=== PATIENT | female | born 1945 | race Caucasian/White ===

== ENCOUNTER 2017-04-14 16:29 | Inpatient (IN) | payer MEDICARE, OTHER ==
[2017-04-14 18:17] LABS: #Eosinphils 0.1 thou/uL (0.0-0.7); #Lymphocytes 1.1 thou/uL (1.20-3.40); #Monocytes 0.5 thou/uL (0.11-0.59); #Neutrophils 6.5 thou/uL (1.40-6.50); %Basophils 0.3 % (0.0-1.0); %Eosinophils 1.1 % (0.0-10.0); %Lymphocytes 13.2 % (21.0-51.0); %Monocytes 5.8 % (0.0-10.0); %Neutrophils 79.6 % (42.0-75.0); Hemoglobin 9.7 g/dL (12.0-16.0); Mean Corpuscular Volume 93.6 fl (81.0-99.0); Mean Platelet Volume 7.4 fL (7.4-10.4); Platelet Count 163 thou/uL (130-400); Red Blood Cell (RBC) Count 3.22 mill/uL (4.20-5.40); White Blood Cell (WBC) Count 8.2 thou/uL (4.8-10.8)
[2017-04-14 18:43] LABS: ALT (SGPT) 21 U/L (8-55); AST (SGOT) 19 U/L (5-34); Albumin 3.9 g/dL (3.4-4.8); Alkaline Phosphatase 55 U/L (40-150); Anion Gap 18 mmol/L (10-20); BUN (Urea Nitrogen) 74 mg/dL (9.8-20.1); Bilirubin, Total 0.4 mg/dL (0.2-1.2); Calc. Creatinine Clearance 0 mL/min (70-130); Calcium 9.1 mg/dL (7.8-10.44); Carbon Dioxide 19 mmol/L (23-31); Chloride 105 mmol/L (98-107); Estimated GFR-MDRD 7; Globulin 2.7 g/dL (2.4-3.5); Glucose 68 mg/dL (80-115); Potassium 5.7 mmol/L (3.5-5.1); Protein, Total 6.6 g/dL (6.0-8.3); Sodium 136 mmol/L (136-145)
[2017-04-14] MEDS ORDERED: Furosemide 40 MG/4 ML VIAL ONE (19:28)
[2017-04-14] MEDS ORDERED: Nitroglycerin 2% Ointment 1 INCH/1 GM Packet ONE (19:28)
[2017-04-14 19:46] LABS: CKMB 5.9 ng/mL (0-6.6)
--- NOTE | 2017-04-14 19:50 | RAD ---
PORTABLE CHEST: 04/14/17 HISTORY: Shortness of breath. COMPARISON: 09/24/13 study. The heart size is enlarged with postop sternotomy changes. The lungs are clear of infiltrates. No sig ns of failure. IMPRESSION: Cardiomegaly. POS: PAUL
[2017-04-14] MEDS ORDERED: Dextrose 50% Abboject 50 ML SYRINGE SLOW IVP PRN (23:03)
[2017-04-14] MEDS ORDERED: HumaLOG 300 UNITS/3 ML VIAL SC PRN (23:03)
[2017-04-14] MEDS ORDERED: Dextrose 5% in Water 1,000 ML IV PRN (23:03)
--- NOTE | 2017-04-14 23:09 | PDOC.EVN ---
Event Note - Event Note Event Note: Patient seen and examined by me. History, exam, assessment and plan reviewed/ discussed with Dr. Berkowitz and agree with resident's documentation. Briefly this is a 71 year old female with history of HTN, DM, CKD, CAD s/p CABG and AVR presents complaining of 1 week history of worsening lower extremity edema. States that she ahs gained 12 pounds over the week. Has noted some increased SOB since this started. Denies any CP, BROWN, diaphoresis. Denies any fever/ chills. States that she does not add salt to her food. PE: Afebrile BP 170-190s/80s Lungs- CTA b/l CV- RRR, 3/6 systolic murmur; Abd - soft, nt/nd Ext- no C/C 2+ edema lower ext. EKG- NSR; nonspecific ST changes ; no change from prior EKG; CXR- cardiomegaly BUN/Cr 74/6.23 (06/2016- 48/3.23) . BNP 985 A/P: 1) Volume overload secondary to worsening renal function- given lasix in ER with improvement in symptoms; plan to consult nephrology in AM (pt sees Dr. Cuello); most likely will need dialysis; 2) Hyperkalemia- mild; no EKG changes; continue to monitor. 3) DM- continue home meds and monitor BG. 4) HTN- resume home meds and adjust as needed.
[2017-04-14 23:18] VITALS: BMI 28.9
[2017-04-15 00:17] LABS: CKMB 4.8 ng/mL (0-6.6); Troponin I 0.053 ng/mL (< 0.028)
[2017-04-15] MEDS ORDERED: Furosemide 40 MG/4 ML VIAL SLOW IVP SCH ×2 (02:00→08:00)
[2017-04-15 05:37] LABS: CKMB 4.1 ng/mL (0-6.6); Troponin I 0.084 ng/mL (< 0.028)
[2017-04-15 05:42] LABS: Anion Gap 15 mmol/L (10-20); BUN (Urea Nitrogen) 77 mg/dL (9.8-20.1); Calc. Creatinine Clearance 11 mL/min (70-130); Carbon Dioxide 22 mmol/L (23-31); Chloride 107 mmol/L (98-107); Estimated GFR-MDRD 7; Glucose 115 mg/dL (80-115); Phosphorus 7.6 mg/dL (2.3-4.7); Potassium 4.9 mmol/L (3.5-5.1); Sodium 139 mmol/L (136-145)
--- NOTE | 2017-04-15 05:48 | HP-2 ---
CODE STATUS: Full. PRIMARY CARE PHYSICIAN: This is a city call, the patient is from out of town ATTENDING PHYSICIAN: Dr. Montse Michael RESIDENT: PGY1 Dr. Yamileth Berkowitz CHIEF COMPLAINT: Lower extremity swelling. HISTORY OF PRESENT ILLNESS: This is a 71-year-old female that presented secondary to lower extremity swelling for the past week. She states that she had also had some shortness of breath with moderate exertion and two-pillow orthopnea. Symptoms have worsened and the patient has noticed weeping from the right lower extremity, which prompted her to come into the emergency department. The patient als o endorses some abdominal swelling which has progressed over the course of a few days. The patient d oes not have a previous diagnosis of congestive heart failure. She is uncertain of when her last ech o was done; however, she is fairly certain it was greater than a year ago. The patient denies any co ugh, palpitations, chest pain, nausea, vomiting or weakness. She does have a history of coronary art bill disease for which she had a 1 vessel CABG. Also of note, the patient has severe chronic kidney d isease. She is not currently on dialysis. She does see Dr. Cuello as an outpatient. She has not been placed on any medication specifically for her chronic kidney disease. The patient was given 40 mg of Lasix in the emergency department and some nitro paste which seemed to help with the shortness of br eath and the lower extremity swelling. PAST MEDICAL HISTORY: 1. Coronary artery disease status post CABG 1 vessel. 2. Diabetes mellitus type 2. 3. Hypertension. 4. Stage 5 chronic kidney disease. 5. Chronic normocytic anemia. PAST SURGICAL HISTORY: 1. Aortic valve replacement in 09/2013. 2. CABG x1 vessel. 3. Left hip surgery. ALLERGIES: PENICILLIN. MEDICATIONS: 1. Terazosin 10 mg daily. 2. Isosorbide dinitrate 20 mg t.i.d. 3. Clonidine 0.2 mg daily. 4. Nifedipine 90 mg daily. 5. Aspirin 81 mg daily. 6. Novolin 70/30 20 units subcu q.a.m. and 10 units subcutaneous p.m. 7. Vitamin D3 2000 units daily. 8. Cipro 500 mg b.i.d. (patient just finished this antibiotic for treatment of UTI). FAMILY HISTORY: Noncontributory. SOCIAL HISTORY: The patient denies tobacco, alcohol, or drug use. REVIEW OF SYSTEMS: A 12 point review of systems was performed, all were negative except as listed in the HPI and as indicated below. The patient does endorse a 12 pound weight gain within the last 2 w eeks. She has noticed some significant exercise intolerance and shortness of breath within the last week or two. The lower extremity swelling really started within the last week. She has not had prob lems with lower extremity swelling previously. PHYSICAL EXAMINATION: VITAL SIGNS: Blood pressure 186/79, pulse 75, respiratory rate 16, T-max 97.8, pulse ox 94% on room air, current weight 81 kilograms. GENERAL: Alert and oriented x3, no acute distress. Well-developed, well-nourished, obese, appropria tely interactive. EYES: Pupils equally round, reactive to light and accommodation. Extraocular muscle intact. ENT: Nasal mucosa within normal limits. NECK: Supple. No lymphadenopathy. CARDIOVASCULAR: Regular rate and rhythm, there is a 3/6 systolic murmur and a possible S3. Radial a nd pedal pulses 2+. RESPIRATORY: Normal effort, no retractions. Lungs are clear to auscultation bilaterally. SKIN: Warm and dry. No cyanosis or lesions. ABDOMEN: Soft, nontender to palpation and bowel sounds are positive in all 4 quadrants. Patient rosario s have a palpable reducible ventral hernia. EXTREMITIES: No clubbing or cyanosis, the patient has 2+ pitting edema on the right lower extremity, 1+ pitting edema on the left lower extremity. The right lower extremity is notably more swollen martina n the left. MUSCULOSKELETAL: Structure within normal limit. Tone within normal limit. NEUROLOGIC: No focal deficits. Cranial nerves II-XII intact. GCS 15. PSYCHIATRIC: Appropriate. LABORATORY DATA: 1. CBC reveals a white blood cell count 8.2, hemoglobin 9.7, hematocrit 30.2, platelets 163. 2. Sodium 136, potassium 5.7, chloride 105, bicarbonate 19, BUN 74, creatinine 6.23, glucose is 68, calcium 9.1, total protein 6.6, albumin 3.9, AST 19, ALT 21, alkaline phosphatase 55, and total bilir ubin 0.4. 3. CK-MB 5.9, troponin 0.030. 4. BNP 986. 5. Chest x-ray: Cardiomegaly. ASSESSMENT AND PLAN: This is a 71-year-old female with past medical history of coronary artery disea se status post coronary artery bypass graft, hypertension, and chronic kidney disease stage 5 that pr esents with shortness of breath and lower extremity swelling. 1. New onset congestive heart failure versus volume overload from chronic kidney disease stage 5. T he patient was admitted to telemetry. We will consult Cardiology for potential new-onset congestive heart failure. Additionally, we will consult the patient's customer order clerk, Dr. Cuello. I did discuss the need for dialysis as her creatinine has risen from 3 to 6 since June. Additionally, her potassium is elevated at 5.7. The patient will be given a dose of Kayexalate 30 mg to assist with decreasing t he potassium. The patient was given 40 mg IV Lasix in the emergency department which did improve her symptoms. She has been urinating frequently since administration of the Lasix. The patient has not been on Lasix previously. We will give an additional dose of IV Lasix, 40 mg in the a.m. and reeval uate. An echo is pending for the a.m. We will continue to monitor the patient's I's and O's and do a daily weight to ascertain how much fluid the patient is retaining. Due to worsening kidney disease , a phosphorus and a PTH were ordered to assess the extent of the kidney disease and possible effects systemically. 2. Chronic kidney disease stage 5, not on hemodialysis. The patient likely needs dialysis based on BUN and creatinine at today's visit. We will consult Dr. Cuello in the morning as this is the patient's customer order clerk. The phosphorus is pending. Potassium was elevated and 1 dose of Kayexalate was given . PTH is pending to evaluate possible bone involvement. We will not repeat Lasix today, but will gi ve an additional dose tomorrow and reevaluate patient's status at that time. The patient is stable a t this time. She had no significant EKG changes and she is satting well on room air. 3. Hyperkalemia, likely secondary to chronic kidney disease. Kayexalate 30 mg x1 was given and we w ill monitor with a.m. BMP. 4. Diabetes mellitus type 2. We will continue patient's home medications and place her on a mild sl iding scale insulin while here in the hospital. We will place patient with hypoglycemia protocol. O f note, patient's blood sugar was 68 on admission. We will check again before administrating her a.m . dose of Novolin. 5. Coronary artery disease status post coronary artery bypass graft. We will trend troponins and co ntinue to give patient aspirin. 6. Hypertension. Continue home medications and monitor. 7. Deep venous thrombosis prophylaxis. SCDs. DISPOSITION AND LENGTH OF HOSPITAL STAY: Two days. Symptomatic medications will be provided. History of physical exam as well as management discussed with Dr. Montse Michael.
[2017-04-15] MEDS ORDERED: Furosemide 40 MG TAB PO SCH (07:30)
--- NOTE | 2017-04-15 08:06 | PDOC.FM ---
- Subjective Subjective: The patient reports that her breathing has improved since getting the lasix in the ED. She is breathing comfortably on RA. She is feeling a little better this AM. Denies any chest pain. She has no specific complaints. - Objective MAR Reviewed: Yes Vital Signs & Weight: Vital Signs (12 hours) Temp Pulse Resp BP Pulse Ox 04/15/17 03:44 98.3 F 78 18 182/92 H 95 04/15/17 01:09 82 20 158/78 H 04/15/17 00:45 88 20 231/103 H 95 04/14/17 23:03 97.2 F L 74 20 226/97 H 94 L 04/14/17 22:35 96.2 F L 82 20 95 Weight Weight 80.377 kg I&O: 04/14/17 04/15/17 04/16/17 06:59 06:59 06:59 Intake Total 490 Output Total 1200 Balance -710 Result Diagrams: 04/14/17 18:04 04/15/17 04:30 <Vane Armstrong - Last Filed: 04/15/17 08:04> - Objective Vital Signs & Weight: Vital Signs (12 hours) Temp Pulse Resp BP BP Pulse Ox 04/15/17 09:31 71 160/75 H 04/15/17 07:36 98.4 F 71 18 160/75 H 96 04/15/17 03:44 98.3 F 78 18 182/92 H 95 04/15/17 01:09 82 20 158/78 H 04/15/17 00:45 88 20 231/103 H 95 04/14/17 23:03 97.2 F L 74 20 226/97 H 94 L 04/14/17 22:35 96.2 F L 82 20 95 Weight Weight 80.377 kg I&O: 04/14/17 04/15/17 04/16/17 06:59 06:59 06:59 Intake Total 490 Output Total 1200 Balance -710 Result Diagrams: 04/14/17 18:04 04/15/17 04:30 <Shaheen Cunningham - Last Filed: 04/15/17 10:11> Phys Exam - Physical Examination Constitutional: NAD HEENT: moist MMs Neck: no nodes, full ROM Respiratory: no wheezing, no rales, no rhonchi, clear to auscultation bilateral Cardiovascular: RRR 3/6 systolic murmur Gastrointestinal: soft, non-tender, positive bowel sounds Musculoskeletal: edema present (1+ pitting edema, worse on the R LE) Neurological: non-focal, moves all 4 limbs Psychiatric: normal affect, A&O x 3 <Vane Armstrong - Last Filed: 04/15/17 08:04> Dx/Plan (1) ESRD (end stage renal disease) Code(s): N18.6 - END STAGE RENAL DISEASE Status: Acute Plan: Patient has had significant decline in kidney function since 06/2016. Her Creatinine has gone from 3->6 and GFR has decreased to 7. Phosphorous 7.6, K was elevated initially, the patient is s/p kayexalate and lasix which improved the potassium to normal. No EKG changes. Dr. Cuello is her bowling teacher, I consulted him and he confirmed that she will need to be started on dialysis. -Deny with General surgery has been consulted for dialysis catheter placement -NPO for dialysis catheter placement -Patient will get dialysis (2) Elevated brain natriuretic peptide (BNP) level Code(s): R79.89 - OTHER SPECIFIED ABNORMAL FINDINGS OF BLOOD CHEMISTRY Status : Acute Plan: Elevated BNP to 985.8. The patient has no known h/o CHF. This could all be 2/2 ESRD. -Will get Echo to r/o heart failure -Monitor on tele (3) Elevated troponin Code(s): R74.8 - ABNORMAL LEVELS OF OTHER SERUM ENZYMES Status: Acute Plan: Troponins are elevated 2/2 ESRD. Patient has no EKG signs of ischemia and is having no chest pain. (4) Type 2 diabetes mellitus Status: Acute QualifierTitle: Diabetes mellitus complication status: with unspecified complications Diabetes mellitus prison insulin use: with medical file clerk use Qualified Code(s): E11.8 - Type 2 diabetes mellitus with unspecified complications; Z79.4 - forming machine tender (current) use of insulin; Z79.4 - forming machine tender ( current) use of insulin; Z79.4 - forming machine tender (current) use of insulin; Z79.4 - snf (current) use of insulin Plan: Continue home 70/30 regimen, SSI, Accuchecks ACHS, Diabetic diet after patient is no longer NPO (5) Anemia in chronic kidney disease Code(s): N18.9 - CHRONIC KIDNEY DISEASE, UNSPECIFIED; D63.1 - ANEMIA IN CHRONIC KIDNEY DISEASE Status: Acute QualifierTitle: Chronic kidney disease stage: on chronic dialysis Qualified Code(s): N18.6 - End stage renal disease; D63.1 - Anemia in chronic kidney disease; D63.1 - Anemia in chronic kidney disease; Z99.2 - Dependence on renal dialysis; Z99.2 - Dependence on renal dialysis; Z99.2 - Dependence on renal dialysis; Z99.2 - Dependence on renal dialysis Plan: Patient is about to be started on dialysis. She receives Epogen for this. Will monitor. (6) Hypertension Code(s): I10 - ESSENTIAL (PRIMARY) HYPERTENSION Status: Acute QualifierTitle: Hypertension type: unspecified Qualified Code(s): I10 - Essential (primary) hypertension Plan: Continue home meds. Patient's BP's were very elevated, however when a manual BP was checked it was much lower. -Will check only manual BP's on the patient -Continue home meds (7) Aortic stenosis Code(s): I35.0 - NONRHEUMATIC AORTIC (VALVE) STENOSIS Status: Acute QualifierTitle: Cardiac valve disease etiology: etiology unspecified Qualified Code(s): I35.0 - Nonrheumatic aortic (valve) stenosis Plan: This is likely the cause of 3/6 systolic murmur -Will get an echo (8) Coronary atherosclerosis of [place] coronary artery Code(s): I25.10 - ATHSCL HEART DISEASE OF [place] CORONARY ARTERY W/O ANG PCTRS Status: Acute QualifierTitle: [place] vs. transplanted heart: [place] heart Associated angina: angina presence unspecified Qualified Code(s): I25.10 - Atherosclerotic heart disease of [place] coronary artery without angina pectoris Plan: Continue aspirin (9) Status post coronary artery bypass graft Code(s): Z95.1 - PRESENCE OF AORTOCORONARY BYPASS GRAFT Status: Acute Plan: No chest pain currently, continue home meds <Vane Armstrong - Last Filed: 04/15/17 08:04> Attending Addendum - Attending Addendum I personally evaluated the patient and discussed the management with Dr. Armstrong. I agree with the History, Examination, Assessment and Plan documented above with any addition or exceptions noted below. Patient with chronic renal disease that has now progressed to ESRD necessitating HD. She is going for venous mapping and HD catheter placement this morning. Further renal treatment per Dr. Cuello. She has some evidence of CHF , and she likely has some degree of that due to her history of severe aortic stenosis. However, will obtain Echo to ensure this is not just volume overload from CKD. If abnormal, will need Cardiology consult due to new onset HF. She has anemia of chronic disease, continue Epogen. BP elevated, will need escalation of therapy, likely increase of Isordil dosage to help offset increased preload associated with volume overload. <Shaheen Cunningham - Last Filed: 04/15/17 10:11>
[2017-04-15] MEDS ORDERED: Epoetin (ESRD) 20,000 UNITS/ML SC SCH (09:00)
[2017-04-15] MEDS: NIFEdipine XL 90 MG TAB PO SCH (09:31)
[2017-04-15] MEDS: cloNIDine 0.1 MG TAB PO SCH ×2 (09:32→20:47)
[2017-04-15] MEDS: Isosorbide Dinitrate 20 MG TAB PO SCH ×3 (09:32→20:47)
[2017-04-15] MEDS: Aspirin 81 mg Enteric Coated Tablet PO SCH (09:33)
--- NOTE | 2017-04-15 09:51 | HP ---
HISTORY OF PRESENT ILLNESS: Ms. Lean Simms is a 71-year-old female who lives in [place], . I took care of her for dialysis access many years ago. The patient has been followed by Litzy Cuello for progressive chronic kidney disease and now needs dialysis access. She has a hypertensive diabetic nephropathy. She has had a history of aortic valve replacement, on aspirin daily and a sing le coronary artery bypass grafting. She is followed by Dr. Levy, last saw him a few months ago. S he denies any cardiac symptoms. GFR is markedly low and Dr. Cuello has asked for dialysis access. She has a Hep-Lock in her distal right forearm, she is right-handed. ALLERGIES: PENICILLIN. TOBACCO: None. ALCOHOL: None. HOME MEDICATIONS: Cipro b.i.d., vitamin D3, insulin 10 units at bedtime, Catapres 0.1 mg b.i.d., nif edipine, Procardia-XL 90 mg daily, NPH insulin 70/30 20 units subcutaneously a.m., aspirin 81 mg a da y, terazosin 2 mg a day, isosorbide 20 mg t.i.d. PAST SURGICAL HISTORY: Coronary artery bypass grafting, one vessel and aortic valve replacement in 2 014. She is followed by Dr. Levy. Total hip replacement in left, laparoscopic cholecystectomy wit h past colonoscopy two years ago, normal, no polyps. PAST MEDICAL HISTORY: Insulin-dependent diabetes mellitus, hypertension, end-stage renal disease, pr osthetic aortic valve. REVIEW OF SYSTEMS: Ten point noncontributory. PHYSICAL EXAMINATION: VITAL SIGNS: 5 foot 6, 177 pounds, 28 BMI, 98.4, 71, 160/75. HEENT: Unremarkable. Neck, groins, axilla without lymphadenopathy, no overt neurological deficits. Pupils equal, round, reactive to light. CARDIAC: Regular rate and rhythm. LUNGS: Clear to auscultation. ABDOMEN: Soft, obese, umbilical hernia. EXTREMITIES: Unremarkable. Palpable radial pulses. LABORATORY DATA: Hemoglobin 9.7, white count 8.2, sodium 139, potassium 4.9, BUN 77, creatinine 6.3, GFR 7. ASSESSMENT AND PLAN: 1. End-stage renal disease in need of dialysis access. The patient is scheduled today for placement of a hemodialysis catheter and also central line to preserve her veins. We will plan placement of r ight or left arm dialysis fistula and/or prosthetic graft pending vein quality. Ultrasound vein charles ing will be done this morning, she is on her way to do that now. She understands the risks of infect ion, bleeding, reoperation, ischemic and revisions, thrombosis, possible use of prosthetic grafts and consents. 2. Coronary artery disease, stable. 3. Prosthetic aortic valve. 4. Insulin-dependent diabetes mellitus. 5. Hypertension. 6. Obesity, mild BMI of 28. 7. Umbilical hernia, asymptomatic. 8. Patient is not interested in peritoneal dialysis at this time. She understands that if she ever becomes interested in this umbilical hernia repair, it will be necessary at that time.
--- NOTE | 2017-04-15 10:38 | CON ---
DATE OF SERVICE: 04/15/2017 RENAL MEDICINE HISTORY: Ms. Simms is a 71-year-old white female with chronic renal failure from hypertensive nephr opathy. She has in the past been diagnosed with right-sided obstruction and a ureteral stent has erica manzanares been placed by Dr. Mariee. Renal function has stabilized since that time, but it has worsened in the last several weeks. She is now admitted for generalized edema. Her leg swelling has worsened a nd she has more facial edema. We are now being consulted for her chronic renal failure. Please note her creatinine has worsened with creatinine more than 6 mg percent. REVIEW OF SYSTEMS: Positive for generalized edema. Mild shortness of breath, no nausea, no vomiting , no diarrhea, no constipation. Appetite and energy level is fair. No headache, no diplopia, no fev er or chills. No gross hematuria. No dysuria. No hematochezia, no melena, no hematemesis, no fever or chills, no joint pains. No new skin rash. HOME MEDICATIONS: Includes the following; vitamin D3 2000 international units daily, vitamin B12 100 0 mcg every day, Isordil 20 mg tab t.i.d., clonidine 0.1 mg 2 tablets at bedtime, calcitriol 0.25 mcg daily, nifedipine ER 90 mg once a day, aspirin 81 mg tab once a day, terazosin 2 mg tab at bedtime, Novolin 70/30 units subcu in the morning and 10 units at night. PAST MEDICAL HISTORY: 1. Hypertension. 2. Chronic renal failure from hypertensive nephropathy. 3. Hyperlipidemia. 4. Type 2 diabetes mellitus. 5. History of proteinuria. 6. Valvular heart disease. PAST SURGICAL HISTORY: 1. Status post cardiac catheterization. 2. Status post CABG. 3. Status post aortic valve replacement. 4. Status post colonoscopy. 5. Status post back surgery. 6. Status post laparoscopic cholecystectomy. ALLERGIES: PENICILLIN. TRAUMA: None. IMMUNIZATIONS: Up to date. HOSPITALIZATIONS: Please see past medical history. FAMILY HISTORY: No family history of ESRD. Positive history of bladder cancer. 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 No history of smoking. Alcohol none. No blood transfusion. Education high school. Active lifestyl e. PHYSICAL EXAMINATION: VITAL SIGNS: Blood pressure is 160/75, heart rate 71, respiratory rate 18, temperature 98.4, pulse o x 96%. GENERAL: Awake, alert, comfortable, not in distress. SKIN: Adequate turgor. HEENT: Slightly pale conjunctivae, anicteric sclerae. NECK: No neck mass, no carotid bruits, no JVD. CHEST: No deformities. LUNGS: Decreased breath sounds. No wheezing, no crackles. HEART: Normal sinus rhythm. Grade 2/6 systolic murmur, no gallops or rubs. ABDOMEN: Globular, soft, nontender. EXTREMITIES: Positive for edema. NEUROLOGIC: Moving all extremities. No tremors, no asterixis, no ataxia. LABORATORY DATA: Laboratories of 04/15/2017; sodium 139, potassium 4.9, chloride 107, carbon dioxide 22, BUN 77, creatinine 6.33, phosphorus is 7.6, troponin I 0.084, and TSH 4.3. IMAGING DATA: Chest x-ray of 04/14/2017 shows clear - no CHF, no infiltrates. ASSESSMENT AND PLAN: 1. Chronic renal failure, progressive worsening of her renal dysfunction. Our plan is to initiate h emodialysis with this patient. She prefers hemodialysis than peritoneal dialysis. Her GFR was noted at 7 mL per minute. I have consulted Surgery for placement of permanent dialysis catheter as well a s for possible AV fistula. 2. Anemia. Start Epogen 7500 units subcutaneously every week, ferrous sulfate 325 mg b.i.d. 3. Hyperphosphatemia. Start Renvela 800 mg 1 tab t.i.d. with meals. Overall, prognosis remains guarded.
[2017-04-15] MEDS ORDERED: Midazolam HCl 2 mg/2 ml Vial ONE ×2 (11:05→11:30)
[2017-04-15] MEDS ORDERED: Fentanyl 100 MCG/2 ML VIAL ONE ×2 (11:05→11:30)
[2017-04-15] MEDS ORDERED: Heparin 1,000 UNITS/ML VIAL ONE (11:11)
[2017-04-15] MEDS ORDERED: Levofloxacin 500 mg/D5W 100 ml Premix Bag ONE (11:26)
[2017-04-15] MEDS ORDERED: Norepinephrine 4 MG/4 ML VIAL ONE (11:30)
[2017-04-15] MEDS ORDERED: Norepinephrine 8 MG/0.9% NS 0 ML ONE (11:30)
[2017-04-15] MEDS ORDERED: Propofol 1,000 MG/100 ML VIAL IV ONE (11:30)
[2017-04-15] MEDS ORDERED: Bupivacaine/Epinephrine 0.25% 30 ML VIAL ONE (11:32)
[2017-04-15] MEDS ORDERED: Heparin 5,000 UNITS/ML VIAL ONE (11:32)
[2017-04-15] MEDS ORDERED: Sodium Chloride 0.9% 10 ML ONE (11:32)
[2017-04-15] MEDS ORDERED: Heparin 10,000 UNITS/1 ML VIAL ONE (11:32)
[2017-04-15] MEDS ORDERED: Lidocaine 2% PF 5 ML VIAL ONE (11:32)
[2017-04-15] MEDS ORDERED: Protamine Sulfate 50 MG/5 ML VIAL ONE (11:32)
--- NOTE | 2017-04-15 12:43 | ULT ---
BILATERAL UPPER EXTREMITY VENOUS DUPLEX SONOGRAM FOR VEIN MAPPING: History: Renal failure. Need for hemodialysis access. FINDINGS: Good color and spectral doppler flow are present within the subclavian and internal jugular veins harvey aterally. Measurements are as follows: RIGHT UPPER EXTREMITY BRACHIAL ARTERY: 5 mm RADIAL ARTERY: 3 mm ULNAR ARTERY: 2 mm CEPHALIC VEIN Proximal Arm: 3 mm Mid Arm: 3 mm Distal Arm: 2 mm Antecubital Fossa: 2 mm Proximal Forearm: 1 mm Mid Forearm: 3 mm Distal Forearm: 2 mm BASILIC VEIN Proximal Arm: 9 mm Mid Arm: 7 mm Distal Arm: 6 mm Antecubital Fossa: 5 mm Proximal Forearm: 3 mm Mid Forearm: 3 mm Distal Forearm: 1 mm LEFT UPPER EXTREMITY BRACHIAL ARTERY: 4 mm RADIAL ARTERY: 2 mm ULNAR ARTERY: 2 mm CEPHALIC VEIN Proximal Arm: Not seen Mid Arm: Not seen Distal Arm: 2 mm Antecubital Fossa: 1 mm Proximal Forearm: 2 mm Mid Forearm: 2 mm Distal Forearm: 2 mm BASILIC VEIN Proximal Arm: 4 mm Mid Arm: 5 mm Distal Arm: 5 mm Antecubital Fossa: 4 mm Proximal Forearm: 4 mm Mid Forearm: 1 mm Distal Forearm: 1 mm IMPRESSION: Patient vascular structures within each upper extremity with measurements as detailed above. POS: [facility]
[2017-04-15 12:50] LABS: HBSAB Concentration 0.11 mIU/mL; HBSAg Index 0.16 S/CO (0-0.99); Hep B Core Total Ab Non-Reactive (NonReactive); Hep B Core Total Index 0.07 S/CO (0-0.79); Hep B Surf AB Non-Reactive (NonReactive); Hep B Surf Ag Non-Reactive S/CO (NonReactive); Hep C IgG Ab Non-Reactive (NonReactive); Hep C Index 0.15 S/CO (0-0.79)
[2017-04-15] MEDS ORDERED: Promethazine HCl 25 MG/ML VIAL SLOW IVP PRN (13:17)
[2017-04-15] MEDS ORDERED: Meperidine HCl/PF 25 MG/ML VIAL SLOW IVP PRN (13:17)
[2017-04-15] MEDS ORDERED: Ondansetron HCl/PF 4 MG/2 ML Vial IVP PRN (13:17)
[2017-04-15] MEDS ORDERED: Morphine Sulfate 2 MG/ML SYRINGE SLOW IVP PRN (13:17)
--- NOTE | 2017-04-15 13:27 | OP ---
DATE OF PROCEDURE: 04/15/2017 PREOPERATIVE DIAGNOSES: End-stage renal disease, poor veins by ultrasound vein mapping. POSTOPERATIVE DIAGNOSES: End-stage renal disease, poor veins by ultrasound vein mapping. Good cepha lic vein, right wrist. PROCEDURE: Left IJ central line, right IJ cuffed tunnel hemodialysis catheter, angiodynamics precurv ed. Ultrasound and fluoroscopy used for placement. Right Adam fistula calibrated to a 4 mm oliveira ry dilator. Radial artery was heavily calcified, arterial sclerotic, but had good flow. SURGEON: Dr. Darren Barclay ANESTHESIA: Regional, TIVA. Local 0.25% Marcaine with epinephrine, 30 mL, mixed with 2% Xylocaine, 10 mL. PROCEDURE IN DETAIL: The patient was taken to the operating room where under intravenous sedation, r ight arm regional anesthesia, chest, neck, and right upper extremity was prepared with ChloraPrepdr bergman in routine fashion. Local anesthetic mixture infiltrated into skin and subcutaneous tissue abou t the operative site for line placement. Using ultrasound guidance, right and left internal jugular vein were cannulated, trocar catheters placed and J-wire threaded and trocar catheter removed. Skin incised and enlarged sharply on both sides. Stab incision made right chest. Using the tunneling dev ice, the precurved angiodynamics cuffed tunnel hemodialysis catheter tunneled between the two incisio ns, placing the fabric cuff beneath the skin exit site and catheter secured with 2 interrupted suture s of 3-0 nylon. Smaller and medium sized dilators placed over the J-wire in the internal jugular vei n and removed. Dilator and pull-away sheath placed over the J-wire in the superior vena cava and dil ator and J-wire removed. Catheter placed with pull-away sheath and pull-away sheath removed. Platys ma approximated with 4-0 Monocryl, skin with subdermal 4-0 Monocryl and DermaGlue applied. Each port aspirated blood and flushed with saline solution and heparinized saline solution 1000 units heparin per mL indicated volume of the port. Sterile dressings and a Biopatch applied. Seldinger technique used to place a left IJ triple lumen catheter securing it with 3-0 nylon suture a nd Biopatch. Each port aspirated of blood and flushed with saline solution. Sterile dressing applie d. Attention was turned to the right wrist. Despite ultrasound vein mapping noting poor venous structur es, there was noted to be a good cephalic vein at the wrist. Incision was made longitudinal between the radial artery and cephalic vein and carried down through the skin and subcutaneous tissue and bot h were dissected free. Cephalic vein dissected free dividing branch between 4-0 silk ties and clips and ligating the stump on the hand side with 3-0 silk tie. Vein spatulated calibrated with coronary dilators 1 mm to a 4 mm coronary dilator without restriction. It was dissected free proximally, bran ches ligated between 4-0 silk ties and clips. The patient was given 6000 units of heparin intravenou sly. After adequate circulation time, the radial artery was clamped proximally and distally and long itudinal arteriotomy made sharply, and accordingly the veins spatulated to appropriate length and con tinuous suture of 6-0 Prolene used for a 2 cm anastomosis. Good hemostasis obtained with 6-0 Prolene . The patient was given protamine intravenously 25 mg. Subcutaneous tissues approximated with 3-0 M onocryl, skin with subdermal 4-0 Monocryl and DermaGlue applied. Good Doppler signals noted in the c ephalic vein outflow. The patient tolerated the procedure well.
--- NOTE | 2017-04-15 14:24 | RAD ---
PORTABLE CHEST: Date: 04-15-17 Provided Clinical History: Central line placement. FINDINGS: Comparison 04-14-17. Cardiac silhouette appears enlarged. Median sternotomy changes are again seen. Left IJ central line i s noted with tip overlying the SVC as well as right IJ dialysis catheter with tips overlying the expe cted location of the SVC/brachiocephalic confluence. No focal consolidation or pleural fluid or pneum othorax apparent. IMPRESSION: No evidence for an acute cardiopulmonary process. POS: HINA
[2017-04-15] MEDS: Sevelamer Carbonate 800 MG TAB PO SCH ×2 (15:21→17:50)
[2017-04-15] MEDS: Insulin NPH/Reg Insulin Hm 300 UNITS/3 ML VIAL SC SCH ×2 (15:22→20:47)
[2017-04-15] MEDS ORDERED: ePHEDrine/0.9% NaCl/PF SYRINGE 50 mg/10 ml ONE (16:22)
[2017-04-15] MEDS ORDERED: Propofol 200 MG/20 ML VIAL ONE (16:22)
[2017-04-15] MEDS ORDERED: Heparin 10,000 UNITS/ 10 ML VIAL ONE (16:22)
[2017-04-15] MEDS ORDERED: PHENYLEPHRINE-NS 100 MCG/ML 10 ML SYRINGE ONE (16:22)
[2017-04-15] MEDS ORDERED: Ondansetron HCl/PF 4 MG/2 ML Vial ONE (16:22)
[2017-04-15] MEDS ORDERED: Bupivacaine HCl 0.5%/Epinephrine 1:200,000/PF 30 ml Vial ONE (16:47)
[2017-04-15] MEDS: Terazosin HCl 1 MG CAP PO SCH (17:46)
[2017-04-15] MEDS: Acetaminophen 325 MG TAB PO PRN (20:47)
--- NOTE | 2017-04-16 08:18 | PRG ---
DATE OF SERVICE: 04/16/2017 SERVICE: Renal Medicine. SUBJECTIVE: Ms. Simms underwent dialysis catheter placement and AV fistula last night. She also un derwent a 1-hour hemodialysis. She did well. This morning, she voices no new complaints. She denie s any chest pain, shortness of breath, nausea or vomiting. She is currently tolerating dialysis. I am at the bedside supervising her dialysis. PHYSICAL EXAMINATION: VITAL SIGNS: Blood pressure is 150/76, heart rate 76, respiratory rate 14, temperature 97.9, pulse o x 96%. GENERAL: Noted to be awake and alert, comfortable, not in distress. SKIN: Adequate turgor. HEENT: Slightly pale conjunctivae, anicteric sclerae. NECK: No neck mass, no carotid bruits. No JVD. CHEST: No deformities. LUNGS: Clear breath sounds. No wheezing, no crackles. HEART: Normal sinus rhythm. No murmur, no gallops or rubs. ABDOMEN: Globular, soft, nontender, no masses. EXTREMITIES: No edema, no deformities. Right upper extremity positive for AV fistula, positive for bruit. MEDICATIONS: Of 04/16/2017 was reviewed. LABORATORY DATA: Of 04/14/2017, hemoglobin 9.7. On 04/15/2017, BUN 77, creatinine 6.33. On 017, glucose 114. ASSESSMENT AND PLAN: 1. Chronic renal failure/end-stage renal disease, hemodialysis has been initiated. She is toleratin g said treatment. My plan is to do a 2-hour hemodialysis today and a 3-hour hemodialysis in a.m. We will make arrangements for dialysis placement with the patient. For the moment, agree with current management. 2. Hypertension. Continue current blood pressure medications. 3. Anemia. Epogen has been started. 4. Hyperphosphatemia, Renvela has been also started with the patient.
[2017-04-16] MEDS: NIFEdipine XL 90 MG TAB PO SCH (09:55)
[2017-04-16] MEDS: Terazosin HCl 1 MG CAP PO SCH ×2 (09:56→20:41)
[2017-04-16] MEDS: cloNIDine 0.1 MG TAB PO SCH ×2 (09:56→20:41)
[2017-04-16] MEDS: Sevelamer Carbonate 800 MG TAB PO SCH ×3 (09:56→17:40)
[2017-04-16] MEDS: Aspirin 81 mg Enteric Coated Tablet PO SCH (09:56)
[2017-04-16] MEDS: Isosorbide Dinitrate 20 MG TAB PO SCH ×3 (09:57→20:41)
[2017-04-16] MEDS: Insulin NPH/Reg Insulin Hm 300 UNITS/3 ML VIAL SC SCH ×2 (09:57→20:43)
[2017-04-16] MEDS ORDERED: Tuberculin PPD 0.1 ML VIAL I-DERMAL SCH (10:45)
--- NOTE | 2017-04-16 15:00 | ADD-PRG ---
DATE OF SERVICE: 04/16/2017 This is an addendum to the note of Dr. Violet Heredia. Ms. Simms is a 71-year-old white female patient with significant renal insufficiency, but not curren tly on hemodialysis. She presented fluid overloaded with possible heart failure exacerbated by her e nd-stage renal disease. She was assessed for shunt and is now undergoing hemodialysis. She is breat theresa much easier. Her chest x-ray reveals cardiomegaly and she may have new onset heart failure, so we have ordered an echo and consider Cardiology consultation as well as treatment pending the results of the echo.
--- NOTE | 2017-04-16 17:04 | PRG ---
DATE OF SERVICE: 04/16/2017 Lena Simms is doing well today. She has a good thrill and bruit in her right Adam fistula. Sh e should avoid blood draws and IV access in the right arm and avoid blood draws, IV access above the left wrist. She should exercise in the right arm. She should follow up with me in the office in 4-6 weeks. Remove central line prior to discharge. At this point, I will see her as needed this hospit alization. Please call if needed.
--- NOTE | 2017-04-16 21:40 | PDOC.FM ---
- Subjective Subjective: Patient is seen in dialysis today. Patient reports much improvement of SOB and volume overload since initiation of dialysis. Patient reports no pain from fistula creation yesterday. Reports chronic bladder prolapse. Patient is unable to get repair due to anemia. - Objective MAR Reviewed: Yes Vital Signs & Weight: Vital Signs (12 hours) Temp Pulse Pulse Pulse Resp BP BP 04/16/17 15:45 04/16/17 15:20 99.2 F 77 18 04/16/17 11:40 82 83 143/65 H 04/16/17 11:35 04/16/17 11:25 98.6 F 78 17 04/16/17 09:55 71 198/60 H BP BP Pulse Ox Pulse Ox Pulse Ox 04/16/17 15:45 94 L 04/16/17 15:20 130/60 94 L 04/16/17 11:40 124/56 L 94 L 98 04/16/17 11:35 92 L 04/16/17 11:25 114/66 95 04/16/17 09:55 Weight Weight 78.381 kg I&O: 04/15/17 04/16/17 04/17/17 06:59 06:59 06:59 Intake Total 490 660 458 Output Total 1200 1400 2300 Balance -651 -663 -5483 Result Diagrams: 04/14/17 18:04 04/15/17 04:30 Phys Exam - Physical Examination Constitutional: NAD HEENT: PERRLA, moist MMs Respiratory: no wheezing, no rales, clear to auscultation bilateral Cardiovascular: RRR, no significant murmur Gastrointestinal: soft, non-tender Musculoskeletal: no edema R lateral forearm with fistula incision, incision c,d,i, bruit palpable Neurological: moves all 4 limbs Psychiatric: normal affect, A&O x 3 Skin: cap refill <2 seconds Dx/Plan (1) ESRD (end stage renal disease) Code(s): N18.6 - END STAGE RENAL DISEASE Status: Acute (2) Hypertension Code(s): I10 - ESSENTIAL (PRIMARY) HYPERTENSION Status: Acute Qualifiers: Hypertension type: unspecified Qualified Code(s): I10 - Essential (primary ) hypertension (3) Hyperphosphatemia Code(s): E83.39 - OTHER DISORDERS OF PHOSPHORUS METABOLISM Status: Acute (4) Anemia in chronic kidney disease Code(s): N18.9 - CHRONIC KIDNEY DISEASE, UNSPECIFIED; D63.1 - ANEMIA IN CHRONIC KIDNEY DISEASE Status: Acute Qualifiers: Chronic kidney disease stage: on chronic dialysis Qualified Code(s): N18.6 - End stage renal disease; D63.1 - Anemia in chronic kidney disease; D63.1 - Anemia in chronic kidney disease; Z99.2 - Dependence on renal dialysis; Z99.2 - Dependence on renal dialysis; Z99.2 - Dependence on renal dialysis; Z99.2 - Dependence on renal dialysis (5) Type 2 diabetes mellitus Status: Acute Qualifiers: Diabetes mellitus complication status: with unspecified complications Diabetes mellitus superintendent marine oil terminal insulin use: with superintendent marine oil terminal use Qualified Code(s) : E11.8 - Type 2 diabetes mellitus with unspecified complications; Z79.4 - superintendent marine oil terminal (current) use of insulin; Z79.4 - superintendent marine oil terminal (current) use of insulin; Z79.4 - intermediate (current) use of insulin; Z79.4 - intermediate (current) use of insulin (6) Coronary atherosclerosis of [place] coronary artery Code(s): I25.10 - ATHSCL HEART DISEASE OF [place] CORONARY ARTERY W/O ANG PCTRS Status: Acute Qualifiers: [place] vs. transplanted heart: [place] heart Associated angina: angina presence unspecified Qualified Code(s): I25.10 - Atherosclerotic heart disease of [place] coronary artery without angina pectoris - Plan Plan: New Onset ESRD - Likely 2/2 hypertension - s/p fistula placement by Deny - HD for 1 hour yesterday and 2 hours today, patient symptomatically improved and VS stable - Plan for HD for [address] Cuello - with volume overload will evaluate cardiac function with echo, results pending HTN - stable at this time - continue home Terazosin, Isosorbide dinitrate, clonidine, and nifedipine T2DM - Patient taking 70/30 at home - Family reports patient not compliant with diabetic diet - behavioral health tech to see and give recs - Blood sugars well controlled here in the hospital, continue home regimen Hyperphosphatemia - On Renvela Anemia of Chronic Disease - Procrit injections weekly - Hg 9.7 CAD s/p CABG - daily ASA Bladder Prolapse - ureteral stent in place, will need stent removal and surgical consult for bladder prolapse outpatient
[2017-04-17 05:25] LABS: #Eosinphils 0.1 thou/uL (0.0-0.7); #Lymphocytes 0.6 thou/uL (1.20-3.40); #Monocytes 0.6 thou/uL (0.11-0.59); #Neutrophils 4.2 thou/uL (1.40-6.50); %Basophils 0.4 % (0.0-1.0); %Eosinophils 1.2 % (0.0-10.0); %Lymphocytes 11.4 % (21.0-51.0); %Monocytes 10.1 % (0.0-10.0); %Neutrophils 76.9 % (42.0-75.0); Hemoglobin 9.1 g/dL (12.0-16.0); Mean Corpuscular HGB CONC 31.9 g/dL (32.0-36.0); Mean Corpuscular Hemoglobin 30.3 pg (27.0-31.0); Mean Corpuscular Volume 94.9 fl (81.0-99.0); Mean Platelet Volume 7.4 fL (7.4-10.4); Platelet Count 111 thou/uL (130-400); RBC Distribution Width 14.4 % (11.5-14.5); Red Blood Cell (RBC) Count 3.01 mill/uL (4.20-5.40); White Blood Cell (WBC) Count 5.4 thou/uL (4.8-10.8)
[2017-04-17 05:45] LABS: Anion Gap 15 mmol/L (10-20); BUN (Urea Nitrogen) 46 mg/dL (9.8-20.1); Calc. Creatinine Clearance 13 mL/min (70-130); Calcium 8.6 mg/dL (7.8-10.44); Carbon Dioxide 28 mmol/L (23-31); Chloride 104 mmol/L (98-107); Estimated GFR-MDRD 9; Glucose 127 mg/dL (80-115); Potassium 3.6 mmol/L (3.5-5.1); Sodium 143 mmol/L (136-145)
[2017-04-17] MEDS: Isosorbide Dinitrate 20 MG TAB PO SCH ×3 (08:51→22:08)
[2017-04-17] MEDS: Sevelamer Carbonate 800 MG TAB PO SCH ×3 (08:51→17:25)
--- NOTE | 2017-04-17 09:16 | PDOC.FM ---
- Subjective Subjective: Patient is seen in dialysis this morning. Reports she feels good. Did not sleep well overnight. Patient family expressed yesterday their concern for her bladder prolapse. It was discussed that it may not be something we can work on here in this hospitalization, but that we will work on getting her follow up outpatient for possible surgical management. - Objective MAR Reviewed: Yes Vital Signs & Weight: Vital Signs (12 hours) Temp Pulse Resp BP Pulse Ox 04/17/17 07:32 72 16 190/76 H 04/17/17 04:00 97.2 F L 72 12 136/78 94 L 04/17/17 00:00 98.8 F 69 11 L 136/64 99 Weight Weight 74.843 kg I&O: 04/16/17 04/17/17 04/18/17 06:59 06:59 06:59 Intake Total 660 748 Output Total 1400 2600 Balance -0 -7352 Result Diagrams: 04/17/17 04:41 04/17/17 04:41 Phys Exam - Physical Examination Constitutional: NAD HEENT: moist MMs Respiratory: no wheezing, no rales, no rhonchi, clear to auscultation bilateral Cardiovascular: RRR, no significant murmur Gastrointestinal: soft, non-tender Musculoskeletal: no edema Psychiatric: normal affect, A&O x 3 Skin: cap refill <2 seconds Dx/Plan (1) ESRD (end stage renal disease) Code(s): N18.6 - END STAGE RENAL DISEASE Status: Acute (2) Hypertension Code(s): I10 - ESSENTIAL (PRIMARY) HYPERTENSION Status: Acute Qualifiers: Hypertension type: unspecified Qualified Code(s): I10 - Essential (primary ) hypertension (3) Hyperphosphatemia Code(s): E83.39 - OTHER DISORDERS OF PHOSPHORUS METABOLISM Status: Acute (4) Anemia in chronic kidney disease Code(s): N18.9 - CHRONIC KIDNEY DISEASE, UNSPECIFIED; D63.1 - ANEMIA IN CHRONIC KIDNEY DISEASE Status: Acute Qualifiers: Chronic kidney disease stage: on chronic dialysis Qualified Code(s): N18.6 - End stage renal disease; D63.1 - Anemia in chronic kidney disease; D63.1 - Anemia in chronic kidney disease; Z99.2 - Dependence on renal dialysis; Z99.2 - Dependence on renal dialysis; Z99.2 - Dependence on renal dialysis; Z99.2 - Dependence on renal dialysis (5) Type 2 diabetes mellitus Status: Acute Qualifiers: Diabetes mellitus complication status: with unspecified complications Diabetes mellitus meterman insulin use: with meterman use Qualified Code(s) : E11.8 - Type 2 diabetes mellitus with unspecified complications; Z79.4 - residential (current) use of insulin; Z79.4 - exterminator termite (current) use of insulin; Z79.4 - residential (current) use of insulin; Z79.4 - exterminator termite (current) use of insulin (6) Coronary atherosclerosis of [place] coronary artery Code(s): I25.10 - ATHSCL HEART DISEASE OF [place] CORONARY ARTERY W/O ANG PCTRS Status: Acute Qualifiers: [place] vs. transplanted heart: [place] heart Associated angina: angina presence unspecified Qualified Code(s): I25.10 - Atherosclerotic heart disease of [place] coronary artery without angina pectoris - Plan Plan: New Onset ESRD - Likely 2/2 hypertension - s/p fistula placement by Deny - Patient symptomatically improved and VS stable - Plan for HD for [address] Cuello then build up to 4h tomorrow - with volume overload will evaluate cardiac function with echo, results pending HTN - stable at this time with - continue home Terazosin, Isosorbide dinitrate, clonidine, and nifedipine T2DM - Patient taking 70/30 at home - Family reports patient not compliant with diabetic diet - biblical languages professor to see and give recs - Blood sugars well controlled here in the hospital, continue home regimen Hyperphosphatemia - On Renvela Anemia of Chronic Disease - Procrit injections weekly - Hg 9.7 CAD s/p CABG - daily ASA Bladder Prolapse - ureteral stent in place, will need stent removal and surgical consult for bladder prolapse outpatient
[2017-04-17] MEDS: NIFEdipine XL 90 MG TAB PO SCH (10:31)
[2017-04-17] MEDS: cloNIDine 0.1 MG TAB PO SCH ×2 (10:32→22:07)
[2017-04-17] MEDS: Aspirin 81 mg Enteric Coated Tablet PO SCH (10:33)
--- NOTE | 2017-04-17 11:46 | PRG ---
DATE OF SERVICE: 04/17/2017 SUBJECTIVE: Ms. Simms is a 71-year-old white female with chronic renal failure secondary to presume d hypertensive nephropathy and was admitted for initiation of dialysis. She is undergoing dialysis a t the present time at the bedside. Earlier she had some cramping. For that reason, we slowed down o n the ultrafiltration. I decided also to maintain on magnesium oxide 400 mg tablet once a day. The patient denies any chest pain or shortness of breath. PHYSICAL EXAMINATION: VITAL SIGNS: Blood pressure is ranging from 136/64-190/76, heart rate 72, respiratory rate 12, pulse ox 94%, temperature 97.2. GENERAL: Awake, alert, comfortable, not in distress. SKIN: Adequate turgor. HEENT: Pinkish conjunctivae, anicteric sclerae. NECK: No neck mass, no carotid bruits, no JVD. CHEST: No deformities. LUNGS: Clear breath sounds. No wheezing, no crackles. HEART: Normal sinus rhythm. No murmur, no gallops, no rubs. ABDOMEN: Globular, soft, nontender, no masses. EXTREMITIES: Trace edema. MEDICATIONS: 04/17/2017 was reviewed. LABORATORY DATA: 04/17/2017; white count 5.4, hemoglobin 9.1, sodium 143, potassium 3.6, chloride 10 4, carbon dioxide 28, BUN 46, creatinine 4.74, glucose 127, calcium 8.6. ASSESSMENT AND PLAN: 1. Chronic renal failure/end-stage renal disease, undergoing hemodialysis. Fluid removal only as to lerated. Due to the cramping, I have decided to decrease ultrafiltration with this patient. She is tolerating said treatment. The plan is to do a 3-hour hemodialysis and in the a.m., we will do a 3.5 -hour hemodialysis with this patient. 2. Anemia. Started on weekly Epogen. 3. Hyperphosphatemia. The patient has been started on Renvela 800 mg 1 tablet t.i.d. with meals. 4. Hypertension. Continue current blood pressure meds. Agree with current management.
[2017-04-17] MEDS ORDERED: Magnesium Oxide 400 MG TAB PO SCH (12:00)
--- NOTE | 2017-04-17 13:26 | ADD-PRG ---
DATE OF SERVICE: 04/17/2017 This is an addendum to the note of Dr. Violet Heredia. Ms. Simms is looking and feeling much better. She has lost a great deal of fluid and her breathing is much better. She is in attendance at dialysis 3 times per week. She will be discharged after scott lysis tomorrow if possible to continue this as an outpatient.
[2017-04-17] MEDS ORDERED: Heparin 10,000 UNITS/ 10 ML VIAL ONE (13:50)
[2017-04-17] MEDS: Insulin NPH/Reg Insulin Hm 300 UNITS/3 ML VIAL SC SCH ×2 (20:00→22:09)
[2017-04-17] MEDS: Terazosin HCl 1 MG CAP PO SCH (22:08)
[2017-04-18 05:59] LABS: #Eosinphils 0.1 thou/uL (0.0-0.7); #Lymphocytes 0.9 thou/uL (1.20-3.40); #Monocytes 0.7 thou/uL (0.11-0.59); #Neutrophils 3.8 thou/uL (1.40-6.50); %Basophils 0.2 % (0.0-1.0); %Eosinophils 2.1 % (0.0-10.0); %Lymphocytes 16.6 % (21.0-51.0); %Monocytes 12.8 % (0.0-10.0); %Neutrophils 68.3 % (42.0-75.0); Hemoglobin 9.5 g/dL (12.0-16.0); Mean Corpuscular HGB CONC 31.7 g/dL (32.0-36.0); Mean Corpuscular Hemoglobin 29.8 pg (27.0-31.0); Mean Corpuscular Volume 94.1 fl (81.0-99.0); Mean Platelet Volume 7.7 fL (7.4-10.4); Platelet Count 132 thou/uL (130-400); RBC Distribution Width 14.4 % (11.5-14.5); Red Blood Cell (RBC) Count 3.19 mill/uL (4.20-5.40); White Blood Cell (WBC) Count 5.5 thou/uL (4.8-10.8)
[2017-04-18 06:18] LABS: Anion Gap 16 mmol/L (10-20); BUN (Urea Nitrogen) 26 mg/dL (9.8-20.1); Calc. Creatinine Clearance 16 mL/min (70-130); Calcium 8.3 mg/dL (7.8-10.44); Carbon Dioxide 28 mmol/L (23-31); Chloride 99 mmol/L (98-107); Estimated GFR-MDRD 11; Glucose 116 mg/dL (80-115); Potassium 3.9 mmol/L (3.5-5.1); Sodium 139 mmol/L (136-145)
--- NOTE | 2017-04-18 07:45 | PDOC.FM ---
- Subjective Subjective: CC: None offered HPI: Patient states she is feeling well. States she has a chair arranged but the center is closed on Thursday. Informed her we would await Dr. Cuello's recommendations before d/c and plan was for additional HD today. - Objective MAR Reviewed: Yes Vital Signs & Weight: Vital Signs (12 hours) Temp Pulse Resp BP BP Pulse Ox 04/18/17 03:47 99.1 F 65 18 160/77 H 98 04/17/17 22:07 157/70 H Weight Weight 72.802 kg I&O: 04/17/17 04/18/17 04/19/17 06:59 06:59 06:59 Intake Total 748 928 Output Total 2600 2300 Balance -1852 -1372 Result Diagrams: 04/18/17 04:49 04/18/17 04:49 EKG Reviewed by me: Yes (SR rate 60s) <Zafar Pulliam - Last Filed: 04/18/17 09:09> - Objective Vital Signs & Weight: Vital Signs (12 hours) Temp Pulse Resp BP Pulse Ox 04/18/17 03:47 99.1 F 65 18 160/77 H 98 Weight Weight 72.802 kg I&O: 04/17/17 04/18/17 04/19/17 06:59 06:59 06:59 Intake Total 748 928 Output Total 2600 2300 Balance -1852 -1372 Result Diagrams: 04/18/17 04:49 04/18/17 04:49 <Morris Sanderson - Last Filed: 04/18/17 12:45> Phys Exam - Physical Examination Constitutional: NAD HEENT: moist MMs, sclera anicteric left IJ central line. R tunneled IJ. no signs of infection Respiratory: no wheezing, clear to auscultation bilateral Cardiovascular: RRR, no significant murmur Gastrointestinal: soft, non-tender Musculoskeletal: edema present (trace) palpable pulse in R wrist fistula Neurological: non-focal, moves all 4 limbs Psychiatric: normal affect, A&O x 3 <Zafar Pulliam - Last Filed: 04/18/17 09:09> Dx/Plan (1) ESRD (end stage renal disease) Code(s): N18.6 - END STAGE RENAL DISEASE Status: Acute Plan: New onset. S/P fistula and R. IJ placement - HD per Dr. Cuello - Has outpatient HD arranged but need to verify plan to accommodate for the holiday on thursday. (2) Anemia in chronic kidney disease Code(s): N18.9 - CHRONIC KIDNEY DISEASE, UNSPECIFIED; D63.1 - ANEMIA IN CHRONIC KIDNEY DISEASE Status: Acute QualifierTitle: Chronic kidney disease stage: on chronic dialysis Qualified Code(s): N18.6 - End stage renal disease; D63.1 - Anemia in chronic kidney disease; D63.1 - Anemia in chronic kidney disease; Z99.2 - Dependence on renal dialysis; Z99.2 - Dependence on renal dialysis; Z99.2 - Dependence on renal dialysis; Z99.2 - Dependence on renal dialysis Plan: Stable. Continue epogen. - d/c daily CBCs (3) Hypertension Code(s): I10 - ESSENTIAL (PRIMARY) HYPERTENSION Status: Acute QualifierTitle: Hypertension type: unspecified Qualified Code(s): I10 - Essential (primary) hypertension Plan: Remains elevated. Will monitor BP as she received HD. Can continue to titrate outpatient. (4) Type 2 diabetes mellitus Status: Acute QualifierTitle: Diabetes mellitus complication status: with kidney complications Diabetes mellitus complication detail: with chronic kidney disease Diabetes mellitus terminal operations manager insulin use: with terminal operations manager use Chronic kidney disease stage: on chronic dialysis Qualified Code(s): E11.22 - Type 2 diabetes mellitus with diabetic chronic kidney disease; N18.6 - End stage renal disease; Z99.2 - Dependence on renal dialysis; Z99.2 - Dependence on renal dialysis; Z99.2 - Dependence on renal dialysis; N18.6 - End stage renal disease ; N18.6 - End stage renal disease; N18.6 - End stage renal disease; Z79.4 - terminal supervisor (current) use of insulin; Z79.4 - terminal supervisor (current) use of insulin; Z79.4 - correction (current) use of insulin; Z79.4 - terminal supervisor (current) use of insulin; Z99.2 - Dependence on renal dialysis Plan: Blood glucose in 110s to 130s. - continue current regimen. <Zafar Pulliam - Last Filed: 04/18/17 09:09> Attending Addendum - Attending Addendum I personally evaluated the patient in Dialysis and discussed the management with Dr. Pulliam. I agree with the History, Examination, Assessment and Plan documented above with any addition or exceptions noted below. She feels well and is in good spirits and ready to go home as soon as arrangements can be made to start outpatient HD. <Morris Sanderson - Last Filed: 04/18/17 12:45>
[2017-04-18] MEDS ORDERED: READ PPD TEST SITE PO SCH (09:00)
--- NOTE | 2017-04-18 10:11 | PRG ---
DATE OF SERVICE: 04/18/2017 SUBJECTIVE: Ms. Simms is a 71-year-old white female with chronic renal failure who was admitted for uremia. She has been undergoing dialysis. She has been tolerating the said treatment except for oc casional cramping. I am currently at the dialysis beside the patient supervising her hemodialysis. My plan is to do a 3.5-hour dialysis with minimal fluid removal. The patient is feeling well overall . She voices no new complaints. She denies any chest pain or shortness of breath. OBJECTIVE: VITAL SIGNS: Blood pressure 160/77, heart rate 65, respiratory rate 18, temperature 99.1, pulse ox 9 8%. GENERAL: Noted to be awake, comfortable, not in distress. SKIN: Adequate turgor. HEENT: Slightly pale conjunctivae, anicteric sclerae. NECK: No neck mass, no carotid bruits, no JVD. CHEST: No deformities. LUNGS: Clear breath sounds. No wheezing, no crackles. HEART: Normal sinus rhythm. No murmur, no gallops, no rubs. ABDOMEN: Globular, soft, nontender, no masses. EXTREMITIES: No edema, no deformities. MEDICATIONS: On 04/18/2017 reviewed. LABORATORIES: On 04/18/2017, white count 5.5, hemoglobin 9.5, hematocrit 30. Sodium 139, potassium 3.9, chloride 99, carbon dioxide 28, BUN 26, creatinine 3.91, glucose 116, calcium 8.3. Magnesium is 2.1. ASSESSMENT AND PLAN: 1. Chronic renal failure/end-stage renal disease. The patient currently on hemodialysis. Attempt t o do a 3.5-hour hemodialysis with minimal fluid removal due to the cramping yesterday. No changes wi th biochemical components of the dialysis at the present time. 2. Anemia. We will maintain maintenance Epogen. 3. Hypertension. Continue current blood pressure medications. We are currently awaiting outpatient dialysis placement with the patient.
[2017-04-18] MEDS: Sevelamer Carbonate 800 MG TAB PO SCH ×3 (10:40→17:45)
[2017-04-18] MEDS: Isosorbide Dinitrate 20 MG TAB PO SCH ×4 (10:40→21:39)
[2017-04-18] MEDS: NIFEdipine XL 90 MG TAB PO SCH (10:52)
[2017-04-18] MEDS: Magnesium Oxide 400 MG TAB PO SCH (10:52)
[2017-04-18] MEDS: cloNIDine 0.1 MG TAB PO SCH ×2 (10:53→21:38)
[2017-04-18] MEDS: Insulin NPH/Reg Insulin Hm 300 UNITS/3 ML VIAL SC SCH ×2 (14:29→21:38)
[2017-04-18] MEDS: Aspirin 81 mg Enteric Coated Tablet PO SCH (14:30)
[2017-04-18] MEDS: Acetaminophen 325 MG TAB PO PRN (15:25)
[2017-04-18] MEDS ORDERED: Heparin 10,000 UNITS/ 10 ML VIAL ONE (20:00)
[2017-04-18] MEDS: Terazosin HCl 1 MG CAP PO SCH (21:41)
--- NOTE | 2017-04-19 07:39 | PDOC.FM ---
Addendum entered and electronically signed by Zafar Pulliam MD 04/19/17 11:39 : Patient has outpatient HD chair and is scheduled for first treatment on 04/22/17. Original Note: - Subjective Subjective: CC: Tolerated HD well HPI: states she had minimal cramping with HD that was resolved with Mg supplementation. No other concerns. - Objective MAR Reviewed: Yes Vital Signs & Weight: Vital Signs (12 hours) Temp Pulse Resp BP Pulse Ox 04/19/17 05:24 95 04/19/17 04:00 98.8 F 75 20 175/74 H 96 Weight Weight 70.216 kg I&O: 04/18/17 04/19/17 04/20/17 06:59 06:59 06:59 Intake Total 928 750 Output Total 2300 420 Balance -1372 330 Result Diagrams: 04/18/17 04:49 04/18/17 04:49 EKG Reviewed by me: Yes (SR rate 70s ) <Zafar Pulliam - Last Filed: 04/19/17 07:37> - Objective Vital Signs & Weight: Vital Signs (12 hours) Temp Pulse Pulse Pulse Resp BP BP 04/19/17 11:40 99.2 F 70 20 04/19/17 09:10 70 77 146/65 H 04/19/17 08:51 190/75 H 04/19/17 08:45 190/75 H 04/19/17 07:50 96.4 F L 71 16 04/19/17 05:24 04/19/17 04:00 98.8 F 75 20 BP BP Pulse Ox Pulse Ox Pulse Ox 04/19/17 11:40 179/75 H 95 04/19/17 09:10 161/69 H 96 94 L 04/19/17 08:51 04/19/17 08:45 04/19/17 07:50 190/75 H 94 L 04/19/17 05:24 95 04/19/17 04:00 175/74 H 96 Weight Weight 70.216 kg I&O: 04/18/17 04/19/17 04/20/17 06:59 06:59 06:59 Intake Total 928 750 Output Total 2300 420 Balance -1372 330 Result Diagrams: 04/18/17 04:49 04/18/17 04:49 <Morris Sanderson - Last Filed: 04/19/17 15:41> Phys Exam - Physical Examination Constitutional: NAD HEENT: moist MMs, sclera anicteric Neck: supple no erythema around left IJ. Minimal erythema round right tunneled IJ insert Respiratory: no wheezing, clear to auscultation bilateral Cardiovascular: RRR 2/6 systolic murmur Gastrointestinal: soft Musculoskeletal: no edema Neurological: non-focal, moves all 4 limbs Psychiatric: normal affect, A&O x 3 <Zafar Pulliam - Last Filed: 04/19/17 07:37> Dx/Plan (1) ESRD (end stage renal disease) Code(s): N18.6 - END STAGE RENAL DISEASE Status: Acute Plan: New onset. S/P fistula and R. IJ placement - HD per Dr. Cuello. appears to be tolerating well - per Dr. Cuello, still awaiting outpatient chair. (2) Anemia in chronic kidney disease Code(s): N18.9 - CHRONIC KIDNEY DISEASE, UNSPECIFIED; D63.1 - ANEMIA IN CHRONIC KIDNEY DISEASE Status: Acute QualifierTitle: Chronic kidney disease stage: on chronic dialysis Qualified Code(s): N18.6 - End stage renal disease; D63.1 - Anemia in chronic kidney disease; D63.1 - Anemia in chronic kidney disease; Z99.2 - Dependence on renal dialysis; Z99.2 - Dependence on renal dialysis; Z99.2 - Dependence on renal dialysis; Z99.2 - Dependence on renal dialysis Plan: Stable. Continue epogen. (3) Hypertension Code(s): I10 - ESSENTIAL (PRIMARY) HYPERTENSION Status: Acute QualifierTitle: Hypertension type: unspecified Qualified Code(s): I10 - Essential (primary) hypertension Plan: Remains elevated. Will monitor BP as she received HD. - increased clonidine dosing to TID (4) Type 2 diabetes mellitus Status: Acute QualifierTitle: Diabetes mellitus complication status: with kidney complications Diabetes mellitus complication detail: with chronic kidney disease Diabetes mellitus mcc insulin use: with terminal worker use Chronic kidney disease stage: on chronic dialysis Qualified Code(s): E11.22 - Type 2 diabetes mellitus with diabetic chronic kidney disease; N18.6 - End stage renal disease; Z99.2 - Dependence on renal dialysis; Z99.2 - Dependence on renal dialysis; Z99.2 - Dependence on renal dialysis; N18.6 - End stage renal disease ; N18.6 - End stage renal disease; N18.6 - End stage renal disease; Z79.4 - USP (current) use of insulin; Z79.4 - USP (current) use of insulin; Z79.4 - terminal worker (current) use of insulin; Z79.4 - USP (current) use of insulin; Z99.2 - Dependence on renal dialysis Plan: Blood glucose in 110s to 130s. - continue current regimen. <Zafar Pulliam - Last Filed: 04/19/17 07:37> Attending Addendum - Attending Addendum I personally evaluated the patient and discussed the management with Dr. Pulliam. I agree with the History, Examination, Assessment and Plan documented above with any addition or exceptions noted below. She feels well. Exam is stable as above. She will stay for inpatient HD on Thursday and then if stable be discharged to begin outpatient HD on Thursday, Apr 22. <Morris Sanderson - Last Filed: 04/19/17 15:41>
[2017-04-19] MEDS: Sevelamer Carbonate 800 MG TAB PO SCH ×3 (08:45→17:27)
[2017-04-19] MEDS: cloNIDine 0.1 MG TAB PO SCH ×3 (08:45→20:53)
[2017-04-19] MEDS: Aspirin 81 mg Enteric Coated Tablet PO SCH (08:46)
[2017-04-19] MEDS: Magnesium Oxide 400 MG TAB PO SCH (08:46)
[2017-04-19] MEDS: Isosorbide Dinitrate 20 MG TAB PO SCH ×3 (08:49→20:53)
[2017-04-19] MEDS: NIFEdipine XL 90 MG TAB PO SCH (08:51)
[2017-04-19] MEDS: Insulin NPH/Reg Insulin Hm 300 UNITS/3 ML VIAL SC SCH ×2 (08:53→20:58)
--- NOTE | 2017-04-19 11:49 | PRG ---
DATE OF SERVICE: 04/19/2017 SUBJECTIVE: Ms. Simms is a 71-year-old white female with known history of chronic renal failure, hy pertensive nephropathy, recently initiated on hemodialysis due to worsening renal dysfunction. This morning, she voices no new complaints. She denies any chest pain or shortness of breath. The p atient denies any nausea or vomiting. She is ambulating better today. PHYSICAL EXAMINATION: VITAL SIGNS: Blood pressure ranging from 175/74-190/75, heart rate 71, respiratory rate 16, and temp erature 96.4, pulse ox 94%. GENERAL: Noted to be awake, alert, sitting comfortable, not in distress. SKIN: Adequate turgor. HEENT: Slightly pale conjunctivae, anicteric sclerae. NECK: No neck mass, no carotid bruits, no JVD. CHEST: No deformities. LUNGS: Clear breath sounds. No wheezing, no crackles. HEART: Normal sinus rhythm. No murmur, no gallops, no rubs. ABDOMEN: Globular, soft, nontender. EXTREMITIES: No edema, no deformities. MEDICATIONS: 04/19/2017 was reviewed. LABORATORY DATA: 04/18/2017 - White count 5.5, hemoglobin 9.5. Sodium 139, potassium 3.9, chloride 99, carbon dioxide 28, BUN 26, creatinine 3.91, and calcium 8.3. ASSESSMENT AND PLAN: 1. Chronic renal failure for hypertensive nephropathy/end-stage renal disease - The patient initiate d on hemodialysis. My plan is to do repeat dialysis this coming Thursday. Then, we will continue this patient on Thursday, Thursday, Thursday schedule. Again, fluid removal only as tolerated. We minimize fluid removal yesterday due to the fact the patient has been having cramping episodes. 2. Hypertension. We will start losartan 25 mg tablet q.a.m. 3. Anemia - on weekly Epogen. Awaiting outpatient dialysis placement.
[2017-04-19] MEDS: Terazosin HCl 1 MG CAP PO SCH (20:53)
--- NOTE | 2017-04-20 07:44 | PDOC.FM ---
- Subjective Subjective: Ms. Simms is doing well this morning. She was in dialysis this morning. She denies any problems and any acute events overnight. - Objective MAR Reviewed: Yes Vital Signs & Weight: Vital Signs (12 hours) Temp Pulse Resp BP BP 04/20/17 04:00 72 16 168/70 H 04/19/17 20:53 152/60 H 04/19/17 20:00 99.4 F 73 16 152/60 H Weight Weight 70.76 kg I&O: 04/19/17 04/20/17 04/21/17 06:59 06:59 06:59 Intake Total 750 550 Output Total 420 650 Balance 330 -100 Result Diagrams: 04/18/17 04:49 04/18/17 04:49 Phys Exam - Physical Examination Constitutional: NAD HEENT: PERRLA, moist MMs, sclera anicteric Neck: no JVD, supple, full ROM Right tunneled IJ in place, no erythema. Left IJ in place, no erythema Respiratory: no wheezing, no rales, no rhonchi, clear to auscultation bilateral Cardiovascular: RRR 2/6 systolic murmur Gastrointestinal: soft, non-tender, no distention Musculoskeletal: no edema Neurological: non-focal, moves all 4 limbs Psychiatric: normal affect, A&O x 3 Dx/Plan (1) ESRD (end stage renal disease) Code(s): N18.6 - END STAGE RENAL DISEASE Status: Acute Plan: New onset. S/p fistula and Right IJ placement -HD per Dr. Cuello, tolerating well. -Patient has been set up with OP HD chair starting thursday for MWF HD. -Will likely be d/c'd s/p HD this morning. (2) Anemia in chronic kidney disease Code(s): N18.9 - CHRONIC KIDNEY DISEASE, UNSPECIFIED; D63.1 - ANEMIA IN CHRONIC KIDNEY DISEASE Status: Acute Qualifiers: Chronic kidney disease stage: on chronic dialysis Qualified Code(s): N18.6 - End stage renal disease; D63.1 - Anemia in chronic kidney disease; D63.1 - Anemia in chronic kidney disease; Z99.2 - Dependence on renal dialysis; Z99.2 - Dependence on renal dialysis; Z99.2 - Dependence on renal dialysis; Z99.2 - Dependence on renal dialysis Plan: Stable. Continue epogen (3) Hypertension Code(s): I10 - ESSENTIAL (PRIMARY) HYPERTENSION Status: Acute Qualifiers: Hypertension type: unspecified Qualified Code(s): I10 - Essential (primary ) hypertension Plan: 152/60 this morning. Will continue to monitor. Dose of clonidine increased to TID yesterday. (4) Type 2 diabetes mellitus Status: Acute Qualifiers: Diabetes mellitus complication status: with kidney complications Diabetes mellitus complication detail: with chronic kidney disease Diabetes mellitus chcf insulin use: with chcf use Chronic kidney disease stage: on chronic dialysis Qualified Code(s): E11.22 - Type 2 diabetes mellitus with diabetic chronic kidney disease; N18.6 - End stage renal disease; N18.6 - End stage renal disease; N18.6 - End stage renal disease; N18.6 - End stage renal disease; Z79.4 - intervention manager (current) use of insulin; Z79.4 - intervention manager (current ) use of insulin; Z79.4 - intervention manager (current) use of insulin; Z79.4 - intervention manager (current) use of insulin; Z99.2 - Dependence on renal dialysis; Z99.2 - Dependence on renal dialysis; Z99.2 - Dependence on renal dialysis; Z99.2 - Dependence on renal dialysis Plan: Continue current regimen
--- NOTE | 2017-04-20 10:33 | PRG ---
DATE OF SERVICE: 04/20/2017 RENAL MEDICINE SUBJECTIVE: Ms. Simms is a 71-year-old white female, who was initiated on dialysis due to uremic si gns and symptoms. She is currently being dialyzed at the moment. I am at the bedside supervising he r dialysis. She voices no new complaints. OBJECTIVE: VITAL SIGNS: Blood pressure is ranging from 152/60-196/85, heart rate 71, respiratory rate 16, tempe rature 99.4. GENERAL EXAM: Awake, alert, comfortable, not in distress. SKIN: Adequate turgor. HEENT: She has slightly pale conjunctivae, anicteric sclerae. NECK: No neck mass, no carotid bruits, no JVD. CHEST: No deformities. LUNGS: Clear breath sounds. No wheezing and no crackles. HEART: Normal sinus rhythm. No murmur, no gallops, no rubs. ABDOMEN: Globular, soft, nontender. No masses. EXTREMITIES: No edema and no deformities. MEDICATIONS: Medications of 04/20/2017 reviewed. LABORATORY DATA: Laboratories of 04/18/2017, hemoglobin 9.5; 04/20/2017, glucose 126; 04/18/2017, BU N 26, creatinine 3.91, potassium 3.9. ASSESSMENT AND PLAN: 1. End-stage renal disease/chronic renal failure - secondary to hypertensive nephropathy. Continue current dialytic regimen. No changes will be made with her current dialysis. Continue Thursday, , Thursday dialysis. Again fluid removal only as tolerated by the patient. 2. Anemia. Continuing weekly Epogen. 3. Continue current antihypertensive regimen. Please note the patient has been started on losartan 25 mg tab once a day. Consider discharge in the a.m. Patient has a dialysis placement.
[2017-04-20] MEDS: Sevelamer Carbonate 800 MG TAB PO SCH ×3 (10:58→17:43)
[2017-04-20] MEDS: cloNIDine 0.1 MG TAB PO SCH ×3 (10:59→22:08)
[2017-04-20] MEDS: Isosorbide Dinitrate 20 MG TAB PO SCH ×3 (10:59→22:09)
[2017-04-20] MEDS: Insulin NPH/Reg Insulin Hm 300 UNITS/3 ML VIAL SC SCH ×2 (11:11→22:10)
[2017-04-20] MEDS: NIFEdipine XL 90 MG TAB PO SCH (11:11)
[2017-04-20] MEDS: Losartan Potassium 25 MG TAB PO SCH (11:13)
[2017-04-20] MEDS: Aspirin 81 mg Enteric Coated Tablet PO SCH (11:14)
[2017-04-20] MEDS: Magnesium Oxide 400 MG TAB PO SCH (11:14)
--- NOTE | 2017-04-20 15:37 | PRG ---
DATE OF SERVICE: 04/20/2017 Dr. Cuello has elected to keep the patient for further dialysis. She is currently undergoing hemodialys is for her end-stage renal disease. Discharge will occur when Dr. Cuello is ready for discharge.
[2017-04-20] MEDS: Terazosin HCl 1 MG CAP PO SCH (22:09)
--- NOTE | 2017-04-21 06:42 | PDOC.FM ---
- Subjective Subjective: Lena Simms is doing well this morning, there were no acute events overnight. She has no complaints. States that she is ready to go home today. - Objective MAR Reviewed: Yes Vital Signs & Weight: Vital Signs (12 hours) Temp Pulse Resp BP BP Pulse Ox 04/21/17 04:00 98.0 F 68 10 L 155/70 H 91 L 04/21/17 00:55 93 L 04/21/17 00:00 98.0 F 64 18 145/65 H 93 L 04/20/17 22:08 176/72 H 04/20/17 20:45 98.0 F 68 10 L 176/72 H 95 Weight Weight 67.585 kg I&O: 04/19/17 04/20/17 04/21/17 06:59 06:59 06:59 Intake Total 750 550 558 Output Total 791 845 7277 Balance 330 100 -458 Result Diagrams: 04/18/17 04:49 04/18/17 04:49 <Martin Solis - Last Filed: 04/21/17 08:43> - Objective Vital Signs & Weight: Vital Signs (12 hours) Temp Pulse Pulse Pulse Resp BP BP 04/21/17 09:31 72 69 184/79 H 143/64 H 04/21/17 04:00 98.0 F 68 10 L 04/21/17 00:55 BP Pulse Ox Pulse Ox 04/21/17 09:31 98 04/21/17 04:00 155/70 H 91 L 04/21/17 00:55 93 L Weight Weight 67.585 kg I&O: 04/20/17 04/21/17 04/22/17 06:59 06:59 06:59 Intake Total 550 738 Output Total 650 1430 Balance -100 -542 Result Diagrams: 04/18/17 04:49 04/18/17 04:49 <Pavithra Croft - Last Filed: 04/21/17 12:42> Phys Exam - Physical Examination Constitutional: NAD HEENT: PERRLA, moist MMs Neck: no nodes, supple, full ROM Respiratory: no wheezing, no rales, no rhonchi, clear to auscultation bilateral Cardiovascular: RRR 2/6 systolic murmur Gastrointestinal: soft, non-tender Musculoskeletal: pulses present Neurological: non-focal, moves all 4 limbs Psychiatric: normal affect, A&O x 3 <Martin Solis - Last Filed: 04/21/17 08:43> Dx/Plan (1) ESRD (end stage renal disease) Code(s): N18.6 - END STAGE RENAL DISEASE Status: Acute Plan: New onset. S/p fistula and Right IJ placement -HD per Dr. Cuello, tolerating well. -Patient has been set up with OP HD chair starting thursday for MWF HD. -Dr. Cuello has cleared patient for discharge this morning (2) Anemia in chronic kidney disease Code(s): N18.9 - CHRONIC KIDNEY DISEASE, UNSPECIFIED; D63.1 - ANEMIA IN CHRONIC KIDNEY DISEASE Status: Acute QualifierTitle: Chronic kidney disease stage: on chronic dialysis Qualified Code(s): N18.6 - End stage renal disease; D63.1 - Anemia in chronic kidney disease; D63.1 - Anemia in chronic kidney disease; Z99.2 - Dependence on renal dialysis; Z99.2 - Dependence on renal dialysis; Z99.2 - Dependence on renal dialysis; Z99.2 - Dependence on renal dialysis Plan: Stable. Continue epogen Ready for d/c today (3) Hypertension Code(s): I10 - ESSENTIAL (PRIMARY) HYPERTENSION Status: Acute QualifierTitle: Hypertension type: unspecified Qualified Code(s): I10 - Essential (primary) hypertension Plan: 152/60 this morning. Will continue to monitor. Dose of clonidine increased to TID yesterday. No changes in current plan (4) Type 2 diabetes mellitus Status: Acute QualifierTitle: Diabetes mellitus complication status: with kidney complications Diabetes mellitus complication detail: with chronic kidney disease Diabetes mellitus intermediate insulin use: with intermediate use Chronic kidney disease stage: on chronic dialysis Qualified Code(s): E11.22 - Type 2 diabetes mellitus with diabetic chronic kidney disease; N18.6 - End stage renal disease; Z99.2 - Dependence on renal dialysis; Z99.2 - Dependence on renal dialysis; Z99.2 - Dependence on renal dialysis; N18.6 - End stage renal disease ; N18.6 - End stage renal disease; N18.6 - End stage renal disease; Z79.4 - parts counterman (current) use of insulin; Z79.4 - skilled nursing (current) use of insulin; Z79.4 - skilled nursing (current) use of insulin; Z79.4 - skilled nursing (current) use of insulin; Z99.2 - Dependence on renal dialysis Plan: Continue current regimen - Plan Plan: Patient to be discharged this morning <Martin Solis - Last Filed: 04/21/17 08:43> Attending Addendum - Attending Addendum I personally evaluated the patient and discussed the management with Dr. Solis. I agree with the History, Examination, Assessment and Plan documented above with any addition or exceptions noted below. The patient has been cleared by Dr. Cuello for discharge. She has dialysis set up for M,W,F. Will d/c home today. <Pavithra Croft - Last Filed: 04/21/17 12:42>
[2017-04-21] MEDS: Sevelamer Carbonate 800 MG TAB PO SCH ×2 (08:38→12:54)
[2017-04-21] MEDS: NIFEdipine XL 90 MG TAB PO SCH (09:54)
[2017-04-21] MEDS: Losartan Potassium 25 MG TAB PO SCH (09:55)
[2017-04-21] MEDS: cloNIDine 0.1 MG TAB PO SCH ×2 (09:55→15:48)
[2017-04-21] MEDS: Magnesium Oxide 400 MG TAB PO SCH (09:55)
[2017-04-21] MEDS: Aspirin 81 mg Enteric Coated Tablet PO SCH (09:55)
[2017-04-21] MEDS: Isosorbide Dinitrate 20 MG TAB PO SCH ×2 (09:55→15:49)
[2017-04-21] MEDS: Insulin NPH/Reg Insulin Hm 300 UNITS/3 ML VIAL SC SCH (10:04)
--- NOTE | 2017-04-21 11:57 | PRG ---
DATE OF SERVICE: 04/21/2017 RENAL MEDICINE SUBJECTIVE: Ms. Simms is 71-year-old white female who was admitted due to uremic signs and symptoms and progressive azotemia. She has been initiated on dialysis. She continues to do well with curren t dialysis regimen. She is now on Thursday, Thursday, Thursday hemodialysis at 3.5 hours. This morning , she voices no new complaints. Blood pressure is also slightly improved with adjustment of blood pr essure meds. No complaints of shortness of breath or chest pain. OBJECTIVE: VITAL SIGNS: Blood pressure 155/70, heart rate 68, respiratory rate is 10, pulse oximetry 91%, tempe rature 98. GENERAL: Awake, supine, comfortable, not in distress. SKIN: Adequate turgor. HEENT: She has a slightly pale conjunctiva, anicteric sclerae. NECK: No neck mass, no carotid bruits, no JVD. CHEST: No deformities. LUNGS: Clear breath sounds. No wheezing, no crackles. HEART: Normal sinus rhythm. No murmur, no gallops, no rubs. ABDOMEN: Globular, soft, nontender, no masses. EXTREMITIES: No edema or deformities. MEDICATIONS: Medications of 04/21/2017 was reviewed. LABORATORY DATA: 1. Laboratories of 04/18/2017, white count 5.5, hemoglobin 9.5. 2. On 04/21/2017, glucose 123. 3. On 04/18/2017, BUN 26, creatinine 3.91, potassium 3.9. ASSESSMENT AND PLAN: 1. End-stage renal disease/chronic renal failure - stable. Continue Thursday, Thursday, and Thursday d ialysis. Fluid removal only as tolerated. Fluid removal has been adjusted downwards with this patie nt due to cramping episodes with the dialysis sessions. 2. Hypertension. Continue current blood pressure meds. Review of her medications shows the patient was recently started on losartan. 3. Anemia, continuing weekly Epogen 7500 units subcutaneous every 7 days. Patient has dialysis plac ement. Agree with planned discharge today.
[2017-04-21 15:52] VITALS: BP 132/54; TEMP 98.4
--- NOTE | 2017-04-22 02:58 | DIS-2 ---
DATE OF ADMISSION: 04/14/2017 DATE OF DISCHARGE: 04/21/2017 RESIDENT: Martin Solis M.D. ADMITTING ATTENDING: Dr. Montse Michael. DISCHARGE ATTENDING: Dr. Pavithra Croft. CONSULTATIONS 1. On 04/15/2017, general surgery, Dr. Barclay. 2. On 04/15/2017, nephrology, Dr. Cuello. PROCEDURES: 1. Chest x-ray on 04/14/2017, impression: Cardiomegaly. 2. Echocardiogram on 04/14/2017, impression: Left ventricular ejection fraction estimated at 55%-60 %. E/A flow reversal noted suggestive of diastolic dysfunction. Left atrium moderately dilated, mod [id number] tricuspid regurgitation, moderately elevated pulmonary artery pressure. 3. Bilateral upper extremity venous duplex sonogram for vein mapping. IMPRESSION: 1. Patent vascular structures within each upper extremity with measurements as detailed in medical r ecord. 2. Procedure performed by Dr. Barclay, left IJ central line, right IJ cuffed tunnel hemodialysis cath eter, right Adam fistula calibrated to a 4-mm coronary dilator. 3. Chest x-ray on 04/15/2017, impression: No evidence for acute cardiopulmonary process. PRIMARY DIAGNOSES: New-onset congestive heart failure from chronic kidney disease stage 5. SECONDARY DIAGNOSES: 1. Chronic kidney disease, stage 5. 2. Hyperkalemia. 3. Type 2 diabetes mellitus. 4. Coronary artery disease, status post coronary artery bypass graft. 5. Hypertension. DISCHARGE MEDICATIONS: 1. Nifedipine 90 mg p.o. daily. 2. Novolin 70/30 of 20 units subcutaneous q.a.m. 3. Aspirin 81 mg p.o. daily. 4. Terazosin hydrochloride 2 mg p.o. at bedtime. 5. Isosorbide dinitrate 20 mg p.o. t.i.d. 6. Clonidine 0.1 mg p.o. b.i.d. 7. Novolin 70/30 of 10 units subcutaneous at bedtime. 8. Vitamin D3 of 2000 units p.o. daily. 9. Magnesium 500 mg p.o. daily. 10. Procrit 7500 units subcutaneous every 7 days. 11. Losartan potassium 25 mg p.o. daily. 12. Sevelamer carbonate 800 mg p.o. t.i.d. with meals. DISCONTINUED MEDICATIONS: 1. Ciprofloxacin 500 mg p.o. b.i.d. 2. Tylenol 650 mg p.o. q.4 hours p.r.n. 3. Furosemide 40 mg p.o. daily. 4. Levofloxacin 500 mg. HISTORY OF PRESENT ILLNESS AND HOSPITAL COURSE: Lena Simms is a 71-year-old female with past med ical history of coronary artery disease status post CABG 1 vessel, type 2 diabetes mellitus, hyperten rashmi, stage 5 chronic kidney disease, chronic normocytic anemia, who presented with lower extremity s welling for 1 week. She also had shortness of breath with moderate exertion and two-pillow orthopnea . The symptoms progressively worsened and she has weeping from the right lower extremity, which prom pted her to come to the ED. She also endorsed abdominal swelling over the previous few days prior to admission. The patient did not have a previous diagnosis of congestive heart failure. She was not previously on dialysis, but saw Dr. Cuello as an outpatient with Nephrology. The patient was given 40 m g of Lasix in the ED, but seemed to improve her shortness of breath and lower extremity swelling. Th e patient was admitted for new onset congestive heart failure versus volume overload from chronic kid sanaz disease stage 5. Dr. Cuello with nephrology and Dr. Barclay with general surgery was consulted. Dr. Cuello made a decision to the patient needed dialysis due to her kidney function and electrolytes. The patient preferred hemodialysis or peritoneal dialysis. Her GFR on admission was noted to be 7 mL pe r minute. General Surgery was consulted for placement of permanent dialysis catheter as well as AV f istula and central line. Dr. Cuello started Epogen 7500 units subcutaneous every week, ferrous sulfate 325 mg b.i.d., and Renvela 800 mg 1 tab t[address]i.d. with meals. Dr. Cuello noted that the chronic renal fail ure was likely secondary to presumed hypertensive nephropathy. The patient tolerated dialysis well d uring her admission and remained in stable condition. It was decided that the patient will be contin ued on Thursday, Thursday, Thursday dialysis and she was approved for hemodialysis chair as an outpatien t. Losartan was also started 25 mg tablet q.a.m. for hypertension. Dr. Cuello cleared the patient for discharge after dialysis on 04/20/2017, the patient was ready for discharge on 04/21/2017. She is fe eling much better on day of discharge and was ready to go home with plans to follow up with Dr. Cuate frias or Thursday, Thursday, Thursday hemodialysis. DISPOSITION: Guarded. DISCHARGE INSTRUCTIONS: 1. Location: Home. 2. Diet: Heart healthy, diabetic diet, renal diet. ACTIVITY: As tolerated. FOLLOWUP: Follow up with primary care provider within a week for hospital admission followup and hem odialysis was on Thursday, Thursday, Thursday with Dr. Cuello.
== END 2017-04-21 16:40 | disposition home or self-care (01) | DRG 673 ==
LOC: ERS 16:29 → 2NO 20:10
PROVIDERS: ADMIT Family Medicine; ATTEND Family Medicine
PROC: 031B0ZF Bypass Right Radial Artery to Lower Arm Vein, Open Approach (ICD-10-PCS; principal; 2017-04-15)
PROC: 02HV33Z Insertion of Infusion Device into Superior Vena Cava, Percutaneous Approach (ICD-10-PCS; 2017-04-15)
PROC: B5181ZA Fluoroscopy of Superior Vena Cava using Low Osmolar Contrast, Guidance (ICD-10-PCS; 2017-04-15)
PROC: 5A1D70Z Performance of Urinary Filtration, Intermittent, Less than 6 Hours Per Day (ICD-10-PCS; 2017-04-16)
PROC: 5A1D70Z Performance of Urinary Filtration, Intermittent, Less than 6 Hours Per Day (ICD-10-PCS; 2017-04-17)
PROC: 5A1D70Z Performance of Urinary Filtration, Intermittent, Less than 6 Hours Per Day (ICD-10-PCS; 2017-04-18)
PROC: 5A1D70Z Performance of Urinary Filtration, Intermittent, Less than 6 Hours Per Day (ICD-10-PCS; 2017-04-19)
PROC: 5A1D70Z Performance of Urinary Filtration, Intermittent, Less than 6 Hours Per Day (ICD-10-PCS; 2017-04-20)
DX: I12.0 Hypertensive chronic kidney disease with stage 5 chronic kidney disease or end stage renal disease (principal); N18.6 End stage renal disease; E83.39 Other disorders of phosphorus metabolism; E11.21 Type 2 diabetes mellitus with diabetic nephropathy; E11.22 Type 2 diabetes mellitus with diabetic chronic kidney disease; E87.5 Hyperkalemia; Z95.2 Presence of prosthetic heart valve; Z79.82 Long term (current) use of aspirin; Z95.1 Presence of aortocoronary bypass graft; Z88.0 Allergy status to penicillin; Z79.4 Long term (current) use of insulin; Z96.642 Presence of left artificial hip joint; I25.10 Atherosclerotic heart disease of native coronary artery without angina pectoris; E66.9 Obesity, unspecified; Z68.28 Body mass index [BMI] 28.0-28.9, adult; K42.9 Umbilical hernia without obstruction or gangrene; E78.5 Hyperlipidemia, unspecified; D63.1 Anemia in chronic kidney disease; N81.10 Cystocele, unspecified; Z96.0 Presence of urogenital implants
CPT/HCPCS: 36415; 36416; 71010; 80048; 80053; 82553; 83735; 83880; 83970; 84100; 84443; 84484; 85025; 86580; 86704; 86706; 86803; 87340; 90746; 90935; 93005; 93306; 93798; 93970; 96374; A4216; C1752; C1769; G0257; G0365; J0670; J1644; J1940; J1956; J2001; J2250; J2405; J2704; J2720; J3010; Q4081

== ENCOUNTER 2018-05-24 10:54 | Emergency (ER) | payer MEDICARE, OTHER ==
[2018-05-24 11:23] LABS: #Eosinphils 0.2 thou/uL (0.0-0.7); #Lymphocytes 1.9 thou/uL (1.20-3.40); #Monocytes 0.5 thou/uL (0.11-0.59); #Neutrophils 5.2 thou/uL (1.40-6.50); %Basophils 0.5 % (0.0-1.0); %Eosinophils 2.5 % (0.0-10.0); %Lymphocytes 24.3 % (21.0-51.0); %Monocytes 6.1 % (0.0-10.0); %Neutrophils 66.7 % (42.0-75.0); Hemoglobin 12.3 g/dL (12.0-16.0); Mean Corpuscular HGB CONC 34.5 g/dL (32.0-36.0); Mean Corpuscular Hemoglobin 31.7 pg (27.0-31.0); Mean Corpuscular Volume 91.8 fL (78.0-98.0); Mean Platelet Volume 7.8 fL (7.4-10.4); Platelet Count 156 thou/uL (130-400); RBC Distribution Width 13.7 % (11.5-14.5); Red Blood Cell (RBC) Count 3.87 mill/uL (4.20-5.40); White Blood Cell (WBC) Count 7.8 thou/uL (4.8-10.8)
[2018-05-24 11:29] LABS: Prothrombin Time 13.1 SEC (12.0-14.7)
[2018-05-24 11:30] LABS: PTT 30.9 SEC (22.9-36.1)
--- NOTE | 2018-05-24 11:32 | CT ---
EXAM: BRAIN CT WITHOUT IV CONTRAST: History: Stroke alert. Altered mental status as the patient showed up for dialysis. FINDINGS: Minimal motion artifact through the skull base region. There is some atrophy and chronic white matter ischemic change. No evidence for acute infarct. There is some opacification of the left mastoid barrett on. Sinuses appear clear of acute process. IMPRESSION: No significant acute intracranial process. No mass or bleed. Minimal motion artifact. Atrophy and chr onic white matter ischemic changes. Opacification left mastoid. Findings discussed with Dr. Gandhi at 11:03 a.m. Connor VARELA POS: [facility]
--- NOTE | 2018-05-24 11:34 | RAD ---
PORTABLE CHEST ONE VIEW: Date: 05-24-18 Time: 11:10 a.m. History: Stroke alert. Altered mental status. FINDINGS: Comparison made with exam of 04-15-17. There are changes of median sternotomy. The heart size is normal. The lungs are well expanded without focal areas of consolidation, pneumothorax, gino pulmonary edema or pleural effusions. IMPRESSION: No acute process. POS: [facility]
[2018-05-24 11:47] LABS: ALT (SGPT) 14 U/L (8-55); AST (SGOT) 15 U/L (5-34); Albumin 3.7 g/dL (3.4-4.8); Alkaline Phosphatase 110 U/L (40-150); Anion Gap 19 mmol/L (10-20); BUN (Urea Nitrogen) 56 mg/dL (9.8-20.1); Bilirubin, Total 0.5 mg/dL (0.2-1.2); CK (CPK) 65 U/L (29-168); Calc. Creatinine Clearance 0 mL/min (70-130); Calcium 8.7 mg/dL (7.8-10.44); Carbon Dioxide 18 mmol/L (23-31); Chloride 103 mmol/L (98-107); Estimated GFR-MDRD 9; Globulin 3.2 g/dL (2.4-3.5); Glucose 278 mg/dL (80-115); Potassium 4.2 mmol/L (3.5-5.1); Protein, Total 6.9 g/dL (6.0-8.3); Sodium 136 mmol/L (136-145)
[2018-05-24 12:08] LABS: CKMB 4.4 ng/mL (0-6.6)
[2018-05-24] MEDS ORDERED: hydrALAZINE 20 MG/ML VIAL ONE (12:21)
[2018-05-24 12:41] LABS: Bilirubin Negative (Negative); Blood, Urine Small (Negative); Clarity CLEAR (Clear); Glucose, Urine (Dipstick) 500 mg/dL (Negative); Leukocyte Negative (Negative); Nitrite Negative (Negative); Protein, Urine (Dipstick) 100 mg/dL (Neg-Trace); Specific Gravity, Urine 1.013 (1.002-1.036); Urobilinogen 0.2 mg/dL (0.2-1.0)
[2018-05-24 12:42] LABS: Bacteria/HPF None Seen HPF (None Seen); Hyaline Casts/LPF 4-6 HYALINE CAST LPF (0-3 Hyaline); Pathc Cast-AUWi Flag 1.45 (0-2.49); RBC/HPF None Seen HPF (0-3); Squamous Epithelial 0-3 HPF (0-3); WBC/HPF 0-3 HPF (0-3)
[2018-05-24] MEDS ORDERED: Ondansetron ODT 8 MG TAB ONE (13:04)
== END 2018-05-24 13:15 | disposition home or self-care (01) ==
LOC: ERS 10:54
DX: I12.0 Hypertensive chronic kidney disease with stage 5 chronic kidney disease or end stage renal disease (principal); N18.6 End stage renal disease; I25.10 Atherosclerotic heart disease of native coronary artery without angina pectoris; E11.22 Type 2 diabetes mellitus with diabetic chronic kidney disease; Z79.899 Other long term (current) drug therapy; Z79.82 Long term (current) use of aspirin
CPT/HCPCS: 70450; 71045; 80053; 81003; 81015; 82550; 82553; 84484; 85025; 85610; 85730; 86850; 86900; 86901; 93005; 94760; J0360

== ENCOUNTER 2018-05-24 17:19 | Observation (INO) | payer MEDICARE, OTHER ==
[2018-05-24] MEDS ORDERED: Ondansetron PF 4 MG/2 ML Vial ONE (17:24)
[2018-05-24 18:18] LABS: #Lymphocytes 0.6 thou/uL (1.20-3.40); #Monocytes 0.3 thou/uL (0.11-0.59); #Neutrophils 11.9 thou/uL (1.40-6.50); %Basophils 0.1 % (0.0-1.0); %Eosinophils 0.2 % (0.0-10.0); %Lymphocytes 4.4 % (21.0-51.0); %Monocytes 2.4 % (0.0-10.0); %Neutrophils 92.9 % (42.0-75.0); Hemoglobin 12.2 g/dL (12.0-16.0); Mean Corpuscular HGB CONC 34.3 g/dL (32.0-36.0); Mean Corpuscular Hemoglobin 31.2 pg (27.0-31.0); Mean Corpuscular Volume 90.8 fL (78.0-98.0); Mean Platelet Volume 7.8 fL (7.4-10.4); Platelet Count 150 thou/uL (130-400); RBC Distribution Width 13.8 % (11.5-14.5); Red Blood Cell (RBC) Count 3.91 mill/uL (4.20-5.40); White Blood Cell (WBC) Count 12.8 thou/uL (4.8-10.8)
[2018-05-24 18:39] LABS: ALT (SGPT) 13 U/L (8-55); AST (SGOT) 15 U/L (5-34); Alkaline Phosphatase 116 U/L (40-150); Anion Gap 16 mmol/L (10-20); BUN (Urea Nitrogen) 40 mg/dL (9.8-20.1); Bilirubin, Total 0.8 mg/dL (0.2-1.2); Calc. Creatinine Clearance 0 mL/min (70-130); Calcium 9.1 mg/dL (7.8-10.44); Carbon Dioxide 25 mmol/L (23-31); Chloride 100 mmol/L (98-107); Estimated GFR-MDRD 12; Globulin 3.2 g/dL (2.4-3.5); Glucose 244 mg/dL (80-115); Potassium 3.8 mmol/L (3.5-5.1); Protein, Total 7.2 g/dL (6.0-8.3); Sodium 137 mmol/L (136-145)
[2018-05-24 18:52] LABS: Troponin I 0.036 ng/mL (< 0.028)
[2018-05-24] MEDS ORDERED: hydrALAZINE 20 MG/ML VIAL ONE (19:06)
[2018-05-24] MEDS ORDERED: Metoclopramide HCl 10 MG/2 ML VIAL ONE (19:06)
[2018-05-25 01:01] VITALS: BMI 25.8
[2018-05-25] MEDS ORDERED: Ondansetron ODT 4 MG TAB SL PRN (01:31)
[2018-05-25] MEDS ORDERED: Ondansetron PF 4 MG/2 ML Vial IVP PRN (01:31)
[2018-05-25] MEDS ORDERED: Acetaminophen 325 MG TAB PO PRN (01:31)
[2018-05-25] MEDS ORDERED: hydrALAZINE 20 MG/ML VIAL SLOW IVP PRN (01:39)
[2018-05-25] MEDS ORDERED: Dextrose 50% Abboject 50 ML SYRINGE SLOW IVP PRN (01:43)
[2018-05-25] MEDS ORDERED: Dextrose 5% in Water 1,000 ML IV PRN (01:43)
[2018-05-25 02:08] LABS: #Lymphocytes 1.5 thou/uL (1.20-3.40); #Monocytes 0.6 thou/uL (0.11-0.59); #Neutrophils 6.9 thou/uL (1.40-6.50); %Basophils 0.2 % (0.0-1.0); %Eosinophils 0.4 % (0.0-10.0); %Lymphocytes 16.9 % (21.0-51.0); %Monocytes 6.3 % (0.0-10.0); %Neutrophils 76.2 % (42.0-75.0); Hemoglobin 11.5 g/dL (12.0-16.0); Mean Corpuscular HGB CONC 34.6 g/dL (32.0-36.0); Mean Corpuscular Hemoglobin 31.9 pg (27.0-31.0); Mean Corpuscular Volume 92.2 fL (78.0-98.0); Mean Platelet Volume 7.9 fL (7.4-10.4); Platelet Count 149 thou/uL (130-400); RBC Distribution Width 13.8 % (11.5-14.5); Red Blood Cell (RBC) Count 3.62 mill/uL (4.20-5.40); White Blood Cell (WBC) Count 9.1 thou/uL (4.8-10.8)
--- NOTE | 2018-05-25 02:31 | HP ---
PRIMARY CARE DOCTOR: Dr. Darren Barclay. CODE STATUS: Full code. TIME OF EVALUATION: 9:35 p.m. CHIEF COMPLAINT: Nausea and vomiting. HISTORY OF PRESENT ILLNESS: This is a 72-year-old female patient with past medical history of coronary artery disease, diabetes, hypertension, and end-stage renal disease, on hemodialysis Thursday, Thursday, and Thursday, came to the hospital after having multiple episodes of vomiting, associated with confusion, hypertension. The patient came to the ER in the morning and was given hydralazine with improvement of the symptoms, then she was discharged. In dialysis today, she started vomiting. The patient had to be picked up and bring her to the hospital for the same symptoms. The patient has some associated headache. The symptoms were severe, sudden onset. REVIEW OF SYSTEMS: CONSTITUTIONAL: No fever, no chills. The patient reported generalized weakness. RESPIRATORY: No cough, sputum production, or shortness of breath. CARDIOVASCULAR: No chest pain or palpitation. GASTROINTESTINAL: The patient has nausea and vomiting. No diarrhea or abdominal pain. CHANGE MANAGEMENT MANAGER: The patient reported headache and also feeling lightheaded. No dizziness. GENITOURINARY: No burning on urination. EXTREMITIES: No leg swelling. All other systems were reviewed and negative except for the findings mentioned above. PAST MEDICAL HISTORY: As reported in the HPI. PAST SURGICAL HISTORY: Cholecystectomy, aortic valve replacement, surgical history of coronary artery bypass graft surgery of 1 vessel, left surgery, dialysis fistula in the right arm surgery. PSYCH HISTORY: No previous psych history. FAMILY HISTORY:Reviewed and non contributory for current presentation. SOCIAL HISTORY: No alcohol use. No drug use. No smoking history. The patient lives alone at home. KNOWN ALLERGIES: To penicillin reported. MEDICATIONS: 1. Terazosin. 2. Isosorbide. 3. Clonidine. 4. Nifedipine. 5. Aspirin 81. 6. Vitamin D3. 7. Atorvastatin. 8. Renvela. PHYSICAL EXAMINATION: VITAL SIGNS: On presentation, blood pressure 221/90 with heart rate 90, respiratory rate was 18. GENERAL APPEARANCE: The patient is alert, oriented, not in acute distress. HEENT: Eyes; normal conjunctivae. Moist oral mucosa. Anicteric. No JVD. RESPIRATORY: Bilateral air entry. No rales. No wheezes. Symmetric expansion. CARDIOVASCULAR: Normal rate, regular rhythm. No murmurs. No gallops. No edema. ABDOMEN: Soft. Normal bowel sounds. MUSCULOSKELETAL: Baseline range of motion and strength. No tenderness. SKIN: Warm, intact. No pallor. No rash. No redness. Peripheral pulses are present. Capillary refill seems to be intact. NEUROLOGIC: The patient seems to be occasionally confused; however, she is able to start with a coherent conversation with some help of the family. Baseline speech. Cranial nerves seems to be intact. PSYCHIATRIC: The patient is in good mood. No anxiety. Optimal judgment. DIAGNOSTIC STUDIES: EKG was reviewed. The patient has sinus rhythm with first-degree AV block. IL 214, QRS 98, QT corrected 452, cannot rule out anterior infarct, ST and T-wave abnormality, consider lateral ischemia. Brain CT was done. The patient has no significant acute intracranial process. Chest x-ray was done. The patient has no acute process. LABORATORY DATA: The labs were done. The patient has white count 12.8, hemoglobin 12.2, MCV 90.8, platelet count 150. Chemistry; sodium 137, potassium 3.8, chloride 100, carbon dioxide 25, anion gap 16, BUN 40, creatinine 3.379 which is chronic due to end-stage renal disease, glucose 244, calcium 9.1. Total bilirubin 0.8. LFTs were normal. Troponin 0.036. ASSESSMENT AND PLAN: The patient will be placed in the hospital with following medical problems: 1. Hypertensive emergency. The patient presented with blood pressure systolic more than 220 and on presentation, the patient came with hypertensive encephalopathy showing headache and also confusion. The symptoms have improved after blood pressure has been controlled. We will reconcile home medications. The patient has been placed on clonidine p.r.n. and also hydralazine, we will monitor closely, we will adjust treatment as needed. 2. Acute metabolic encephalopathy secondary to hypertension, treatment as above. 3. End-stage renal disease, on hemodialysis. The patient will need Nephrology evaluation for dialysis inpatient. Dr. Cuello has been consulted. 4. Leukocytosis, unclear etiology. We will monitor, no evidence of any acute infection at this point. 5. Uncontrolled diabetes. The patient has blood sugar 244. We will place the patient on sliding scale and adjust and dose insulin as needed. 6. History of coronary artery disease. There is a mild elevation of troponin. We will trend, might be secondary to end-stage renal disease and also secondary to underlying hypertension. 7. Deep vein thrombosis prophylaxis. Job ID: [id number] [facility]
[2018-05-25 02:32] LABS: Troponin I 0.042 ng/mL (< 0.028)
[2018-05-25 03:02] LABS: Anion Gap 18 mmol/L (10-20); BUN (Urea Nitrogen) 46 mg/dL (9.8-20.1); Calc. Creatinine Clearance 14 mL/min (70-130); Calcium 8.7 mg/dL (7.8-10.44); Carbon Dioxide 23 mmol/L (23-31); Chloride 101 mmol/L (98-107); Estimated GFR-MDRD 10; Glucose 232 mg/dL (80-115); Sodium 138 mmol/L (136-145)
[2018-05-25] MEDS: cloNIDine 0.1 MG TAB PO PRN (03:49)
[2018-05-25 05:40] LABS: Troponin I 0.047 ng/mL (< 0.028)
[2018-05-25] MEDS: HumaLOG 300 UNITS/3 ML VIAL SC PRN ×3 (05:53→17:59)
[2018-05-25] MEDS: Sevelamer Carbonate 800 MG TAB PO SCH ×3 (08:50→17:59)
[2018-05-25] MEDS: NIFEdipine XL 90 MG TAB PO SCH (08:52)
[2018-05-25] MEDS: Losartan 25 MG TAB PO SCH (08:53)
[2018-05-25] MEDS: cloNIDine 0.1 MG TAB PO SCH ×2 (08:54→19:32)
[2018-05-25] MEDS: Enoxaparin Sodium 40 MG/0.4 ML SYRINGE SC SCH (08:55)
[2018-05-25] MEDS: Aspirin 81 mg Enteric Coated Tablet PO SCH (08:55)
[2018-05-25] MEDS: Isosorbide Dinitrate 20 MG TAB PO SCH ×3 (08:55→19:33)
--- NOTE | 2018-05-25 11:25 | CON ---
DATE OF CONSULTATION: HISTORY OF PRESENT ILLNESS: Ms. Simms is a 72-year-old white female with known history of ESRD - currently on maintenance hemodialysis and was admitted for persistent nausea and vomiting. She was initially seen at the ER brake holder yesterday and initial evaluation did not show anything significant. She was brought back to the dialysis and the nausea and vomiting persisted. The dialysis treatment was shortened at that time. She was also noted to have a labile hypertension. The patient was sent back to the ER. On arrival there, a repeat hydralazine IV injection was given. This morning, the patient tells me she is feeling better. She denies any chest pain or shortness of breath. REVIEW OF SYSTEMS: Status post headache. No currently intermittent nausea. No abdominal pain. No diarrhea. No constipation. No fever or chills. No occasional confusion. No sore throat. No diplopia. No dysuria. No urinary frequency. Appetite and energy level are fair. MEDICATIONS: Currently on; 1. Ecotrin 81 mg daily. 2. Catapres 0.1 mg p.o. b.i.d. 3. Lovenox 40 mg subcu at bedtime. 4. Humalog sliding scale. 5. Isordil 20 mg p.o. t.i.d. 6. Losartan 25 mg q.a.m. 7. Procardia XL 90 mg once a day. 8. Zofran p.r.n. 9. Hytrin 2 mg at bedtime. PAST MEDICAL HISTORY: ESRD secondary to a presumed hypertensive nephropathy, longstanding hypertension, hyperlipidemia, type 2 diabetes mellitus, history of proteinuria, and valvular heart disease. PAST SURGICAL HISTORY: Status post back surgery, status post cardiac cath, status post colonoscopy, status post CABG, status post aortic valve replacement, status post laparoscopic cholecystectomy, status post AV fistula placement, and status post cuffed hemodialysis catheter placement. SOCIAL HISTORY: The patient is , lives in [place], 2 children. 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 No history of smoking. No alcohol intake. No blood transfusion. Education, high school. Active lifestyle. ALLERGIES: PENICILLIN. TRAUMA: None. IMMUNIZATION: Up-to-date. HOSPITALIZATIONS: Please see past medical history. FAMILY HISTORY: No family history of ESRD. PHYSICAL EXAMINATION: VITAL SIGNS: Blood pressure is 160/70, heart rate 76, respiratory rate 18, temperature 98.4, and pulse ox 98%. GENERAL: Noted to be awake, alert, and comfortable, not in distress. SKIN: Adequate turgor. HEENT: Pinkish conjunctivae. Anicteric sclerae. No neck mass. No carotid bruits. No JVD. CHEST: No deformities. LUNGS: Clear breath sounds. No wheezing. No crackles. HEART: Normal sinus rhythm. No murmur. No gallops. No rubs. ABDOMEN: Globular, soft, and nontender. No masses. EXTREMITIES: No edema. No deformities. LABORATORY DATA: Laboratories of May 25, 2018; white count 9.1, hemoglobin 11.5, and hematocrit 33.4. Sodium 138, potassium 4, chloride 101, carbon dioxide 23, BUN 46, creatinine 4.28, glucose 232, and calcium 8.7. May 24, 2018, chest x-ray, no acute process. CT scan of the brain, no acute process. ASSESSMENT AND PLAN: 1. Nausea and vomiting - nonspecific etiology. Continue supportive care. Actually, this morning the nausea and vomiting are resolved. 2. Labile hypertension. Continuing current BP medications. Adjust blood pressure medications as needed. 3. End-stage renal disease, stable. No indication for any emergent hemodialysis. We will resume back her regular Thursday, Thursday, and Thursday hemodialysis in a.m. Overall, agree with current management. Job ID: [id number]
--- NOTE | 2018-05-25 13:24 | PRG ---
DATE OF SERVICE: 05/25/2018 SUBJECTIVE: The patient reports she is feeling better. Her son reports that she is back to her baseline mental status. She has no more headache and her nausea and vomiting have resolved. OBJECTIVE: VITAL SIGNS: Temperature is 97.9, pulse 72, respirations 20, O2 saturation 94% on room air, and BP 112/60. GENERAL APPEARANCE: Age-appropriate female, in no distress. She is awake, alert, oriented, pleasant, and cooperative. HEART: Systolic murmur, 2/6, right upper sternal and left lower sternal borders. LUNGS: Clear to auscultation bilaterally with good chest wall expansion and air exchange. ABDOMEN: Soft, nontender, and nondistended. She does have a periumbilical hernia with no tenderness or entrapment. EXTREMITIES: Warm and dry without edema. LABORATORY DATA: White count 9.1, hemoglobin 11.5, and platelets 149. BUN 46, creatinine 4.28, and glucose 232. Troponin 0.047. IMPRESSION AND PLAN: 1. Hypertensive encephalopathy, appears to be resolved. Blood pressure is much improved, and she appears to be back to her baseline status. Suspect I am going to keep her and monitor through her next episode of hemodialysis tomorrow. In the meantime, continue with p.r.n. antihypertensives. 2. End-stage renal disease, followed by Dr. Cuello. Dr. Cuello saw the patient this morning. We will attempt to discuss with him. 3. Diabetes mellitus. The patient's blood sugar is running a bit high. She is on sliding scale insulin. We will continue with that for now. 4. Chronic hypertension. For now, continue with her usual home medications, pending for the lability of her pressure, may need to make some changes. 5. Nausea and vomiting, suspect related to the hypertensive encephalopathy, which appears to be resolved. 6. History of coronary artery disease. Troponins are generally stable for patient with end-stage renal disease. No further intervention. Job ID: [id number]
[2018-05-25] MEDS ORDERED: Terazosin HCl 1 MG CAP PO SCH (21:00)
[2018-05-26] MEDS: cloNIDine 0.1 MG TAB PO PRN (05:17)
[2018-05-26] MEDS: HumaLOG 300 UNITS/3 ML VIAL SC PRN ×2 (05:47→12:19)
[2018-05-26] MEDS: Aspirin 81 mg Enteric Coated Tablet PO SCH (09:27)
[2018-05-26] MEDS: cloNIDine 0.1 MG TAB PO SCH (09:27)
[2018-05-26] MEDS: Enoxaparin Sodium 40 MG/0.4 ML SYRINGE SC SCH (09:27)
[2018-05-26] MEDS: Sevelamer Carbonate 800 MG TAB PO SCH ×3 (09:27→18:46)
[2018-05-26] MEDS: Isosorbide Dinitrate 20 MG TAB PO SCH ×2 (09:28→15:00)
[2018-05-26] MEDS: Losartan 25 MG TAB PO SCH (09:28)
--- NOTE | 2018-05-26 09:48 | PRG ---
DATE OF SERVICE: 05/26/2018 SUBJECTIVE: Ms. Simms is a 72-year-old white female with ESRD and was admitted for persistent nausea and vomiting and confusion. However, her confusion is much improved, and the nausea is also improved. She denies any chest pain or shortness of breath. She is scheduled for dialysis today. I have scheduled her for an afternoon session. OBJECTIVE: VITAL SIGNS: Blood pressure is 157/63, heart rate is 69, respiratory rate 16, temperature 98.1, pulse ox 90%. GENERAL: Awake, alert, comfortable, not in distress. SKIN: Adequate turgor. HEENT: She has pinkish conjunctivae. Anicteric sclerae. NECK: No neck mass. No carotid bruits. No JVD. CHEST: No deformities. LUNGS: Clear breath sounds. No wheezing. No crackles. HEART: Normal sinus rhythm. No murmurs. No gallops. No rubs. ABDOMEN: Globular, soft, nontender. No masses. EXTREMITIES: No edema. No deformities. MEDICATIONS: Medications of May 26, 2018, reviewed. LABORATORY DATA: Laboratories of May 25, 2018; white count 9.1, hemoglobin 11.1. May 26, 2018, glucose 192. May 25, 2018, BUN 46 and creatinine 4.28. ASSESSMENT AND PLAN: 1. End-stage renal disease-I have scheduled the patient for hemodialysis today. Fluid removal only as tolerated by the patient. 2. Hypertension, much improved. Agree with current BP medications. 3. Okay for discharge after dialysis. Job ID: [id number]
[2018-05-26] MEDS: NIFEdipine XL 90 MG TAB PO SCH (14:45)
[2018-05-26 19:51] VITALS: BP 132/63; TEMP 98.4
--- NOTE | 2018-05-27 14:53 | DIS ---
DATE OF ADMISSION: 05/24/2018 DATE OF DISCHARGE: 05/26/2018 DISCHARGE DIAGNOSES: 1. Hypertensive encephalopathy. 2. Nausea and vomiting. 3. End-stage renal disease on dialysis. 4. Chronic hypertension. 5. History of coronary artery disease. HISTORY: This patient is a 72-year-old female with end-stage renal disease on dialysis, followed by Dr. Cuello. The patient was experiencing significant episodes of nausea and vomiting as well as some mild confusion associated with substantial elevations in her blood pressure. This happened initially and then resolved, but recurred again while she was in dialysis and was brought to the hospital for further evaluation. The patient was noted to be significantly hypertensive with a BP of 221/90 at the time of her admission. She appeared to be mildly occasionally confused, but was generally coherent. The patient was given hydralazine and clonidine and did have some improvement in her blood pressure. HOSPITAL COURSE: The patient was continued on p.r.n. antihypertensive medications. She was seen by Dr. Cuello in consultation and continued on her dialysis regimen. Her nausea and vomiting symptoms and confusion appeared to completely resolve. I wanted to ensure that she did well through the course of dialysis that she remained, so she could complete her next scheduled dialysis run. The patient did very well through that. She had no further hypertensive episodes, no further nausea and no further confusion and she was felt to be stable for discharge. PHYSICAL EXAMINATION: On the day of discharge; VITAL SIGNS: Temperature is 98.4, pulse 65, respirations 16, O2 saturation 95% on room air, and BP is 132/63. GENERAL APPEARANCE: The patient looks excellent on dialysis. At the time of exam, she was awake and alert. HEART: Regular without murmurs. LUNGS: Clear. ABDOMEN: Benign. EXTREMITIES: Warm and dry. NEUROLOGIC: She was intact with no evidence of confusion. DISPOSITION: The patient is discharged to home. ACTIVITY: As tolerated. DIET: She will be on a renal diet. FOLLOWUP: She will follow up with Dr. Cuello and her PCP of choice. DISCHARGE MEDICATIONS: She will be on; 1. Nifedipine 90 mg p.o. daily. 2. Novolin 70/30 of 20 units q.a.m. 3. Aspirin 81 mg daily. 4. Terazosin 2 mg at bedtime. 5. Isosorbide dinitrate 20 mg t.i.d. 6. Clonidine 0.1 mg b.i.d. 7. Novolin 70/30 of 10 units subcu at bedtime. 8. Vitamin D3 of 2000 units daily. 9. Magnesium 500 mg daily. 10. Procrit 7500 units subcu every week. 11. Losartan 25 mg daily. 12. Renvela 800 mg t.i.d. with meals. DISCHARGE INSTRUCTIONS: The patient can return to the Emergency Department should she have any problems prior to the time of followup. She should continue with her usual scheduled dialysis regimen. TIME SPENT: Please note total time in discharge activities including [id number] examination of the patient was 32 minutes. Job ID: [id number]
--- NOTE | 2018-05-29 19:51 | EKG ---
Test Reason : Blood Pressure : / mmHG Vent. Rate : 092 BPM Atrial Rate : 092 BPM P-R Int : 214 ms QRS Dur : 098 ms QT Int : 366 ms P-R-T Axes : 110 002 141 degrees QTc Int : 452 ms Sinus rhythm with 1st degree A-V block Cannot rule out Anterior infarct , age undetermined Abnormal ECG Confirmed by MICKEY COOL DO ([id number]), publication editor MARIELA ROSS ([id number]) on 05/29/2018 7:50:47 PM Referred By: Confirmed By:MICKEY COOL DO
== END 2018-05-26 19:35 | disposition home or self-care (01) ==
LOC: ERS 17:19 → ERHOLD 19:19 → SURG B 05-25 01:20
PROVIDERS: ADMIT Hospitalist; ATTEND Hospitalist
DX: I16.1 Hypertensive emergency (principal); I12.0 Hypertensive chronic kidney disease with stage 5 chronic kidney disease or end stage renal disease; E11.22 Type 2 diabetes mellitus with diabetic chronic kidney disease; N18.6 End stage renal disease; G93.41 Metabolic encephalopathy; I25.10 Atherosclerotic heart disease of native coronary artery without angina pectoris; Z79.4 Long term (current) use of insulin; Z79.82 Long term (current) use of aspirin; Z79.899 Other long term (current) drug therapy; Z88.0 Allergy status to penicillin; Z95.1 Presence of aortocoronary bypass graft; Z95.2 Presence of prosthetic heart valve; Z99.2 Dependence on renal dialysis
CPT/HCPCS: 51701; 70450; 71045; 80048; 80053 ×2; 82550; 82553; 82962 ×2; 84484 ×4; 85025 ×3; 85610; 85730; 86850; 86900; 86901; 93005; 94760; 96372 ×2; 96374; 96375; 96376; 99285; G0378; 36415; 36416; 81003; 81015; A4353; J0360; J1650; J2405; J2765

== ENCOUNTER 2019-09-01 16:45 | Inpatient (IN) | payer MEDICARE, OTHER ==
[2019-09-01] MEDS ORDERED: Labetalol HCl 100 MG/20 ML VIAL ONE (17:09)
[2019-09-01] MEDS ORDERED: niCARdipine 20MG In NaCl 20 MG/200 ML BAG ONE (17:35)
--- NOTE | 2019-09-01 17:38 | RAD ---
PORTABLE CHEST ONE VIEW: 09/01/19 at 4:54 p.m. HISTORY: Altered mental status, nausea and vomiting. COMPARISON: 05/24/18. Changes of median sternotomy again seen. The heart size is normal. The lungs are well expanded withou t lobar consolidation, pneumothoraces, gino pulmonary edema or pleural effusions. IMPRESSION: No acute process. POS: FELIPEA
--- NOTE | 2019-09-01 17:41 | CT ---
CT BRAIN WITHOUT CONTRAST: 09/01/19 HISTORY: Headache. COMPARISON: 05/24/18. Changes of cortical atrophy and chronic small vessel ischemic disease. Is again seen. The ventricular size is stable and the basilar cisterns patent. There is a 7 mm focus of acute hemorrhage in the neo s to the left of midline. No midline shift or abnormal extra-axial fluid collections are seen. The [place] calvarium is intact. There is mucosal disease in the paranasal sinuses and opacification of the le ft mastoid air cells. 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 Discussed over the telephone with ER physician, Dr. Kenyon Mei at 5:24 p.m. Code CR POS: MZA
[2019-09-01 17:48] LABS: #Eosinphils 0.1 thou/uL (0.0-0.7); #Lymphocytes 0.9 thou/uL (1.20-3.40); #Monocytes 0.4 thou/uL (0.11-0.59); #Neutrophils 7.7 thou/uL (1.40-6.50); %Basophils 0.1 % (0.0-1.0); %Eosinophils 0.8 % (0.0-10.0); %Lymphocytes 9.6 % (21.0-51.0); %Monocytes 4.6 % (0.0-10.0); %Neutrophils 84.8 % (42.0-75.0); Hemoglobin 12.3 g/dL (12.0-16.0); Mean Corpuscular HGB CONC 33.5 g/dL (32.0-36.0); Mean Corpuscular Hemoglobin 31.6 pg (27.0-31.0); Mean Corpuscular Volume 94.3 fL (78.0-98.0); Mean Platelet Volume 7.5 fL (7.4-10.4); Platelet Count 178 thou/uL (130-400); RBC Distribution Width 12.9 % (11.5-14.5); Red Blood Cell (RBC) Count 3.89 mill/uL (4.20-5.40)
[2019-09-01 18:10] LABS: Acetaminophen Less than 6.0 mcg/mL (10.0-30.0); Alcohol Less than 10 mg/dL (Less than 10); Salicylate Less than 8.0 mg/dL (15.0-30.0)
[2019-09-01 18:17] LABS: ALT (SGPT) 16 U/L (8-55); AST (SGOT) 19 U/L (5-34); Alkaline Phosphatase 109 U/L (40-110); Anion Gap 17 mmol/L (10-20); BUN (Urea Nitrogen) 21 mg/dL (9.8-20.1); CK (CPK) 65 U/L (29-168); Calc. Creatinine Clearance 0 mL/min (70-130); Carbon Dioxide 30 mmol/L (23-31); Chloride 97 mmol/L (98-107); Estimated GFR-MDRD 11; Globulin 3.4 g/dL (2.4-3.5); Glucose 130 mg/dL (83-110); Lipase 47 U/L (8-78); Protein, Total 7.4 g/dL (6.0-8.3); Sodium 139 mmol/L (136-145)
[2019-09-01] MEDS ORDERED: Ondansetron PF 4 MG/2 ML Vial ONE (18:23)
[2019-09-01 18:24] LABS: Bilirubin, Total 0.6 mg/dL (0.2-1.2)
[2019-09-01 18:32] LABS: CKMB 3.8 ng/mL (0-6.6)
[2019-09-01 18:39] LABS: PTT 29.4 SEC (22.9-36.1)
[2019-09-01] MEDS ORDERED: Ondansetron ODT 4 MG TAB SL PRN (19:46)
[2019-09-01] MEDS ORDERED: Acetaminophen 325 MG TAB PO PRN (19:46)
[2019-09-01] MEDS ORDERED: HYDROcodone/Acetaminophen 5/325 mg Tablet PO PRN ×2 (19:46)
[2019-09-01] MEDS ORDERED: Ondansetron PF 4 MG/2 ML Vial IVP PRN (19:46)
[2019-09-01] MEDS ORDERED: Docusate 100 MG CAP PO PRN (19:54)
[2019-09-01] MEDS ORDERED: niCARdipine 25 MG in Sodium Chloride 0.9% 250 ML 240 ML IVPB PRN (19:54)
[2019-09-01] MEDS ORDERED: Sodium Chloride 0.9% 1,000 ML IV SCH ×2 (20:00→20:15)
[2019-09-01 20:14] VITALS: BMI 26.7
[2019-09-01] MEDS ORDERED: niCARdipine 50 MG in Sodium Chloride 0.9% 250 ML 230 ML IVPB PRN (20:30)
[2019-09-01 22:21] LABS: Troponin I 0.047 ng/mL (< 0.028)
[2019-09-02 01:00] LABS: Troponin I 0.049 ng/mL (< 0.028)
--- NOTE | 2019-09-02 02:53 | CON ---
DATE OF CONSULTATION: SERVICE: Renal Medicine. HISTORY OF PRESENT ILLNESS: Ms. Simms is a 73-year-old white female with ESRD from a presumed hypertensive nephropathy admitted for mental status change. After dialysis today, the patient was noted to be confused. Due to the confusion, the patient's children called 911 to have the patient brought to the emergency room. Of note, during this initial incident, the blood pressure was noted to be more than 200. Please note that after dialysis, her BP was noted at 188 systolic. At the ER, a CAT scan of the head was done and the patient was noted to have a small bleed at the bones. No increased intracranial pressure was noted at that time. The patient is much improved regards to her mentation. REVIEW OF SYSTEMS: Positive for confusion. No chest pain. No headache. No syncopal episode. No productive cough. No fever or chills. No nausea. No vomiting. No gross hematuria. No dysuria. No urinary frequency. No productive cough. No abdominal pain. No diplopia. MEDICATIONS: Home medications include the following; 1. Clonidine 0.2 mg p.o. b.i.d. 2. Terazosin 2 mg at bedtime. 3. Renvela 800 mg p.o. t.i.d. with meals. 4. Nifedipine 90 mg XL tablet once a day. 5. Losartan 25 mg daily. 6. Isosorbide dinitrate 20 mg p.o. t.i.d. 7. NPH insulin 70/30, 10 units at night, 20 units in the morning. 8. P.r.n. Procrit. 9. Aspirin 81 mg daily. Current hospital medications includes nicardipine drip, normal saline at 50 mL an hour. PAST MEDICAL HISTORY: 1. ESRD from a presumed hypertensive nephropathy. 2. Longstanding hypertension. 3. Status post TIA. 4. Hyperlipidemia. 5. Type 2 diabetes mellitus. 6. History of valvular heart disease. 7. History of urinary incontinence-bladder dysfunction. PAST SURGICAL HISTORY: Status post back surgery, status post cardiac cath, status post colonoscopy, status post CABG, status post aortic valve replacement, status post laparoscopic cholecystectomy, status post AV fistula placement status post cuffed dialysis catheter placement. SOCIAL HISTORY: The patient is , lives alone. Two children. 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 No history of smoking. No alcohol intake. Status post blood transfusion. Education, high school. Active lifestyle. The patient lives in [place]. ALLERGIES: PENICILLIN. TRAUMA: None. IMMUNIZATIONS: Up to date. HOSPITALIZATIONS: Please see past medical history. FAMILY HISTORY: No family history of ESRD. PHYSICAL EXAMINATION: VITAL SIGNS: Blood pressure is 156/70 with a heart rate of 70, respiratory rate 12. GENERAL: Patient is awake, alert, comfortable, not in overt distress. SKIN: Adequate turgor. HEENT: Pinkish conjunctivae. Anicteric sclerae. No neck mass. No carotid bruits. No JVD. CHEST: No deformities. LUNGS: Clear breath sounds. No wheezing. No crackles. HEART: Normal sinus rhythm. No murmur. No gallops. No rubs. ABDOMEN: Globular, soft. Nontender. No masses. EXTREMITIES: No edema. No deformities. LABORATORY DATA: Laboratories on Sep 01 2019; white count 9, hemoglobin 12.3. Sodium 139, potassium 5, chloride 97, carbon dioxide 30, BUN 21, creatinine 3.88, glucose 130, AST 19, ALT 16, and albumin 4. Troponin I 0.051. CK is 65, CK-MB 3.8, lipase is 47. DIAGNOSTIC DATA: Chest x-ray; no acute infiltrates; no CHF. CT scan of the brain shows a small focal area of acute pontine hemorrhage-7 mm focus of acute hemorrhage in the bones to the left of midline. There is no midline shift or abnormal extra-axial fluid collections. There is also finding of cortical atrophy and chronic small-vessel ischemic disease. ASSESSMENT AND PLAN: 1. Labile hypertension, much improved. I would suggest we adjust her BP medications and resume her current home medications as needed. She seems not to be tolerating her clonidine at 0.2 mg tablet b.i.d. I would suggest we start her on clonidine 0.1 mg p.o. b.i.d. Add the other BP medications depending on what her blood pressure will be in the next 24 hours. She is currently on nicardipine drip. 2. Small pontine hemorrhage, supportive care, no indication for any acute intracranial surgery. Neurosurgery is aware. 3. End-stage renal disease, stable. We will continue current Thursday, , and Thursday hemodialysis regimen. Due to the recent pontine hemorrhage, we will avoid using heparin in the next several days. Overall, prognosis remains guarded. Case discussed at length with the patient and her son, Mohsen. 4. Agree with current management. Job ID: [id number]
--- NOTE | 2019-09-02 03:24 | CON ---
DATE OF CONSULTATION: September 01, 2019 HISTORY OF PRESENT ILLNESS: Ms. Simms is a 73-year-old female, who presents to the emergency room with hypertensive crisis and altered mental status observed by her family. I saw Ms. Simms in the CCU. She stated that she had some sinus pain starting yesterday, had slowly gotten worse. She said she did not think much of it. She went to dialysis today. Later in the evening, she had nausea and vomited 2 or 3 times. She stated that she could not think of the words to say and it was a sudden onset of confusion. The family observed this altered mental status and brought her to the emergency room. She is currently resting comfortably. She has no headaches. No weakness in her upper or lower extremities. She states that she had altered mental status before when she showed up for dialysis sometime in May of last year. I reviewed the May CT of the brain and there were no masses or bleeds noted on exam. She does state that she is taking some new blood pressure medicines, but she is not sure what they are. CURRENT MEDICATIONS: 1. Aspirin 81 mg. 2. B complex 11. 3. Folic acid. 4. C-Biotic. 5. Zinc. 6. Clonidine 0.2 mg. 7. Vitamin D3 5000 international units. 8. Vitamin B12 1000 mcg. 9. Epoetin 7500 units subcu q.7 days. 10. Insulin degludec 45 units subcutaneously at night. 11. Isosorbide dinitrate 20 mg p.o. as directed. 12. Losartan 25 mg daily p.r.n. 13. Renvela 800 mg t.i.d. 14. Terazosin 2 mg at night. PAST MEDICAL HISTORY: Coronary artery disease, diabetes, hypertension, renal disease, on hemodialysis, prolapsed bladder. PAST SURGICAL HISTORY: 1. Cholecystectomy. 2. Aortic valve replacement. 3. Coronary artery bypass graft surgery. 4. Left hip surgery. 5. Dialysis fistula, right arm. Back surgery. SOCIAL HISTORY: The patient does not smoke. Denies alcohol and illicit drugs. ALLERGIES: PENICILLIN. PHYSICAL EXAMINATION: VITAL SIGNS: BP 152/64, pulse 86, respiratory rate 16, O2 saturation 97 on room air. REVIEW OF SYSTEMS: CONSTITUTIONAL: Denies fever or chills. EAR, NOSE, AND THROAT: Denies changes in vision or hearing. CARDIAC: Denies chest pain, shortness of breath, diaphoresis. PULMONARY: Denies shortness of breath, cough, hemoptysis. GI: Denies abdominal pain, nausea, vomiting, diarrhea, change in stool formation and consistency. : Denies trouble with urination, frequency of urination, bloody urine. SKIN: Denies skin rash, bruising, bleeding, skin masses. MUSCULOSKELETAL: As per history of present illness. NEUROLOGICAL: As per history of present illness. PSYCHOLOGICAL: Denies anxiety, depression, or behavior changes. PHYSICAL EXAMINATION: HEENT: Pupils are equal. Extraocular movements are intact. NECK: Soft, supple. No masses are noted. Range of motion is intact and nonpainful. NEUROLOGIC: Awake, alert, oriented x3. Memory, attention, fund of knowledge normal. Cranial nerves grossly intact. EXTREMITIES: Upper extremities, good strength in the deltoids, biceps, triceps, wrist extensions, finger extensions, finger intrinsics. Sensation equally equal bilaterally in lower extremities. Good strength in the iliopsoas, quadriceps, hamstrings, anterior tib, EHL, and gastrocnemius. There is no area of dermatomal sensory loss. Gait and station not tested. Eye response: Opens spontaneously. Verbal response: Oriented, converses. Motor response: Obeys verbal commands. LABORATORY DATA: White blood count 9, platelets 178. INR 1.0. Sodium 139. IMAGING: CT of the brain, 7 mm hemorrhage in the irwin. No midline shift. PLAN: Repeat CT of the brain tomorrow morning. If scan shows improvement or no change, we will transfer care to the Medicine Service. Supportive care, no intracranial surgery will be required. We will have her follow up in 2 to 3 weeks in our clinic and consider a MRI of the her brain. Job ID: [id number] [facility]
--- NOTE | 2019-09-02 07:16 | PRG ---
DATE OF SERVICE: 09/02/2019 I personally interviewed and examined the patient and agreed with documentation of Morris Yeung PA-C, dated 09/01/2019. Briefly, Lena Simms is a 73-year-old woman with end-stage renal disease, who came through our emergency department to the ICU yesterday due to hypertensive crisis and a CT scan of the brain showing a midbrain hemorrhage on the left side. Thankfully, her blood pressure is under control with antihypertensive drip, and she is feeling better this morning. She does not complain of diplopia. She notices the right side is a little bit incoordinating compared to the left and she is right-handed. Among the electronically recorded vital signs, I failed to find any fevers. Blood pressures have been in the 130s to 150s. Heart rate in the 70s to 80s. She is saturating 98% on room air. On neurological exam, Ms. Simms seems to have good function of her extraocular muscles. I do not see a deficit in the 3rd or 4th cranial nerve, and she has sensation on her face. The right side of her body is slightly weaker than left, but it is not as markedly as that I thought it might be. Alternating rapid motions are slower on the right, but they seem to be coordinated on the left. CT examination of the brain this morning reveals hyperdensity in the left cerebral peduncle measuring less than 1 cm in diameter. It is unchanged from yesterday. Ms. Simms has a surgically inaccessible tiny hemorrhage, that should be observed rather than operated. We will transfer her care to the Inpatient Medicine Service. A followup scan will be done through our office in 2 to 3 weeks. Eventually, we can consider an MRI scan. If the tiny cavernoma is present, I also would not recommend surgery. We can make the decision on MR imaging at her followup appointment. For now, there is no surgery to contemplate. Please call the Neurosurgery Service with any further questions. Job ID: [id number] [facility]
--- NOTE | 2019-09-02 08:01 | CT ---
PRELIMINARY REPORT/[facility]/EMERGENCY AFTER HOURS PROCEDURE History: Follow-up I[facility]. CT head without contrast. Comparison: 09/01/2019. Findings: 7 mm hyperdensity in the left paramedian irwin again noted similar to previous exam. No oth er areas of intracranial hemorrhage. No masses, mass effect or focal fluid collections. Extensive pe riventricular chronic white matter ischemic changes. Old lacunar infarcts in the right caudate head. Conner-white differentiation is otherwise maintained. Mild global volume loss. The ventricles are no t dilated. Minimal sinus mucosal thickening. Fluid in the left middle ear and mastoid air cells. Th e calvarium and overlying soft tissues are intact. Impression: 1. Stable appearance of small pontine hemorrhage. 2. Chronic senescent changes. 3. Fluid in the left middle ear and mastoid air cells. Correlate for otomastoiditis. ELECTRONICALLY SIGNED BY: Diego Iraheta MD September 02, 2019 4:12:23 AM CDT FINAL REPORT CT BRAIN WITHOUT CONTRAST: I agree with the preliminary report given by Dr. Diego Baum of [facility]. POS: LITO
[2019-09-02] MEDS: Labetalol HCl 100 MG/20 ML VIAL SLOW IVP PRN (08:38)
[2019-09-02] MEDS ORDERED: cloNIDine 0.1 MG TAB PO SCH (09:00)
[2019-09-02] MEDS ORDERED: Pantoprazole 40 MG VIAL IVP SCH (09:00)
--- NOTE | 2019-09-02 09:33 | PRG ---
DATE OF SERVICE: 09/02/2019 SUBJECTIVE: Ms. Simms is a 73-year-old white female with ESRD and was admitted for mental status change. During the initial workup, she had a CAT scan which showed a small pontine hemorrhage. Neurosurgery has evaluated this patient. Recommendation is simple observation. The repeat CT scan did not show any change in the hemorrhage and is noted to be small and stable. Blood pressure is much improved. No other complaints today. We are following this patient for maintenance hemodialysis. There is no indication for an emergent dialysis today. OBJECTIVE: VITAL SIGNS: Blood pressure 162/69, heart rate 75, respiratory rate 17, O2 saturation 98%. GENERAL: The patient is awake, alert, comfortable, not in distress. SKIN: Adequate turgor. HEENT: Pinkish conjunctivae. Anicteric sclerae. No neck mass. No carotid bruits. No JVD. CHEST: No deformities. LUNGS: Clear breath sounds. HEART: Normal sinus rhythm. No murmurs, gallops, or rubs. ABDOMEN: Globular, soft, nontender. No masses. EXTREMITIES: No edema. No deformities. NEUROLOGICAL: The patient is awake, oriented, moving all extremities. No tremors. No asterixis. MEDICATIONS: Medications of September 02, 2019, reviewed. LABORATORY DATA: Laboratories of September 01, 2019; white count 9, hemoglobin 12.3. Sodium 139, potassium 5, chloride 97, carbon dioxide 30, BUN 21, creatinine 3.88. Troponin I 0.047. ASSESSMENT AND PLAN: 1. Mental status change, clinically resolved. Much improved mentation. 2. Labile hypertension, much improved with IV nicardipine. I would suggest we resume back clonidine at a smaller dose of 0.1 mg tablet b.i.d. Add nifedipine as needed. 3. End-stage renal disease, stable. No indication for an emergent hemodialysis. We will attempt to dialyze without heparin in the next several sessions. 4. Pontine hemorrhage, stable. Neurosurgery has signed off. No surgical indication. Job ID: [id number]
[2019-09-02] MEDS ORDERED: EPOETIN ALFA-EPBX (ESRD) 4,000 UNIT/ML VIAL SC SCH (10:00)
[2019-09-02] MEDS ORDERED: Isosorbide Dinitrate 20 MG TAB PO SCH (10:15)
[2019-09-02] MEDS: Sevelamer Carbonate 800 MG TAB PO SCH ×2 (11:22→17:06)
[2019-09-02] MEDS ORDERED: cloNIDine 0.2 MG TAB PO SCH (12:00)
--- NOTE | 2019-09-02 13:43 | CON ---
DATE OF CONSULTATION: HISTORY OF PRESENT ILLNESS: Lena Simms is a 73-year-old female who has been in the hospital with altered mental status, headache, nausea and vomiting. She was found to have a pontine hemorrhage in the ICU, reason for consult. This morning, she is awake, alert, responsive, no distress. No longer nauseated. Slight headache. She is nonsmoker, nondrinker. PAST MEDICAL HISTORY: Pertinent for hypertension, end-stage renal disease, dialysis for two years, history of coronary artery disease. PAST SURGERIES: Cholecystectomy, aortic valve surgery, bypass graft surgery, left hip surgery, access. She is from [place], [place]. HOME MEDICINES: 1. Insulin. 2. Procrit. 3. Terazosin two at nighttime. 4. Renvela. 5. Cozaar 25. 6. B-complex. 7. ISMO. 8. Catapres 0.2. ALLERGIES: PENICILLIN. SOCIAL AND FAMILY HISTORY: Otherwise unremarkable. REVIEW OF SYSTEMS: Negative. PHYSICAL EXAMINATION: GENERAL: Awake, alert, and responsive. NEUROLOGIC: Intact. VITAL SIGNS: Pulse 63, blood pressure , respiratory rate 18. CHEST: No wheezing, crackles. CARDIAC: Normal S1, S2. No gallops. ABDOMEN: No masses. LABORATORY DATA: White count 9000, H and H of 12 and 36, platelet count is normal. Lytes are normal. CT brain as noted shows evidence of pontine hemorrhage. Neurosurgery feels tiny hemorrhage. IMPRESSION: 1. Pontine hemorrhage. Observation as per Neurosurgery. 2. End-stage renal disease. 3. Hypertension. PLAN: 1. Pulmonary/Critical Care will follow while in the ICU. 2. Otherwise, not much additional to add at this time. Supportive care. Job ID: [id number]
[2019-09-02] MEDS ORDERED: NIFEdipine XL 30 MG TAB PO SCH (16:00)
--- NOTE | 2019-09-02 16:09 | PDOC.HOSPP ---
- Subjective Encounter Date: 09/02/19 Encounter Time: 07:45 Subjective: awake, responds well to verbal stimuli, is fully oriented is moving all extremities she normally walks without assistive devices - Objective Vital Signs & Weight: Vital Signs (12 hours) Temp Pulse BP 09/02/19 11:49 153/55 H 09/02/19 08:38 63 162/69 H 09/02/19 08:00 99.0 F Weight Weight 166 lb 7.184 oz Most Recent Monitor Data Heart Rate from ECG 65 NIBP 159/66 NIBP BP-Mean 97 Respiration from ECG 23 SpO2 93 I&O: 09/01/19 09/02/19 09/03/19 06:59 06:59 06:59 Intake Total 735 220 Balance 735 220 Result Diagrams: 09/01/19 17:37 09/01/19 16:52 Additional Labs: Accuchecks 09/01/19 21:04 POC Glucose 192 H Hospitalist ROS - Medication Medications: Active Medications Generic Name Dose Route Start Last Admin Trade Name Freq PRN Reason Stop Dose Admin Nicardipine HCl 50 mg/ Sodium 250 mls @ 0 mls/hr 09/01/19 20:30 09/01/19 20: 00 Chloride IVPB 250 mls INF PRN Administration SBP > 140 Protocol Titrate Labetalol HCl 10 mg 09/01/19 19:54 09/02/19 08:38 Normodyne SLOW IVP 10 mg Q2H PRN Administration SBP > 140 Sevelamer Carbonate 800 mg 09/02/19 12:00 09/02/19 11:22 Renvela PO 800 mg TID-WM MARCIN Administration - Exam General Appearance: NAD, awake alert Eye: PERRL, anicteric sclera ENT: no oropharyngeal lesions, moist mucosa Neck: supple, no JVD Heart: RRR, no murmur Respiratory: no wheezes, no rales Gastrointestinal: soft, non-tender, non-distended, normal bowel sounds Extremities: no cyanosis, no edema Neurological: cranial nerve grossly intact, no focal deficits Psychiatric: normal affect, A&O x 3 Hosp A/P (1) Brainstem hemorrhage, nontraumatic Code(s): I61.3 - NONTRAUMATIC INTRACEREBRAL HEMORRHAGE IN BRAIN STEM Status: Acute (2) h/o avr Status: Chronic (3) Anemia in chronic kidney disease Code(s): N18.9 - CHRONIC KIDNEY DISEASE, UNSPECIFIED; D63.1 - ANEMIA IN CHRONIC KIDNEY DISEASE Status: Chronic Qualifiers: (4) ESRD (end stage renal disease) Code(s): N18.6 - END STAGE RENAL DISEASE Status: Chronic (5) Hypertension Code(s): I10 - ESSENTIAL (PRIMARY) HYPERTENSION Status: Chronic Qualifiers: Hypertension type: essential hypertension Qualified Code(s): I10 - Essential (primary) hypertension (6) Type 2 diabetes mellitus Status: Chronic Qualifiers: Diabetes mellitus long-term insulin use: with long-term use Diabetes mellitus complication status: with kidney complications Diabetes mellitus complication detail: with chronic kidney disease Chronic kidney disease stage : on chronic dialysis Qualified Code(s): E11.22 - Type 2 diabetes mellitus with diabetic chronic kidney disease; N18.6 - End stage renal disease; Z79.4 - exterminator helper termite (current) use of insulin; Z99.2 - Dependence on renal dialysis - Plan has small bleed in brain stem area, stable initial htn emergency resolving, may taper and dc cardene drip start clonidine, isordil, procardia xl for htn continue sevelamer, protonix, and hytrin once off cardene drip may tx to stroke unit hemo/neurostable
[2019-09-02] MEDS ORDERED: Lidocaine 4% Topical Sol 50 ML BOT TOP SCH (19:15)
[2019-09-02] MEDS: Isosorbide Dinitrate 20 MG TAB PO SCH (20:53)
[2019-09-02 22:03] LABS: HBSAg Index 0.14 S/CO (0-0.99); Hep B Surf Ag Non-Reactive S/CO (NonReactive)
[2019-09-02] MEDS: cloNIDine 0.1 MG TAB PO SCH (22:07)
[2019-09-02] MEDS: Terazosin HCl 1 MG CAP PO SCH (22:07)
[2019-09-03 04:02] LABS: #Eosinphils 0.3 thou/uL (0.0-0.7); #Lymphocytes 1.9 thou/uL (1.20-3.40); #Monocytes 0.6 thou/uL (0.11-0.59); #Neutrophils 4.5 thou/uL (1.40-6.50); %Basophils 0.5 % (0.0-1.0); %Eosinophils 4.2 % (0.0-10.0); %Lymphocytes 25.2 % (21.0-51.0); %Monocytes 8.7 % (0.0-10.0); %Neutrophils 61.4 % (42.0-75.0); Hemoglobin 10.6 g/dL (12.0-16.0); Mean Corpuscular HGB CONC 33.4 g/dL (32.0-36.0); Mean Corpuscular Hemoglobin 31.8 pg (27.0-31.0); Mean Corpuscular Volume 95.4 fL (78.0-98.0); Mean Platelet Volume 7.9 fL (7.4-10.4); Platelet Count 157 thou/uL (130-400); Red Blood Cell (RBC) Count 3.32 mill/uL (4.20-5.40); White Blood Cell (WBC) Count 7.3 thou/uL (4.8-10.8)
[2019-09-03 04:33] LABS: Anion Gap 16 mmol/L (10-20); Calc. Creatinine Clearance 10 mL/min (70-130); Carbon Dioxide 27 mmol/L (23-31); Chloride 97 mmol/L (98-107); Estimated GFR-MDRD 7; Glucose 106 mg/dL (83-110); Potassium 4.8 mmol/L (3.5-5.1); Sodium 135 mmol/L (136-145)
[2019-09-03] MEDS ORDERED: NIFEdipine XL 30 MG TAB PO SCH (09:00)
[2019-09-03] MEDS: Sevelamer Carbonate 800 MG TAB PO SCH ×3 (10:07→16:57)
[2019-09-03] MEDS: Cyanocobalamin (Vitamin B-12) 1,000 MCG TAB PO SCH (10:09)
[2019-09-03] MEDS: Isosorbide Dinitrate 20 MG TAB PO SCH ×4 (10:09→21:58)
[2019-09-03] MEDS: cloNIDine 0.1 MG TAB PO SCH ×2 (10:11→21:58)
--- NOTE | 2019-09-03 10:21 | PRG ---
DATE OF SERVICE: 09/03/2019 SUBJECTIVE: Ms. Simms is a 73-year-old white female with ESRD and on maintenance hemodialysis. She was initially admitted for mental status change. During the initial workup, the CAT scan showed a small pontine hemorrhage. A repeat CAT scan was done, which showed a stable bleed. No evidence of increased intracranial pressure. She has been evaluated by Neurosurgery and the plan is simple observation. She voices no new complaints today. Our plan is to schedule her for regular dialysis without heparin. OBJECTIVE: VITAL SIGNS: Blood pressure 133/67, heart rate 61, respiratory rate 15. GENERAL: Noted to be awake, alert, comfortable, not in overt distress. SKIN: Adequate turgor. HEENT: She has slightly pale conjunctivae. Anicteric sclerae. NECK: No neck mass. No carotid bruits. No JVD. CHEST: No deformities. LUNGS: Clear breath sounds. No wheezing. No crackles. HEART: Normal sinus rhythm. No murmur. No gallops. No rubs. ABDOMEN: Globular, soft, nontender. No masses. EXTREMITIES: No edema, no deformities. MEDICATIONS: September 03, 2019, reviewed. LABORATORY DATA: September 03, 2019, white count 7.3, hemoglobin 10.6. Sodium 135, potassium 4.8, chloride 97, carbon dioxide 20, BUN 42, creatinine 6.3, glucose 106, calcium 8.0. ASSESSMENT AND PLAN: 1. Endstage renal disease-continue current hemodialysis regimen Thursday, , and Thursday. Fluid removal only as tolerated. Due to the recent intracranial bleed, no heparin will be used. 2. Status post pontine hemorrhage-stable. Lesion is small. The patient clinically asymptomatic and neurologically stable. 3. Hypertension, much improved. Continue current BP medications. 4. Agree with current management. Job ID: [id number]
[2019-09-03] MEDS ORDERED: Dextrose 50% Abboject 50 ML SYRINGE IVP PRN (11:04)
[2019-09-03] MEDS ORDERED: Dextrose 5% in Water 1,000 ML IV PRN (11:04)
[2019-09-03] MEDS: Calcium Carbonate 500 MG ChewTAB PO SCH ×2 (11:15→16:57)
[2019-09-03] MEDS: HumaLOG 300 UNITS/3 ML VIAL SC PRN (11:17)
--- NOTE | 2019-09-03 12:05 | EKG ---
Test Reason : Blood Pressure : / mmHG Vent. Rate : 087 BPM Atrial Rate : 087 BPM P-R Int : 196 ms QRS Dur : 090 ms QT Int : 386 ms P-R-T Axes : 070 017 121 degrees QTc Int : 464 ms Normal sinus rhythm Septal infarct , age undetermined T wave abnormality, consider lateral ischemia Abnormal ECG Confirmed by MARCIAL PACE ([id number]), photograph editor AMOL CRENSHAW ([id number]) on 09/03/2019 12:05:31 PM Referred By: Confirmed By:MARCIAL Mcghee
--- NOTE | 2019-09-03 12:23 | PDOC.HOSPP ---
- Subjective Encounter Date: 09/03/19 Encounter Time: 11:10 Subjective: feels better, no new complaints - Objective Vital Signs & Weight: Vital Signs (12 hours) Temp Pulse BP Pulse Ox 09/03/19 11:24 96.6 F L 09/03/19 10:11 167/91 H 09/03/19 10:08 64 167/91 H 09/03/19 07:04 96.7 F L 09/03/19 04:00 98.8 F 94 L Weight Weight 163 lb 6 oz Most Recent Monitor Data Heart Rate from ECG 61 NIBP 133/67 NIBP BP-Mean 89 Respiration from ECG 15 SpO2 93 I&O: 09/02/19 09/03/19 09/04/19 06:59 06:59 06:59 Intake Total 735 903 Output Total 300 Balance 735 603 Result Diagrams: 09/03/19 03:25 09/03/19 03:25 Additional Labs: Accuchecks 09/03/19 10:39 POC Glucose 210 H Hospitalist ROS - Medication Medications: Active Medications Generic Name Dose Route Start Last Admin Trade Name Freq PRN Reason Stop Dose Admin Calcium Carbonate 500 mg 09/03/19 11:30 09/03/19 11:15 Tums PO 500 mg AC MARCIN Administration Cholecalciferol 5,000 units 09/03/19 09:00 09/03/19 10:09 Vitamin D3 PO 5,000 units DAILY MARCIN Administration Clonidine 0.2 mg 09/02/19 21:00 09/03/19 10:11 Catapres PO Not Given BID MARCIN Cyanocobalamin 1,000 mcg 09/03/19 09:00 09/03/19 10:09 Vitamin B-12 PO 1,000 mcg DAILY MARCIN Administration Epoetin Zackary-epbx 7,500 unit 09/02/19 10:00 09/02/19 17:07 Retacrit SC 7,500 unit Q7D MARCIN Administration Insulin Human Lispro 0 units 09/03/19 11:04 09/03/19 11:17 Humalog SC 3 unit .MILD SLIDING SCALE PRN Administration MILD SLIDING SCALE Protocol Isosorbide Dinitrate 20 mg 09/02/19 21:00 09/02/19 20:53 Isordil PO 20 mg [id number]@0900,2100 MARCIN Administration Isosorbide Dinitrate 20 mg 09/03/19 09:00 09/03/19 10:09 Isordil PO 20 mg [id number]@0900,1500 MARCIN Administration Labetalol HCl 10 mg 09/01/19 19:54 09/02/19 08:38 Normodyne SLOW IVP 10 mg Q2H PRN Administration SBP > 140 Nifedipine 30 mg 09/03/19 09:00 09/03/19 10:08 Procardia Xl PO 30 mg DAILY MARCIN Administration Pantoprazole Sodium 40 mg 09/03/19 09:00 09/03/19 10:11 Protonix PO 40 mg DAILY MARCIN Administration Sevelamer Carbonate 800 mg 09/02/19 12:00 09/03/19 11:16 Renvela PO 800 mg TID-WM MARCIN Administration Terazosin HCl 2 mg 09/02/19 21:00 09/02/19 22:07 Hytrin PO 2 mg HS MARCIN Administration - Exam General Appearance: awake alert Eye: PERRL, anicteric sclera ENT: no oropharyngeal lesions, moist mucosa Neck: supple, no JVD Heart: RRR, no murmur Respiratory: no wheezes, no rales Gastrointestinal: soft, non-tender, non-distended, normal bowel sounds Extremities: no cyanosis, no edema Neurological: cranial nerve grossly intact, no focal deficits Psychiatric: A&O x 3 Hosp A/P (1) Brainstem hemorrhage, nontraumatic Code(s): I61.3 - NONTRAUMATIC INTRACEREBRAL HEMORRHAGE IN BRAIN STEM Status: Acute (2) h/o avr Status: Chronic (3) Anemia in chronic kidney disease Code(s): N18.9 - CHRONIC KIDNEY DISEASE, UNSPECIFIED; D63.1 - ANEMIA IN CHRONIC KIDNEY DISEASE Status: Chronic Qualifiers: Chronic kidney disease stage: on chronic dialysis (4) ESRD (end stage renal disease) Code(s): N18.6 - END STAGE RENAL DISEASE Status: Chronic (5) Hypertension Code(s): I10 - ESSENTIAL (PRIMARY) HYPERTENSION Status: Chronic Qualifiers: Hypertension type: essential hypertension Qualified Code(s): I10 - Essential (primary) hypertension (6) Type 2 diabetes mellitus Status: Chronic Qualifiers: Diabetes mellitus long term care social worker insulin use: with long term care social worker use Diabetes mellitus complication status: with kidney complications Diabetes mellitus complication detail: with chronic kidney disease Chronic kidney disease stage : on chronic dialysis Qualified Code(s): E11.22 - Type 2 diabetes mellitus with diabetic chronic kidney disease; N18.6 - End stage renal disease; Z79.4 - halfway (current) use of insulin; Z99.2 - Dependence on renal dialysis - Plan has small bleed in brain stem area, stable initial htn emergency resolved on clonidine, isordil, procardia xl for htn continue sevelamer, protonix, and hytrin may tx to stroke unit PT/OT to mobilize as tolerated, dc plan based on PT eval hemo/neurostable
--- NOTE | 2019-09-03 15:41 | PRG ---
DATE OF SERVICE: 09/03/2019 SUBJECTIVE: Ms. Simms is a 73-year-old female who presented to the hospital for evaluation of severe headache. She was found at the time of CT head to have a small focal area of hemorrhage within the irwin, slightly to the left of midline. She has been admitted to the hospital and seen by the Neurosurgical Service. No emergent intervention is anticipated in the absence of clinical deterioration. Her headache resolved. She has never had any difficulty with mentation, ambulation, swallowing, speech, vision, or any other focal neurologic finding. She receives chronic dialysis and is receiving that today. She lives at home in a residence adjacent to her son who is her care provider. She denies any pulmonary symptoms today. PHYSICAL EXAMINATION: VITAL SIGNS: Blood pressure 160/68, heart rate is 60. She is afebrile. GENERAL: At the time of my assessment, she was receiving dialysis. She is awake, alert, and in no acute distress. HEENT: Shows no abnormality. Cranial nerves are intact. Oropharynx is negative. LUNGS: Clear. HEART: Regular rate and rhythm with quiet systolic murmur. ABDOMEN: Soft. There is no organomegaly. EXTREMITIES: She has no edema. NEUROLOGIC: No focal neurologic findings. LABORATORY DATA: White count today 7300 with hemoglobin of 10.6. Electrolytes consistent with her renal failure including BUN of 42 and creatinine of 6.3. IMPRESSION: 1. Pontine hemorrhagic stroke, small, and otherwise fairly asymptomatic. 2. End-stage renal disease, on maintenance hemodialysis. 3. Anemia of chronic disease, presumed secondary to renal failure. RECOMMENDATIONS: She is doing well from a medical perspective and can soon either be discharged home or to a care facility if she is felt to be a candidate for rehab. Job ID: [id number]
[2019-09-03] MEDS: Terazosin HCl 1 MG CAP PO SCH (21:58)
[2019-09-04] MEDS: Labetalol HCl 100 MG/20 ML VIAL SLOW IVP PRN ×2 (00:36→06:02)
[2019-09-04] MEDS: Calcium Carbonate 500 MG ChewTAB PO SCH ×3 (06:02→16:17)
--- NOTE | 2019-09-04 07:51 | PRG ---
DATE OF SERVICE: 09/04/2019 SERVICE: Renal Medicine. SUBJECTIVE: Ms. Simms is a 73-year-old white female, who was admitted for mental status change. During the initial evaluation, she was found to have a small pontine hemorrhage. This has stabilized. She voices no new complaints. Blood pressure has still been fluctuating. BP adjustment is being made. No other complaints. No chest pain or shortness of breath. OBJECTIVE: VITAL SIGNS: Blood pressure is 189/87, heart rate 69, respiratory rate is 16, temperature 98. GENERAL: The patient is awake, alert, and comfortable, not in overt distress. SKIN: Adequate turgor. HEENT: Pinkish conjunctivae. Anicteric sclerae. NECK: No neck mass. No carotid bruits. No JVD. CHEST: No deformities. LUNGS: Clear breath sounds. HEART: Normal sinus rhythm. No murmur. No gallops. No rubs. ABDOMEN: Globular, soft, and nontender. No masses. EXTREMITIES: No edema. No deformities. MEDICATIONS: Medications of September 04, 2019, were reviewed. LABORATORY DATA: Laboratories of September 03, 2019: White count 7.3, hemoglobin 10.6. Sodium 135, potassium 4.8, chloride 97, carbon dioxide 27, BUN 42, creatinine 6.3, calcium 8.0. ASSESSMENT AND PLAN: 1. Labile hypertension - increase nifedipine from 30 to 60 mg tablet once a day. In addition, we will start minoxidil at 2.5 mg tablet at bedtime. Continue current BP medications. 2. End-stage renal disease, stable. No indication for any emergent hemodialysis. Tolerated said dialysis yesterday. No indication for any emergent hemodialysis. Recheck basic metabolic panel and CBC in a.m. Job ID: [id number]
[2019-09-04] MEDS: Cyanocobalamin (Vitamin B-12) 1,000 MCG TAB PO SCH (09:20)
[2019-09-04] MEDS: cloNIDine 0.1 MG TAB PO SCH ×2 (09:21→20:32)
[2019-09-04] MEDS: Sevelamer Carbonate 800 MG TAB PO SCH ×3 (09:21→16:17)
[2019-09-04] MEDS: NIFEdipine XL 30 MG TAB PO SCH (09:21)
[2019-09-04] MEDS: Minoxidil 2.5 MG TAB PO SCH (09:22)
[2019-09-04] MEDS: Isosorbide Dinitrate 20 MG TAB PO SCH ×3 (09:22→20:32)
--- NOTE | 2019-09-04 14:02 | PDOC.HOSPP ---
- Subjective Encounter Date: 09/04/19 Subjective: The patient was seen and examined. She denies any headache, speech alteration, or weakness in her extremities. Nursing staff noted a large prolapse through the anterior vaginal wall likely a bladder prolapse. The patient stated that she has been dealing with this issue for a while. - Objective Vital Signs & Weight: Vital Signs (12 hours) Temp Pulse Pulse Pulse Resp BP BP 09/04/19 11:21 53 L 60 121/58 L 09/04/19 11:20 97.6 F 55 L 14 09/04/19 10:00 09/04/19 09:21 170/64 H 09/04/19 08:15 09/04/19 07:39 97.6 F 64 20 09/04/19 06:02 69 189/87 H 09/04/19 06:00 09/04/19 04:34 98 F 65 16 BP BP BP Pulse Ox 09/04/19 11:21 139/66 09/04/19 11:20 121/58 L 95 09/04/19 10:00 142/60 H 09/04/19 09:21 09/04/19 08:15 97 09/04/19 07:39 160/58 H 97 09/04/19 06:02 09/04/19 06:00 189/86 H 09/04/19 04:34 195/85 H 2 L Weight Weight 165 lb Most Recent Monitor Data Heart Rate from ECG 68 NIBP 155/74 NIBP BP-Mean 101 Respiration from ECG 18 SpO2 98 I&O: 09/03/19 09/04/19 09/05/19 06:59 06:59 06:59 Intake Total 903 480 Output Total 300 2600 Balance 603 -2120 Result Diagrams: 09/03/19 03:25 09/03/19 03:25 Additional Labs: Accuchecks 09/04/19 09/03/19 09/03/19 06:02 20:39 16:49 POC Glucose 128 H 213 H 110 Hospitalist ROS - Medication Medications: Active Medications Generic Name Dose Route Start Last Admin Trade Name Freq PRN Reason Stop Dose Admin Calcium Carbonate 500 mg 09/03/19 11:30 09/04/19 12:19 Tums PO 500 mg AC MARCIN Administration Cholecalciferol 5,000 units 09/03/19 09:00 09/04/19 09:21 Vitamin D3 PO 5,000 units DAILY MARCIN Administration Clonidine 0.2 mg 09/02/19 21:00 09/04/19 09:21 Catapres PO 0.2 mg BID MARCIN Administration Cyanocobalamin 1,000 mcg 09/03/19 09:00 09/04/19 09:20 Vitamin B-12 PO 1,000 mcg DAILY MARCIN Administration Epoetin Zackary-epbx 7,500 unit 09/02/19 10:00 09/02/19 17:07 Retacrit SC 7,500 unit Q7D MARCIN Administration Insulin Human Lispro 0 units 09/03/19 11:04 09/03/19 11:17 Humalog SC 3 unit .MILD SLIDING SCALE PRN Administration MILD SLIDING SCALE Protocol Isosorbide Dinitrate 20 mg 09/02/19 21:00 09/02/19 20:53 Isordil PO 20 mg MoWeFr@0900,2100 MARCIN Administration Isosorbide Dinitrate 20 mg 09/03/19 09:00 09/04/19 09:22 Isordil PO 20 mg SuTuThSa@0900,1500 MARCIN Administration Isosorbide Dinitrate 20 mg 09/03/19 21:00 09/03/19 21:58 Isordil PO 20 mg SuTuThSa@2100 MARCIN Administration Labetalol HCl 10 mg 09/01/19 19:54 09/04/19 06:02 Normodyne SLOW IVP 10 mg Q2H PRN Administration SBP > 140 Minoxidil 2.5 mg 09/04/19 09:00 09/04/19 09:22 Minoxidil PO 2.5 mg DAILY MARCIN Administration Nifedipine 60 mg 09/04/19 09:00 09/04/19 09:21 Procardia Xl PO 60 mg DAILY MARCIN Administration Pantoprazole Sodium 40 mg 09/03/19 09:00 09/04/19 09:21 Protonix PO 40 mg DAILY MARCIN Administration Sevelamer Carbonate 800 mg 09/02/19 12:00 09/04/19 12:19 Renvela PO 800 mg TID-WM MARCIN Administration Sodium Chloride 10 ml 09/01/19 19:54 09/04/19 00:38 Flush - Normal Saline IVF 10 ml PRN PRN Administration Saline Flush Terazosin HCl 2 mg 09/02/19 21:00 09/03/19 21:58 Hytrin PO 2 mg HS MARCIN Administration - Exam General Appearance: awake alert ENT: normocephalic atraumatic Neck: supple Heart: RRR Respiratory: normal chest expansion, no tachypnea Gastrointestinal: soft Neurological: cranial nerve grossly intact, no focal deficits Hosp A/P - Plan Hosp A/P (1) Brainstem hemorrhage, nontraumatic Code(s): I61.3 - NONTRAUMATIC INTRACEREBRAL HEMORRHAGE IN BRAIN STEM Status: Acute (2) h/o avr Status: Chronic (3) Anemia in chronic kidney disease Code(s): N18.9 - CHRONIC KIDNEY DISEASE, UNSPECIFIED; D63.1 - ANEMIA IN CHRONIC KIDNEY DISEASE Status: Chronic Qualifiers: Chronic kidney disease stage: on chronic dialysis (4) ESRD (end stage renal disease) Code(s): N18.6 - END STAGE RENAL DISEASE Status: Chronic (5) Hypertension Code(s): I10 - ESSENTIAL (PRIMARY) HYPERTENSION Status: Chronic Qualifiers: Hypertension type: essential hypertension Qualified Code(s): I10 - Essential (primary) hypertension (6) Type 2 diabetes mellitus Status: Chronic Qualifiers: Diabetes mellitus automation qa tester insulin use: with snf use Diabetes mellitus complication status: with kidney complications Diabetes mellitus complication detail: with chronic kidney disease Chronic kidney disease stage : on chronic dialysis Qualified Code(s): E11.22 - Type 2 diabetes mellitus with diabetic chronic kidney disease; N18.6 - End stage renal disease; Z79.4 - detention (current) use of insulin; Z99.2 - Dependence on renal dialysis (7) bladder prolapse through the anterior vaginal wall - Plan 09/02: She has small bleed in brain stem area, stable initial htn emergency resolved on clonidine, isordil, procardia xl for htn continue sevelamer, protonix, and hytrin may tx to stroke unit PT/OT to mobilize as tolerated, dc plan based on PT eval hemo/neurostable. 09/03: No new neurological deficits. Her blood pressure has not been well controlled. Her nifedipine has been increased from 30 to 60 mg and minoxidil has been initiated by nephrology. Consult gynecology for bladder prolapse to the anterior vaginal wall.
[2019-09-04] MEDS: HumaLOG 300 UNITS/3 ML VIAL SC PRN (17:52)
--- NOTE | 2019-09-04 19:11 | CON ---
DATE OF CONSULTATION: 09/04/2019 TIME OF SERVICE: 1730. CONSULTING PHYSICIAN: Boogie Garcia MD. REASON FOR CONSULTATION: Protruding vaginal mass. HISTORY OF PRESENT ILLNESS: Ms. Simms is a 73-year-old 2, para 2, status post hysterectomy who has a longstanding history of post hysterectomy vault prolapse. She also has urinary incontinence and has been seeing a physician in [place] for this. He has been telling her that he will not perform surgical suspension of the vagina unless she has a hemoglobin of 12. She states it is uncomfortable, and attempts at pessary placement in the past have been unsatisfactory. HEBREW CANTOR HISTORY: As noted in the HPI. No history of dysplasia or STDs. PAST MEDICAL HISTORY: Significant for end-stage renal disease; presumed hypertensive nephropathy, not on dialysis; longstanding hypertension; status post TIA; history of hyperlipidemia; type 2 diabetes; valvular heart disease; and a small stable pontine stroke noted at this admission. SURGICAL HISTORY: Includes back surgery, cardiac cath, colonoscopy, CABG, AV replacement, laparoscopic cholecystectomy, AV fistula placement, and hysterectomy. ALLERGIES: PENICILLIN. MEDICATIONS: On admission included, 1. Clonidine. 2. Terazosin. 3. Renvela. 4. Nifedipine. 5. Losartan. 6. Isordil. 7. NPH insulin. 8. Procrit. 9. Baby aspirin daily. FAMILY HISTORY: Noncontributory. REVIEW OF SYSTEMS: Noncontributory. PHYSICAL EXAMINATION: GENERAL: Pleasant white female, alert and oriented x3 this afternoon. VITAL SIGNS: Temperature 97.4, pulse 58, respirations 16, blood pressure 144/65. : Limited exam reveals an abdomen that is soft and nontender. No rebound or guarding. Her vulva is without lesions. Vagina, the patient has fourth degree post hysterectomy vault prolapse that seems to involve both anterior and posterior segment. No mass is noted on bimanual. LABORATORY DATA: Most recent hematocrit was 31% with a hemoglobin of 10. Coagulation factors were within normal limits on her admission 3 days ago. Creatinine on admission was 6.3. IMPRESSION: Complex multi-medical condition patient including heart disease, status post stroke, insulin-dependent diabetes with post hysterectomy vaginal vault prolapse and incontinence. PLAN: Discussed with the patient options. Pessary would be best ideal and may warrant attempted placement again. If not, then the patient would be a good candidate for a total colpocleisis, obliterative procedure of the vagina. The patient is not a good candidate for uterosacral ligament vaginal vault suspension or sacral colposuspension. None of these procedures would cure the patient's incontinence, but would make perineal care easier to perform. Neither pessary placement nor this procedure should be done during the hospitalization, and surgery would need to be a while afterwards. The patient will need medical clearance prior to surgery. We will see the patient in office at [facility] [place] to discuss options and consider possibly pessary fitting versus scheduling obliterative vaginal procedure. Job ID: [id number]
[2019-09-04] MEDS: Terazosin HCl 1 MG CAP PO SCH (20:31)
[2019-09-05 04:46] LABS: #Eosinphils 0.3 thou/uL (0.0-0.7); #Lymphocytes 2.3 thou/uL (1.20-3.40); #Monocytes 0.6 thou/uL (0.11-0.59); #Neutrophils 5.1 thou/uL (1.40-6.50); %Basophils 0.4 % (0.0-1.0); %Eosinophils 3.3 % (0.0-10.0); %Lymphocytes 27.4 % (21.0-51.0); %Monocytes 7.5 % (0.0-10.0); %Neutrophils 61.4 % (42.0-75.0); Hemoglobin 10.5 g/dL (12.0-16.0); Mean Corpuscular HGB CONC 33.6 g/dL (32.0-36.0); Mean Corpuscular Hemoglobin 31.8 pg (27.0-31.0); Mean Corpuscular Volume 94.6 fL (78.0-98.0); Mean Platelet Volume 7.9 fL (7.4-10.4); Platelet Count 165 thou/uL (130-400); RBC Distribution Width 13.1 % (11.5-14.5); White Blood Cell (WBC) Count 8.3 thou/uL (4.8-10.8)
[2019-09-05 05:06] LABS: Anion Gap 13 mmol/L (10-20); BUN (Urea Nitrogen) 38 mg/dL (9.8-20.1); Calc. Creatinine Clearance 9 mL/min (70-130); Calcium 8.4 mg/dL (7.8-10.44); Carbon Dioxide 28 mmol/L (23-31); Chloride 97 mmol/L (98-107); Estimated GFR-MDRD 6; Glucose 83 mg/dL (83-110); Potassium 5.2 mmol/L (3.5-5.1); Sodium 133 mmol/L (136-145)
--- NOTE | 2019-09-05 08:53 | PRG ---
DATE OF SERVICE: 09/05/2019 SUBJECTIVE: Ms. Simms is a 73-year-old white female with ESRD and followed up by the Renal Service for her maintenance hemodialysis management of her ESRD. She was initially admitted for mental status change. During the initial workup, she was found to have a small pontine hemorrhage. Her hemorrhage has remained stable. Neurosurgery has evaluated this patient and management is simple observation. Adjustment of BP medications has also been done. No new complaints today. No chest pain or shortness of breath. The patient is being considered for possible rehab placement. OBJECTIVE: VITAL SIGNS: Blood pressure 150/70, heart rate 61, respiratory rate 20, temperature 97.7, and O2 saturation 95%. GENERAL: The patient is awake, alert, supine, comfortable, not in distress. SKIN: Adequate turgor. HEENT: She has a pinkish conjunctivae. Anicteric sclerae. NECK: No neck mass. No carotid bruits. No JVD. CHEST: No deformities. LUNGS: Clear breath sounds. HEART: Normal sinus rhythm. No murmur. No gallops. No rubs. ABDOMEN: Globular, soft, and nontender. No masses. EXTREMITIES: No edema. No deformities. MEDICATIONS: Medications of September 05, 2019, were reviewed. LABORATORY DATA: Laboratories of September 05, 2019; white count 8.2, hemoglobin 10.5. Sodium 133, potassium 5.2, chloride 97, carbon dioxide 28, BUN 38, creatinine 6.64, glucose 83, and calcium 8.4. ASSESSMENT AND PLAN: 1. End-stage renal disease, stable. We will continue current hemodialysis regimen of Thursday, , and Thursday. Fluid removal only as tolerated. 2. Anemia, currently on weekly Epogen. 3. Labile hypertension, much improved. Continue current BP medications. 4. Status post small pontine hemorrhage, stable. Neurosurgery is following. Awaiting rehab placement. Job ID: [id number]
[2019-09-05] MEDS: Isosorbide Dinitrate 20 MG TAB PO SCH (09:17)
[2019-09-05] MEDS: cloNIDine 0.1 MG TAB PO SCH (09:17)
[2019-09-05] MEDS: NIFEdipine XL 30 MG TAB PO SCH (09:17)
[2019-09-05] MEDS: Minoxidil 2.5 MG TAB PO SCH (09:30)
[2019-09-05] MEDS: Cyanocobalamin (Vitamin B-12) 1,000 MCG TAB PO SCH (09:30)
[2019-09-05] MEDS: Sevelamer Carbonate 800 MG TAB PO SCH ×2 (09:30→11:59)
[2019-09-05] MEDS: Calcium Carbonate 500 MG ChewTAB PO SCH ×2 (09:30→11:59)
--- NOTE | 2019-09-05 11:09 | PRG ---
DATE OF SERVICE: 09/05/2019 SUBJECTIVE: A 73-year-old female status post pontine hemorrhage, doing well. No distress. OBJECTIVE: VITAL SIGNS: Temperature 97, pulse 60, saturations room air, blood pressure 130/63. CHEST: No wheezing, crackles. CARDIAC: Normal S1, S2. No gallops. ABDOMEN: No masses. LABORATORY DATA: Creatinine is 6.6. ASSESSMENT: 1. Pontine hemorrhage. No surgical intervention. 2. Renal failure, on dialysis, hypertension. Pulmonary varner, she is stable. We will follow at a distance. Please call if needed. Job ID: [id number]
[2019-09-05 12:09] VITALS: TEMP 98.1
[2019-09-05 12:35] VITALS: BP 158/69
--- NOTE | 2019-09-05 13:58 | PQF ---
TANYA WESTSUSHANT [id number] [facility] [place]-219 [id number] CLINICAL DOCUMENTATION IMPROVEMENT CLARIFICATION FORM: ICD-10 Updated PLEASE DO AN ADDENDUM TO THE PROGRESS NOTE WITH ANY DOCUMENTATION UPDATES OR ADDITIONS AND CARRY THROUGH TO DC SUMMARY. THANK YOU. DATE: 09/05/2019 ATTN:DR. Erick SOTO Please exercise your independent, professional judgment in responding to the clarification form. Clinical indicators are provided on the bottom of this form for your review. Please check appropriate box(s): [ > ] Encephalopathy: Type: [ > ] Acute [ ] Subacute [ ] Chronic Etiology: [ ] Hypertensive [ >] Metabolic [ ] Toxic [ ] Other diagnosis [ ] Unable to determine In addition, please specify: Present on Admission (POA): [ >] Yes [ ] No [ ] Unable to determine For continuity of documentation, please document condition throughout progress notes and discharge summary. Thank You. CLINICAL INDICATORS - SIGNS / SYMPTOMS / LABS / RESULTS AND LOCATION IN EMR 08/31 ED REPORT: PRESENTS FOR AMS AND ALTERATION IN BEHAVIOR BY FAMILY. FINAL ED PHYSICIAN DX: RENÉ HEMORRHAGE, HEADACHE 08/31 CONSULT (MERLY) POSITIVE FOR CONFUSION 08/31 CONSULT (JACKLYN) PRESENTS TO THE EMERGENCY ROOM WITH HYPERTENSIVE CRISIS AND ALTERED MENTAL STATUS OBSERVED BY HER FAMILY. SHE STATED SHE COULD NOT THINK OF THE WORDS TO SAY AND IT WAS A SUDDEN ONSET OF CONFUSION. RISK: HYPERTENSIVE CRISIS , ESRD, PONTINE HEMORRHAGE ( CONSULT/ COSENZA) 08/31 TREATMENTS: NEURO SX CONSULT ( 09/01/RADHAA) NICARDIPINE IV (08/31) THANK YOU! JANN (This form is maintained as a part of the permanent medical record) 2014 [employer]. All Rights Reserved MARIAMA [email or web address]
--- NOTE | 2019-09-06 02:49 | DIS ---
DATE OF ADMISSION: 09/01/2019 DATE OF DISCHARGE: 09/05/2019 DISCHARGE DIAGNOSES: 1. Brainstem hemorrhage with hemorrhagic cerebrovascular accident. 2. Hypertensive emergency. 3. Diabetes mellitus, type 2. 4. Anemia due to chronic disease. 5. End-stage renal disease. 6. History of aortic valve replacement. 7. Bladder prolapse through the anterior vaginal wall. DISCHARGE MEDICATIONS: 1. Nifedipine 60 mg extended release orally daily. 2. Vitamin D3 of 5000 units orally daily. 3. Clonidine 0.2 mg orally twice daily. 4. Vitamin B12 of 1000 mcg orally daily. 5. Epogen 7500 units subcu every seven days. 6. Isosorbide dinitrate 20 mg orally twice daily on Mondays, Thursday, and Thursday and then one tablet orally 3 times a day on Thursday, , Thursday and Thursday. 7. Sevelamer 800 mg orally t.i.d. 8. Terazosin 10 mg orally nightly. 9. Aspirin 81 mg orally daily. 10. Losartan 25 mg orally daily. 11. Tresiba insulin 45 units subcu nightly. 12. Multivitamin Dialyvite plus zinc one tablet orally daily. HISTORY OF PRESENT ILLNESS AND HOSPITAL COURSE: The patient is a 73-year-old female, who presented to the emergency department with hypertensive crisis and altered mental status observed by her family. She is an end-stage renal disease patient on hemodialysis, who developed sudden onset of confusion at home and was brought to the ER. In the ER, CT scan of the head was done and revealed a small bleeding in the pontine area of the brainstem. The patient did not exhibit any weakness or cranial nerves abnormalities. Her blood pressure was elevated and she was admitted to the ICU on nicardipine drip. Neurosurgery service consulted and they recommended against surgical intervention at this time. The patient's blood pressure was controlled with oral medications and she was transitioned off her nicardipine drip. She remained clinically stable for the rest of her hospital stay. Neurosurgery recommended repeat CT scan of the head in 2 to 3 weeks in the office. Job ID: [id number]
[2019-09-13 14:43] LABS: BUN (Urea Nitrogen) 38 mg/dL (9.8-20.1)
== END 2019-09-05 16:04 | DRG 64 ==
LOC: ERS 16:45 → CCU 19:55 → IMCU/EMU 09-02 20:00 → 2SE 09-03 18:27
PROVIDERS: ADMIT Emergency Medicine; ATTEND Emergency Medicine
PROC: 5A1D70Z Performance of Urinary Filtration, Intermittent, Less than 6 Hours Per Day (ICD-10-PCS; principal; 2019-09-03)
DX: I61.3 Nontraumatic intracerebral hemorrhage in brain stem (principal); G93.41 Metabolic encephalopathy; N18.6 End stage renal disease; I16.1 Hypertensive emergency; I12.0 Hypertensive chronic kidney disease with stage 5 chronic kidney disease or end stage renal disease; D63.1 Anemia in chronic kidney disease; E11.22 Type 2 diabetes mellitus with diabetic chronic kidney disease; N81.12 Cystocele, lateral; E78.5 Hyperlipidemia, unspecified; I25.10 Atherosclerotic heart disease of native coronary artery without angina pectoris; R40.2362 Coma scale, best motor response, obeys commands, at arrival to emergency department; R40.2142 Coma scale, eyes open, spontaneous, at arrival to emergency department; R40.2252 Coma scale, best verbal response, oriented, at arrival to emergency department; Z95.2 Presence of prosthetic heart valve; Z79.899 Other long term (current) drug therapy; Z99.2 Dependence on renal dialysis; Z90.49 Acquired absence of other specified parts of digestive tract; Z95.1 Presence of aortocoronary bypass graft; Z79.82 Long term (current) use of aspirin; Z86.73 Personal history of transient ischemic attack (TIA), and cerebral infarction without residual deficits; Z88.0 Allergy status to penicillin; Z90.710 Acquired absence of both cervix and uterus; Z79.4 Long term (current) use of insulin
CPT/HCPCS: 36415; 36416; 70450; 71045; 80048; 80053; 80307; 82550; 82553; 83690; 84484; 85025; 85610; 85730; 87340; 90935; 93005; 96365; 96366; 96375; C9113; G0257; J2405; J7050; Q5105

== ENCOUNTER 2020-03-26 18:41 | Inpatient (IN) | payer MEDICARE, OTHER ==
[2020-03-26 19:01] LABS: #Basophils 0.1 thou/uL (0.0-0.2); #Eosinphils 0.2 thou/uL (0.0-0.7); #Lymphocytes 1.9 thou/uL (1.20-3.40); #Monocytes 0.7 thou/uL (0.11-0.59); #Neutrophils 6.8 thou/uL (1.40-6.50); %Basophils 0.7 % (0.0-1.0); %Eosinophils 2.3 % (0.0-10.0); %Lymphocytes 19.3 % (21.0-51.0); %Monocytes 6.8 % (0.0-10.0); %Neutrophils 70.9 % (42.0-75.0); Hemoglobin 10.9 g/dL (12.0-16.0); Mean Corpuscular HGB CONC 33.4 g/dL (32.0-36.0); Mean Corpuscular Hemoglobin 33.5 pg (27.0-31.0); Mean Platelet Volume 8.2 fL (7.4-10.4); Platelet Count 136 thou/uL (130-400); RBC Distribution Width 14.7 % (11.5-14.5); Red Blood Cell (RBC) Count 3.27 mill/uL (4.20-5.40); White Blood Cell (WBC) Count 9.6 thou/uL (4.8-10.8)
[2020-03-26 19:25] LABS: ALT (SGPT) 20 U/L (8-55); AST (SGOT) 20 U/L (5-34); Albumin 3.9 g/dL (3.4-4.8); Alkaline Phosphatase 84 U/L (40-110); Anion Gap 20 mmol/L (10-20); BUN (Urea Nitrogen) 51 mg/dL (9.8-20.1); Bilirubin, Total 0.6 mg/dL (0.2-1.2); Calc. Creatinine Clearance 0 mL/min (70-130); Calcium 8.3 mg/dL (7.8-10.44); Carbon Dioxide 23 mmol/L (23-31); Chloride 100 mmol/L (98-107); Globulin 3.1 g/dL (2.4-3.5); Glucose 254 mg/dL (83-110); Potassium 4.4 mmol/L (3.5-5.1); Sodium 139 mmol/L (136-145)
[2020-03-26 19:46] LABS: CKMB 3.7 ng/mL (0-6.6)
--- NOTE | 2020-03-26 19:47 | CT ---
CT BRAIN PERFORMED WITHOUT CONTRAST ENHANCEMENT: History: Right sided facial droop. Comparison: 09-02-2019 FINDINGS: There is generalized ventricular and sulcal prominence. There are marked chronic white matter changes . There are no signs of hemorrhage or mass effect. Mastoid air cells show opacification of some of th e left mastoid air cells. There are also ethmoid air cell mucosal change. IMPRESSION: 1. No acute intracranial abnormality. 2. Findings telephoned to Dr. Luis at 1908 hours. POS: [facility] [place]
[2020-03-26] MEDS ORDERED: Aspirin Chewable 81 MG TAB ONE (20:24)
--- NOTE | 2020-03-26 20:51 | PDOC.HHP ---
Hospitalist HPI - History of Present Illness Right side weakness History of Present Illness: PCP: CASIMIRO Alvarenga ([place], [place]) The patient is a 74-year-old female with a past medical history significant for cerebral hemorrhage, HTN, DM 2 (insulin-dependent), CAD/CABG x1 with AVR (2013), atrial fibrillation (aspirin) and ESRD (//THU) that presents to the emergency department via EMS for the above complaint. The patient reports waking in her usual health this morning. She had a doctor's appointment with Dr. Plascencia this afternoon. At that time, the patient did not have any neurological d eficits. At approximately 1500, her son came home and noted that the patient had significant right facial droop, slurred speech and right hand weakness. He called EMS. The patient and the family member denies any recent fall or trauma. Denies any recent fever, illness or neck stiffness. Denied any headache or change in vision. Denies any recent changes to her medications. Denies any dysuria or hematuria. Denies abdominal pain, nausea, vomiting, diarrhea. Denies any cough, wheezing or shortness of breath. Denies any chest pain, heart palpitations or lightheadedness. ED Course: VITAL SIGNS ThuMar 26, 2020 18:42 MARIAMA Carrillo Daylee BP: 145/79, Pulse: 130, Resp: 18, Temp: 98.4 (Oral), Pain: 0, O2 sat: 96 on (Room Air), Time: 03/26/2020 18:42. VITAL SIGNS ThuMar 26, 2020 20:29 MARIAMA Carrillo Daylee BP: 175/51, Pulse: 104, Resp: 16, Pain: 0, O2 sat: 95 on (Room Air), Time: 03/26/2020 20:29. Medications: aspirin oral 243 mg Oral Given 20:29 03/26/2020 Hospitalist ROS - Review of Systems All other systems reviewed; all pertinent +/- noted in HPI/Subj - Medication Medications: terazosin CAPSULE : Strength - 2 mg : ORAL Patient Dose: 2 mg Oral once a day. isosorbide dinitrate oral TABLET : Strength - 20 mg : ORAL Patient Dose: 20 mg Oral 3 times a day. cloNIDine HCl TABLET : Strength - 0.1 mg : ORAL Patient Dose: 0.2 mg Oral once a day. NIFEdipine TABLET, EXTENDED RELEASE : Strength - 90 mg : ORAL Patient Dose: 90 mg Oral once a day. Aspir-81 TABLET, DELAYED RELEASE (ENTERIC COATED) : Strength - 81 mg : ORAL Patient Dose: 81 mg Oral once a day (in the morning). Vitamin D3 CAPSULE : Strength - 2,000 unit : ORAL Patient Dose: 1 null Oral once a day (in the morning). Renvela TABLET : Strength - 800 mg : ORAL Patient Dose: 800 mg Oral 3 times a day (with meals). Tresiba 42 units SC nightly allergies: Penicillins Hospitalist History - Past Medical History Source: patient, family, RN notes reviewed Cardiac: reports: AFIB, CAD, HTN, Hyperlipidemia PRECISION MILLWRIGHT: reports: Other (cerebral hemorrhage, no residual deficits) Renal/: reports: Chronic renal failure (HD //Thu) Endocrine: reports: Diabetes (type II, insulin dependent) - Past Surgical History Other Surgical History: CABG x1 with AVR (2013), back surgery, left hip surgery, right upper extremity hemodialysis fistula - Social History Smoking Status: Unknown if ever smoked Alcohol: reports: None Drugs: reports: none Living Situation: Alone Occupation: Tired Activity level: independent ambulation - Exam General Appearance: NAD, awake alert. negative: ill appearing Eye: PERRL, anicteric sclera ENT: normocephalic atraumatic Neck: supple, symmetric Heart: no gallops, no rubs, normal peripheral pulses, irregular, II/IV Respiratory: CTAB, no wheezes, no rales, no ronchi, normal chest expansion, no tachypnea Gastrointestinal: soft, non-tender, normal bowel sounds, no bruit, no guarding, no rigidity Gastrointestinal - other findings: No rebound tenderness Extremities: no cyanosis, no edema Skin: no rashes Neurological - other findings: NIH 2, right bag printer weak, mild aphasia Psychiatric: normal affect, A&O x 3 Hospitalist Results - Labs Result Diagrams: 03/26/20 18:50 03/26/20 18:50 Lab results: WBC 9.6 thou/uL (4.8-10.8) 03/26/20 18:50 Hgb 10.9 g/dL (12.0-16.0) L 03/26/20 18:50 Hct 32.7 % (36.0-47.0) L 03/26/20 18:50 MCV 100.0 fL (78.0-98.0) H 03/26/20 18:50 Plt Count 136 thou/uL (130-400) 03/26/20 18:50 Neutrophils % 70.9 % (42.0-75.0) 03/26/20 18:50 Sodium 139 mmol/L (136-145) 03/26/20 18:50 Potassium 4.4 mmol/L (3.5-5.1) 03/26/20 18:50 Chloride 100 mmol/L (98-107) 03/26/20 18:50 Carbon Dioxide 23 mmol/L (23-31) 03/26/20 18:50 BUN 51 mg/dL (9.8-20.1) H 03/26/20 18:50 Creatinine 6.80 mg/dL (0.6-1.1) H 03/26/20 18:50 Glucose 254 mg/dL (83-110) H 03/26/20 18:50 Calcium 8.3 mg/dL (7.8-10.44) 03/26/20 18:50 Total Bilirubin 0.6 mg/dL (0.2-1.2) 03/26/20 18:50 AST 20 U/L (5-34) 03/26/20 18:50 ALT 20 U/L (8-55) 03/26/20 18:50 Alkaline Phosphatase 84 U/L (40-110) 03/26/20 18:50 CK-MB (CK-2) 3.7 ng/mL (0-6.6) 03/26/20 18:50 Troponin I 0.032 ng/mL (< 0.028) H 03/26/20 18:50 Serum Total Protein 7.0 g/dL (6.0-8.3) 03/26/20 18:50 Albumin 3.9 g/dL (3.4-4.8) 03/26/20 18:50 - EKG Interpretation EK lead EKG interpreted by Emergency Department Physician at time of study, 12 lead EKG shows, atrial fibrillation with rapid ventricular response, Rate (beats per minute): 113, with no ectopics, Conduction normal, ST segments normal, T waves, inverted, Leads affected: I, Leads affected: aVl, Leads affected: V5, Leads affected: V6, Old T wave inversions. No new changes. Compared to 09/01/2019. - Radiology Interpretation CT scan - head Status: report reviewed by me Additional Comment: IMPRESSION: 1. No acute intracranial abnormality. 2. Findings telephoned to Dr. Luis at 1908 hours. Hospitalist H&P A/P - Problem (1) Stroke Code(s): I63.9 - CEREBRAL INFARCTION, UNSPECIFIED Status: Acute (2) Right sided weakness Code(s): R53.1 - WEAKNESS Status: Acute (3) Atrial fibrillation Code(s): I48.91 - UNSPECIFIED ATRIAL FIBRILLATION Status: Chronic (4) HTN (hypertension) Code(s): I10 - ESSENTIAL (PRIMARY) HYPERTENSION Status: Chronic (5) DM2 (diabetes mellitus, type 2) Status: Chronic (6) CAD (coronary artery disease) Code(s): I25.10 - ATHSCL HEART DISEASE OF [place] CORONARY ARTERY W/O ANG PCTRS Status: Chronic (7) End stage renal disease Code(s): N18.6 - END STAGE RENAL DISEASE Status: Chronic - Plan Plan: 74/F with PMH A. fib, ESRD, CAD, DM 2 presents for stroke symptoms. Admit to stroke unit, inpatient status. Expected length stay greater than 2 midnights. Presented hypertensive, tachycardic, NL RR, SPO2, afebrile. EKG atrial fibrillation, RVR, no new changes. Troponin 0.032, CK-MB 3.7 UA/Covid pending CMP, CBC unremarkable. NIH 3 in ED, improved to NIH 2 (R hand weak and aphasia) #Stroke Suspected. Order MRI, CD US, echocardiogram. Consult neurology and stroke team. Continue full dose aspirin, start statin. Check TSH, FLP, mag, UA, B12/folate. Permissive hypertension. Baseline CXR. #Right-sided weakness Likely related problem for 1. #Atrial fibrillation Chronic, on baby aspirin. Upon assessment, rate controlled 90s to low 100s. Has history of cerebral hemorrhage, on baby aspirin at home. We will continue full dose aspirin for now. We will defer anticoagulation to neurology. #HTN Presented hypertensive. Takes Terazosin, isosorbide dinitrate, clonidine, Procardia at home. We will restart her medications when reconciled by nursing. #DM2 Chronic, insulin-dependent. Takes Tresiba 42 units SC nightly at home. We will restart home dose Tresiba when reconciled by nursing. We will start moderate ISS. AC/at bedtime Accu-Cheks. #CAD History of CABG x1 with AVR (2013) Continue home aspirin, Procardia, isosorbide dinitrate. #End-stage renal disease Scheduled Thursday//Thursday Clinic recently closed, was followed by Dr. Cuello. We will consult nephrology for maintenance hemodialysis. SCDs for DVT prophylaxis. Pepcid for GI prophylaxis. Full code. Contact is Mohsen, son at [phone]. Discussed case with Dr. Melvin Pak.
[2020-03-26] MEDS ORDERED: hydrALAZINE 20 MG/ML VIAL SLOW IVP PRN (21:12)
[2020-03-26] MEDS ORDERED: Dextrose 5% in Water 1,000 ML IV PRN (21:15)
[2020-03-26] MEDS ORDERED: HumaLOG 300 UNITS/3 ML VIAL SC PRN (21:15)
[2020-03-26] MEDS ORDERED: Dextrose 50% Abboject 50 ML SYRINGE SLOW IVP PRN (21:15)
[2020-03-26] MEDS ORDERED: Ondansetron ODT 4 MG TAB PO PRN (21:17)
[2020-03-26] MEDS ORDERED: Senokot S 8.6-50 MG TAB PO PRN (21:17)
[2020-03-26] MEDS ORDERED: Acetaminophen 325 MG TAB PO PRN (21:17)
[2020-03-26] MEDS ORDERED: Calcium Carbonate 500 MG ChewTAB PO PRN (21:17)
[2020-03-26] MEDS ORDERED: Ondansetron PF 4 MG/2 ML Vial IVP PRN (21:17)
--- NOTE | 2020-03-26 22:07 | RAD ---
XR Chest 1 View Portable History: Shortness of breath Comparison: Radiograph August 2019 Findings: Heart size is enlarged. No pneumothorax. No effusion. No confluent airspace consolidation. No acute osseous abnormality. Prosthetic aortic valve. Impression: Cardiomegaly. No acute intrathoracic abnormality.
[2020-03-27 01:56] VITALS: BMI 28.4
[2020-03-27 02:02] LABS: Troponin I 0.041 ng/mL (< 0.028)
[2020-03-27] MEDS: Labetalol HCl 100 MG/20 ML VIAL SLOW IVP PRN ×3 (04:46→16:57)
[2020-03-27 05:22] LABS: Bacteria/HPF 1+ HPF (None Seen); Bilirubin Negative (Negative); Blood, Urine Trace (Negative); Clarity Clear (Clear); Glucose, Urine (Dipstick) 500 mg/dL (Negative); Ketone, Urine Negative (Negative); Leukocyte 250 Leu/uL (Negative); Nitrite Negative (Negative); Protein, Urine (Dipstick) 200 mg/dL (Neg-Trace); RBC/HPF 0-3 HPF (0-3); Specific Gravity, Urine 1.011 (1.002-1.036); Urobilinogen Normal mg/dL (Less than 2)
[2020-03-27] MEDS: HumaLOG 300 UNITS/3 ML VIAL SC PRN ×2 (06:21→11:09)
[2020-03-27 07:16] LABS: #Eosinphils 0.2 thou/uL (0.0-0.7); #Lymphocytes 1.1 thou/uL (1.20-3.40); #Monocytes 0.4 thou/uL (0.11-0.59); #Neutrophils 6.8 thou/uL (1.40-6.50); %Basophils 0.2 % (0.0-1.0); %Eosinophils 1.8 % (0.0-10.0); %Lymphocytes 13.3 % (21.0-51.0); %Monocytes 5.2 % (0.0-10.0); %Neutrophils 79.5 % (42.0-75.0); Hemoglobin 10.8 g/dL (12.0-16.0); Mean Corpuscular HGB CONC 33.4 g/dL (32.0-36.0); Mean Corpuscular Hemoglobin 32.7 pg (27.0-31.0); Mean Corpuscular Volume 97.9 fL (78.0-98.0); Platelet Count 148 thou/uL (130-400); RBC Distribution Width 14.8 % (11.5-14.5); Red Blood Cell (RBC) Count 3.31 mill/uL (4.20-5.40); White Blood Cell (WBC) Count 8.6 thou/uL (4.8-10.8)
[2020-03-27 07:37] LABS: Anion Gap 21 mmol/L (10-20); BUN (Urea Nitrogen) 55 mg/dL (9.8-20.1); Calc. Creatinine Clearance 8 mL/min (70-130); Calcium 8.4 mg/dL (7.8-10.44); Carbon Dioxide 22 mmol/L (23-31); Cardiac Risk 4.8 (Less than 4.5); Chloride 102 mmol/L (98-107); Cholesterol 119 mg/dl (< 200 Desired); Glucose 199 mg/dL (83-110); HDL Cholesterol 25 mg/dL (>60 Neg Risk); LDL Cholesterol, Calculated 57 mg/dL; Potassium 4.6 mmol/L (3.5-5.1); Sodium 140 mmol/L (136-145); Triglycerides 187 mg/dL (Less than 150)
--- NOTE | 2020-03-27 07:37 | ULT ---
BILATERAL CAROTID DUPLEX ULTRASOUND: HISTORY: Right facial droop TECHNIQUE: Grayscale, color-flow and spectral Doppler ultrasound imaging of the extracranial carotid artery syst ems was performed bilaterally. FINDINGS: There is plaque formation on both sides The peak systolic velocity in the right ICA measures 65 cm/s with an end-diastolic velocity of 8 cm/s and a systolic ratio of 0.90. The peak systolic velocity in the left ICA measures 77 cm/s with an end-diastolic velocity of 8 c m/s and a systolic ratio of 0.92. Flow in both vertebral arteries remains antegrade. IMPRESSION: No evidence of hemodynamically significant stenosis.
[2020-03-27 07:42] LABS: Troponin I 0.037 ng/mL (< 0.028)
[2020-03-27] MEDS: Famotidine 20 MG TAB PO SCH (07:54)
[2020-03-27] MEDS: Aspirin 325 mg Enteric Coated Tablet PO SCH (07:54)
[2020-03-27 08:26] LABS: SARS-CoV-2 MS2 Positive; SARS-CoV-2 N Gene Negative; SARS-CoV-2 S Gene Negative; SARS-CoV-2 by NAA Not Detected (NotDetected); SARS-CoV-2 orf1ab Negative
[2020-03-27 12:29] LABS: HBSAg Index 0.19 S/CO (0-0.99); Hep B Surf Ag Non-Reactive S/CO (NonReactive)
[2020-03-27 12:34] LABS: HBSAB Concentration 405.97 mIU/mL; Hep B Surf AB Reactive (NonReactive)
--- NOTE | 2020-03-27 12:59 | CON ---
NEUROLOGY CONSULTATION DATE OF CONSULTATION: 03/27/2020 REASON FOR CONSULTATION: Right-sided weakness, rule out stroke. HISTORY OF PRESENT ILLNESS: Ms. Simms is a 74-year-old female with medical history significant for prior cerebral hemorrhage, hypertension, diabetes mellitus type 2, coronary artery disease, CABG x1 with AVR in 2013, atrial fibrillation, end- stage renal disease on hemodialysis, presented to the emergency department because of an episode of right-sided weakness. Per patient, she was in her usual health yesterday morning when she had an appointment with Dr. Plascencia. At that time, she did not have any neurological deficits. Around 3:00 p.m., her son came home and noted that she had significant right-sided weakness with slurred speech and right facial droop. He called the EMS and she was brought here for further evaluation. The patient denies any nausea, vomiting, headache, chest pain, abdominal pain, recent illness, vertigo, dizziness, double vision, loss of vision, loss of consciousness, lightheadedness, or exposure to COVID. In the emergency room, she was given aspirin and admitted for further evaluation. REVIEW OF SYSTEMS: All systems reviewed and were negative except the pertinent positives and negatives mentioned in the HPI. HOME MEDICATIONS: 1. Terazosin 2 mg once daily. 2. Isosorbide dinitrate 20 mg three times a day. 3. Clonidine 0.2 mg once a day. 4. Nifedipine 90 mg once daily. 5. Aspirin 81 mg daily. 6. Vitamin D3 2000 units once daily. 7. Renvela 800 mg t.i.d. with meals. 8. Tresiba 42 units subcutaneous nightly. ALLERGIES: PENICILLIN. PAST MEDICAL HISTORY: Atrial fibrillation, coronary artery disease, hypertension, hyperlipidemia, prior cerebral hemorrhage with no residual deficits, chronic renal failure on hemodialysis three times a week, diabetes mellitus insulin dependent. PAST SURGICAL HISTORY: CABG x1 with AVR in 2014, back surgery, left hip surgery, right upper extremity hemodialysis fistula. SOCIAL HISTORY: The patient lives alone. Activity level includes independent ambulation. She denies alcohol, illegal drugs, or nicotine abuse. PHYSICAL EXAMINATION: VITAL SIGNS: Blood pressure 145/79, pulse 85, respiratory rate 18. General Appearance: NAD, awake alert. negative: ill appearing Eye: PERRL, anicteric sclera ENT: normocephalic atraumatic Neck: supple, symmetric Heart: no gallops, no rubs, normal peripheral pulses, irregular, II/IV Respiratory: CTAB, no wheezes, no rales, no ronchi, normal chest expansion, no tachypnea Gastrointestinal: soft, non-tender, normal bowel sounds, no bruit, no guarding, no rigidity Gastrointestinal - other findings: No rebound tenderness Extremities: no cyanosis, no edema Skin: no rashes Neurological Mental status; the patient is alert and oriented to person, place, and time. Recent and remote memory intact. Speech is clear. Motor; muscle tone and bulk are normal. Moving all 4 extremities equally and symmetrically. Right hand dispensing and measuring optician is about 4+/5. Rest is 5/5. Sensory, intact. Cerebellar, finger-nose testing intact. Gait deferred due to the patient's safety reasons. Cranial nerves 2 through 12 intact. DATA REVIEWED: I reviewed the labs which were significant for anemia, hemoglobin of 10.9, hematocrit of 32.7, and also BUN of 51 and creatinine of 6.80. EKG showed atrial fibrillation with rapid ventricular response. CT head did not reveal any acute intracranial pathology. Lab results: WBC 9.6 thou/uL (4.8-10.8) 03/26/20 18:50 Hgb 10.9 g/dL (12.0-16.0) L 03/26/20 18:50 Hct 32.7 % (36.0-47.0) L 03/26/20 18:50 MCV 100.0 fL (78.0-98.0) H 03/26/20 18:50 Plt Count 136 thou/uL (130-400) 03/26/20 18:50 Neutrophils % 70.9 % (42.0-75.0) 03/26/20 18:50 Sodium 139 mmol/L (136-145) 03/26/20 18:50 Potassium 4.4 mmol/L (3.5-5.1) 03/26/20 18:50 Chloride 100 mmol/L (98-107) 03/26/20 18:50 Carbon Dioxide 23 mmol/L (23-31) 03/26/20 18:50 BUN 51 mg/dL (9.8-20.1) H 03/26/20 18:50 Creatinine 6.80 mg/dL (0.6-1.1) H 03/26/20 18:50 Glucose 254 mg/dL (83-110) H 03/26/20 18:50 Calcium 8.3 mg/dL (7.8-10.44) 03/26/20 18:50 Total Bilirubin 0.6 mg/dL (0.2-1.2) 03/26/20 18:50 AST 20 U/L (5-34) 03/26/20 18:50 ALT 20 U/L (8-55) 03/26/20 18:50 Alkaline Phosphatase 84 U/L (40-110) 03/26/20 18:50 CK-MB (CK-2) 3.7 ng/mL (0-6.6) 03/26/20 18:50 Troponin I 0.032 ng/mL (< 0.028) H 03/26/20 18:50 Serum Total Protein 7.0 g/dL (6.0-8.3) 03/26/20 18:50 Albumin 3.9 g/dL (3.4-4.8) 03/26/20 18:50 - EKG Interpretation EK lead EKG interpreted by Emergency Department Physician at time of study, 12 lead EKG shows, atrial fibrillation with rapid ventricular response, - Radiology Interpretation CT scan - head Status: report reviewed by me IMPRESSION: 1. No acute intracranial abnormality. ASSESSMENT AND PLAN: (1) Stroke Code(s): I63.9 - CEREBRAL INFARCTION, UNSPECIFIED Status: Acute (2) Right sided weakness Code(s): R53.1 - WEAKNESS Status: Acute (3) Atrial fibrillation Code(s): I48.91 - UNSPECIFIED ATRIAL FIBRILLATION Status: Chronic (4) HTN (hypertension) Code(s): I10 - ESSENTIAL (PRIMARY) HYPERTENSION Status: Chronic (5) DM2 (diabetes mellitus, type 2) Status: Chronic (6) CAD (coronary artery disease) Code(s): I25.10 - ATHSCL HEART DISEASE OF [place] CORONARY ARTERY W/O ANG PCTRS Status: Chronic (7) End stage renal disease Code(s): N18.6 - END STAGE RENAL DISEASE Status: Chronic Ms. Lena Simms is a 74-year-old female with medical history significant for atrial fibrillation, hypertension, hyperlipidemia, diabetes, end-stage renal disease, coronary artery disease, presented with an episode of slurred speech with right-sided weakness which is almost resolved. Head CT did not reveal acute intracranial pathology. Need MRI of the brain to rule out acute intracranial process. 2D echo to evaluate for left ventricular ejection fraction and telemetry and carotid Dopplers. The patient was on aspirin 81 mg daily at home, so increase to full dose of aspirin. Permissive control of blood pressure at this time. Strict control of blood glucose. Neuro checks every 4 hours. Continue home medications. Continue medical management per primary team. PT/OT/Speech. DVT prophylaxis. We will continue to follow. Thank you for the consult. Job ID: [id number] [facility]
[2020-03-27] MEDS ORDERED: cloNIDine 0.1 MG TAB PO PRN (14:05)
[2020-03-27] MEDS ORDERED: Isosorbide Dinitrate 20 MG TAB PO SCH ×3 (14:15→14:30)
--- NOTE | 2020-03-27 15:59 | MRI ---
MRI OF THE BRAIN WITHOUT CONTRAST: 03/27/20 INDICATIONS: Right sided facial droop. Question stroke. FINDINGS: Mild to moderate cortical atrophy. Moderate chronic ischemic white matter changes. There is restricted diffusion in the left frontal lobe involving the precentral gyrus consistent with acute infarct. This may involve portions of the post central gyrus as well. Gliosis in the left frontal lobe extends to the cortex superiorly. This may represent a focus of old cortical infarct. Intracranial internal carotid arteries, proximal cerebral arteries and basilar arteries show flow voi ds. Mucosal edema in the left mastoids. IMPRESSION: 1. Evidence of acute infarct in the left frontal lobe involving precentral and probably postcent ral gyrus along the central sulcus in the left MCA distribution. 2. Moderately severe chronic ischemic white matter changes. POS: AGW
[2020-03-27] MEDS: Sevelamer Carbonate 800 MG TAB PO SCH (16:25)
[2020-03-27] MEDS ORDERED: Labetalol HCl 100 MG/20 ML VIAL SLOW IVP PRN (17:57)
[2020-03-27] MEDS ORDERED: cloNIDine 0.1 MG TAB PO SCH (18:00)
[2020-03-27] MEDS ORDERED: NIFEdipine XL 30 MG TAB PO SCH ×2 (18:00→21:00)
--- NOTE | 2020-03-27 18:20 | PDOC.HOSPP ---
- Subjective Encounter Date: 03/27/20 Encounter Time: 14:00 Subjective: Patient seen and examined for right-sided weakness. No new focal deficit. Denies any chest pain, shortness of breath or palpitations. Undergoing hemodialysis. - Objective Vital Signs & Weight: Vital Signs (12 hours) Temp Pulse Pulse Pulse Resp BP BP 03/27/20 17:47 03/27/20 16:57 90 03/27/20 16:55 90 03/27/20 16:15 97.8 F 87 18 03/27/20 14:19 98.3 F 84 18 03/27/20 09:35 75 72 220/101 H 03/27/20 09:00 03/27/20 08:52 77 202/84 H 03/27/20 08:00 76 220/95 H 03/27/20 07:54 97.5 F L 78 16 BP BP Pulse Ox 03/27/20 17:47 220/96 H 03/27/20 16:57 03/27/20 16:55 210/100 H 03/27/20 16:15 99 03/27/20 14:19 198/101 H 96 03/27/20 09:35 208/97 H 03/27/20 09:00 202/84 H 03/27/20 08:52 03/27/20 08:00 03/27/20 07:54 96 Weight Weight 176 lb 2.389 oz I&O: 03/26/20 03/27/20 03/28/20 06:59 06:59 06:59 Intake Total 250 Output Total 200 2700 Balance -200 -2450 Result Diagrams: 03/27/20 07:06 03/27/20 07:06 Additional Labs: Accuchecks 03/27/20 03/27/20 03/27/20 16:14 10:32 06:11 POC Glucose 92 167 H 196 H 03/26/20 18:45 POC Glucose 236 H Abnormal Lab Results - Last 48 hrs 03/26/20 05:10: Urine Protein 200 A, Urine Glucose (UA) 500 A, Urine Blood Trace A, Ur Leukocyte Esterase 250 A, Urine WBC 7-10 A, Ur Squamous Epith Cells 11-20 A, Urine Bacteria 1+ A 03/26/20 18:50: RBC 3.27 L, Hgb 10.9 L, Hct 32.7 L, MCV 100.0 H, MCH 33.5 H, RDW 14.7 H, Lymphocytes % 19.3 L, Neutrophils # 6.8 H, Monocytes # 0.7 H 03/26/20 18:50: BUN 51 H, Creatinine 6.80 H 03/26/20 18:50: Troponin I 0.032 H 03/27/20 01:23: Troponin I 0.041 H 03/27/20 07:06: Carbon Dioxide 22 L, Anion Gap 21 H, BUN 55 H, Creatinine 7.60 H, Triglycerides 187 H 03/27/20 07:06: Troponin I 0.037 H 03/27/20 07:06: RBC 3.31 L, Hgb 10.8 L, Hct 32.4 L, MCH 32.7 H, RDW 14.8 H, Neutrophils % 79.5 H, Lymphocytes % 13.3 L, Neutrophils # 6.8 H, Lymphocytes # 1.1 L Radiology Reviewed by me: Yes (MRI brainacute CVA) EKG Reviewed by me: Yes (Atrial fibrillation on telemetry) Hospitalist ROS - Review of Systems Cardiovascular: denies: chest pain, palpitations, orthopnea, paroxysmal noc. dyspnea, edema, light headedness, other Gastrointestinal: denies: nausea, vomiting, abdominal pain, diarrhea, constipation, melena, hematochezia, other - Medication Medications: Active Medications Generic Name Dose Route Start Last Admin Trade Name Freq PRN Reason Stop Dose Admin Aspirin 325 mg 03/27/20 09:00 03/27/20 07:54 Aspirin 325 Mg Enteric Coated Tablet PO 325 mg DAILY MARCIN Administration Clonidine 0.1 mg 03/27/20 14:05 03/27/20 14:26 Clonidine 0.1 Mg Tab PO 0.1 mg Q4H PRN Administration SBP Greater Than 180 Famotidine 20 mg 03/27/20 09:00 03/27/20 07:54 Famotidine 20 Mg Tab PO 20 mg DAILY MARCIN Administration Insulin Human Lispro 0 units 03/26/20 21:15 03/27/20 11:09 Humalog 300 Units/3 Ml Vial SC 2 unit .MODERATE SLIDING SC PRN Administration Moderate Correctional Scale Sevelamer Carbonate 1,600 mg 03/27/20 17:00 03/27/20 16:25 Sevelamer Carbonate 800 Mg Tab PO 1,600 mg TID-WM MARCIN Administration Sodium Chloride 10 ml 03/26/20 21:12 03/27/20 07:54 Flush - Normal Saline 10 Ml Syringe IVF 10 ml PRN PRN Administration Saline Flush - Exam General Appearance: NAD Neck: supple Heart: no gallops, no rubs, normal peripheral pulses, irregular Respiratory: no wheezes, no rales, no ronchi, normal chest expansion Gastrointestinal: soft, non-tender, non-distended, no guarding, no rigidity Extremities: no cyanosis, no clubbing Skin: normal turgor Neurological: no new deficit Psychiatric: normal affect, A&O x 3 Hosp A/P - Plan DVT proph w/SCDs Acute left MCA distribution CVA causing right-sided weakness Diabetes mellitus type 2 Coronary artery disease End-stage renal disease on hemodialysis Atrial fibrillation Hypertension Hyperlipidemia History of intracerebral bleed in Plan: Continue monitoring in the stroke unit. Carotid ultrasound negative for he modynamically significant stenosis. Will continue statins with aspirin. Resume clonidine, Procardia XL, isosorbide dinitrate. Dialysis per nephrology. Neurology input appreciated. Will consult cardiology due to suspected embolic CVA. Echocardiogram pending at this time. Continue other medications as above. A.m. labs. Patient understands above plan of care
[2020-03-27] MEDS: cloNIDine 0.1 MG TAB PO SCH (20:13)
[2020-03-27] MEDS: Terazosin HCl 1 MG CAP PO SCH (21:29)
[2020-03-27] MEDS: Atorvastatin Calcium 40 MG TAB PO SCH (21:29)
[2020-03-27] MEDS ORDERED: hydrALAZINE 20 MG/ML VIAL SLOW IVP PRN (22:46)
[2020-03-28 05:30] LABS: Anion Gap 19 mmol/L (10-20); BUN (Urea Nitrogen) 26 mg/dL (9.8-20.1); Calc. Creatinine Clearance 13 mL/min (70-130); Calcium 8.7 mg/dL (7.8-10.44); Carbon Dioxide 24 mmol/L (23-31); Chloride 98 mmol/L (98-107); Glucose 162 mg/dL (83-110); Potassium 4.4 mmol/L (3.5-5.1); Sodium 137 mmol/L (136-145)
[2020-03-28] MEDS: HumaLOG 300 UNITS/3 ML VIAL SC PRN (06:07)
[2020-03-28 08:30] LABS: #Eosinphils 0.2 thou/uL (0.0-0.7); #Lymphocytes 1.3 thou/uL (1.20-3.40); #Monocytes 0.5 thou/uL (0.11-0.59); #Neutrophils 6.2 thou/uL (1.40-6.50); %Basophils 0.3 % (0.0-1.0); %Eosinophils 1.9 % (0.0-10.0); %Lymphocytes 16.3 % (21.0-51.0); %Monocytes 6.2 % (0.0-10.0); %Neutrophils 75.4 % (42.0-75.0); Hemoglobin 11.3 g/dL (12.0-16.0); Mean Corpuscular HGB CONC 33.2 g/dL (32.0-36.0); Mean Corpuscular Hemoglobin 33.2 pg (27.0-31.0); Mean Platelet Volume 8.7 fL (7.4-10.4); Platelet Count 149 thou/uL (130-400); RBC Distribution Width 15.1 % (11.5-14.5); White Blood Cell (WBC) Count 8.2 thou/uL (4.8-10.8)
[2020-03-28] MEDS: Sevelamer Carbonate 800 MG TAB PO SCH ×3 (09:19→17:52)
[2020-03-28] MEDS: Famotidine 20 MG TAB PO SCH (09:19)
[2020-03-28] MEDS: Cyanocobalamin (Vitamin B-12) 1,000 MCG TAB PO SCH (09:19)
[2020-03-28] MEDS: Aspirin 325 mg Enteric Coated Tablet PO SCH (09:19)
[2020-03-28] MEDS: cloNIDine 0.1 MG TAB PO SCH ×2 (09:19→20:36)
[2020-03-28] MEDS: NIFEdipine XL 60 MG TAB PO SCH (09:19)
--- NOTE | 2020-03-28 09:37 | CON ---
DATE OF CONSULTATION: 03/28/2020 HISTORY OF PRESENT ILLNESS: Ms. Simms is a 74-year-old white female, admitted for an acute CVA. We are now being consulted for management of her maintenance hemodialysis. The patient initially presented due to a right-sided weakness as well as facial weakness with some slurring. Brain MRI was done with the patient on March 27, 2020. This showed an acute infarct in the left frontal lobe involving percentile and probably postcentral gyrus along the central sulcus of the left MCA distribution. She also was found to have moderately severe chronic ischemic white matter changes. Neurology consult has been done. She tolerated hemodialysis yesterday without any complications. REVIEW OF SYSTEMS: No chest pain. Right-sided weakness actually improved and currently no slurring. No chest pain. No shortness of breath. No nausea. No vomiting. No diarrhea. No constipation. No productive cough. No fever or chills. No syncopal episode. No dysuria. No urinary frequency. No headache. No diplopia. MEDICATIONS: Currently on, 1. Acetaminophen 325 mg q.4 p.r.n. 2. Atorvastatin 40 mg tablet at bedtime. 3. Clonidine 0.1 mg p.o. b.i.d. 4. Vitamin B12 one tablet daily. 5. Famotidine 20 mg daily. 6. Humalog sliding scale. 7. Isordil 20 mg t.i.d. 8. Nifedipine 60 mg XL tablet once a day. 9. Zofran p.r.n. 10. Sevelamer 800 mg two tablets t.i.d. with meals. 11. Terazosin one tablet at bedtime. PAST MEDICAL HISTORY: 1. End-stage renal disease from hypertensive nephropathy. 2. Longstanding history of hypertension. 3. Recent acute cerebrovascular accident, left frontal lobe. 4. Status post intracerebral bleed. 5. Type 2 diabetes mellitus. 6. Valvular heart disease. 7. Coronary artery disease. PAST SURGICAL HISTORY: Status post cardiac cath, status post CABG, status post aortic valve replacement, status post back surgery, status post colonoscopy, status post laparoscopic cholecystectomy, status post AV fistula placement, status post cuffed hemodialysis catheter placement. SOCIAL HISTORY: The patient is , lives in [place]. She has 2 children. 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 No history of smoking. No alcohol intake. No blood transfusion. Education, high school. Sedentary lifestyle. ALLERGIES: PENICILLIN. TRAUMA: None. IMMUNIZATIONS: Up to date. HOSPITALIZATIONS: Please see past medical history. FAMILY HISTORY: No family history of ESRD. PHYSICAL EXAMINATION: VITAL SIGNS: Blood pressure is noted at 178/82, heart rate 91, respiratory rate 16, temperature 98.2, O2 saturation 90% on room air. GENERAL: Awake, alert, comfortable, not in distress. SKIN: Adequate turgor. HEENT: She has a pinkish conjunctivae. Anicteric sclerae. No neck mass. No carotid bruits. No JVD. CHEST: No deformities. LUNGS: Clear breath sounds. No wheezing. No crackles. HEART: Normal sinus rhythm, grade 2/6 systolic murmur. No gallops. No rubs. ABDOMEN: Globular, soft, nontender. No masses. EXTREMITIES: No edema. No deformities. NEUROLOGIC: Moving all extremities except for decreased motor on the right side. Mild right-sided facial asymmetry. No tremors. No asterixis. LABORATORY DATA: Laboratories of March 28, 2020; white count 8.2, hemoglobin 11.3. Sodium 137, potassium 4.4, chloride 98, carbon dioxide 24, BUN 26, creatinine 4.93, glucose 162, calcium 8.7. Brain MRI in March 27, 2020, showed acute infarct in the left frontal lobe involving precentral and postcentral gyrus. ASSESSMENT AND PLAN: 1. Status post cerebrovascular accident-continue supportive care. Neurology is following. 2. End-stage renal disease, stable, tolerating current hemodialysis regimen. We will continue Thursday, , Thursday dialysis regimen. Fluid removal as tolerated by the patient. 3. Hypertension. Continue current BP medications. Adjust BP medications as needed. Job ID: [id number]
--- NOTE | 2020-03-28 17:25 | PDOC.NEUPN ---
- Subjective Encounter Date: 03/28/20 Subjective: Feels better today. Right-sided focal deficits are resolved except for mild right hand weakness. - Objective Vital Signs & Weight: Vital Signs (12 hours) Temp Pulse Pulse Pulse Pulse Resp BP 03/28/20 15:52 98.1 F 78 16 03/28/20 11:45 98.1 F 78 18 03/28/20 08:53 79 79 178/82 H 03/28/20 08:49 78 80 80 220/78 H 03/28/20 07:35 98.2 F 91 16 BP BP BP Pulse Ox 03/28/20 15:52 166/80 H 94 L 03/28/20 11:45 167/77 H 94 L 03/28/20 08:53 190/81 H 03/28/20 08:49 139/65 192/78 H 03/28/20 07:35 178/82 H 90 L Weight Weight 176 lb 2.389 oz I&O: 03/27/20 03/28/20 03/29/20 06:59 06:59 06:59 Intake Total 400 Output Total 200 2700 Balance -200 -2300 Result Diagrams: 03/28/20 07:46 03/28/20 05:05 Additional Labs: Accuchecks 03/28/20 03/28/20 03/27/20 10:44 05:40 21:00 POC Glucose 136 H 176 H 159 H 03/27/20 16:14 POC Glucose 92 Radiology Reviewed by me: Yes EKG Reviewed by me: Yes ROS - Review of Systems Constitutional: denies: fever, chills, sweats, weakness, malaise, other Eyes: denies: pain, vision change, conjunctivae inflammation, eyelid inflammation, redness, other ENT: denies: ear pain, ear discharge, nose pain, nose discharge, nose congestion, mouth pain, mouth swelling, throat pain, throat swelling, other Gastrointestinal: denies: nausea, vomiting, abdominal pain, diarrhea, constipation, melena, hematochezia, other Genitourinary: denies: dysuria, frequency, incontinence, hematuria, retention, other Neurological: reports: weakness (Right hand). denies: numbness, incoordination, change in speech, confusion, seizures, other All Systems: All other systems reviewed; all pertinent +/- noted in HPI/Subj - Medication Medications: Active Medications Generic Name Dose Route Start Last Admin Trade Name Freq PRN Reason Stop Dose Admin Aspirin 325 mg 03/27/20 09:00 03/28/20 09:19 Aspirin 325 Mg Enteric Coated Tablet PO 325 mg DAILY MARCIN Administration Atorvastatin Calcium 40 mg 03/27/20 21:00 03/27/20 21:29 Atorvastatin Calcium 40 Mg Tab PO 40 mg HS MARCIN Administration Clonidine 0.1 mg 03/27/20 21:00 03/28/20 09:19 Clonidine 0.1 Mg Tab PO 0.1 mg BID MARCIN Administration Clonidine 0.1 mg 03/27/20 14:05 03/27/20 14:26 Clonidine 0.1 Mg Tab PO 0.1 mg Q4H PRN Administration SBP Greater Than 180 Cyanocobalamin 500 mcg 03/28/20 09:00 03/28/20 09:19 Cyanocobalamin (Vitamin B-12) 1,000 Mcg Tab PO 500 mcg DAILY MARCIN Administration Famotidine 20 mg 03/27/20 09:00 03/28/20 09:19 Famotidine 20 Mg Tab PO 20 mg DAILY MARCIN Administration Hydralazine HCl 10 mg 03/27/20 22:46 03/27/20 22:56 Hydralazine 20 Mg/Ml Vial SLOW IVP 10 mg Q4H PRN Administration SBP < 180 Insulin Human Lispro 0 units 03/26/20 21:15 03/28/20 06:07 Humalog 300 Units/3 Ml Vial SC 2 unit .MODERATE SLIDING SC PRN Administration Moderate Correctional Scale Nifedipine 60 mg 03/28/20 09:00 03/28/20 09:19 Nifedipine Xl 60 Mg Tab PO 60 mg DAILY MARCIN Administration Sevelamer Carbonate 1,600 mg 03/27/20 17:00 03/28/20 13:25 Sevelamer Carbonate 800 Mg Tab PO 1,600 mg TID-WM MARCIN Administration Sodium Chloride 10 ml 03/26/20 21:12 03/27/20 07:54 Flush - Normal Saline 10 Ml Syringe IVF 10 ml PRN PRN Administration Saline Flush Terazosin HCl 2 mg 03/27/20 21:00 03/27/20 21:29 Terazosin Hcl 1 Mg Cap PO 2 mg HS MARCIN Administration - Exam General Appearance: awake alert Eye: PERRL ENT: normocephalic atraumatic Neck: supple Respiratory: CTAB Cardiovascular: RRR Gastrointestinal: soft Extremities: no cyanosis Skin: normal turgor Neurological: CN's grossly intact, no new deficit Musculoskeletal: normal tone, no muscle wasting PSYCH: normal affect, normal behavior, A&O x 3 Results - Labs Result Diagrams: 03/28/20 07:46 03/28/20 05:05 Lab results: WBC 8.2 thou/uL (4.8-10.8) 03/28/20 07:46 Hgb 11.3 g/dL (12.0-16.0) L 03/28/20 07:46 Hct 34.0 % (36.0-47.0) L 03/28/20 07:46 MCV 100.0 fL (78.0-98.0) H 03/28/20 07:46 Plt Count 149 thou/uL (130-400) 03/28/20 07:46 Neutrophils % 75.4 % (42.0-75.0) H 03/28/20 07:46 Sodium 137 mmol/L (136-145) 03/28/20 05:05 Potassium 4.4 mmol/L (3.5-5.1) 03/28/20 05:05 Chloride 98 mmol/L (98-107) 03/28/20 05:05 Carbon Dioxide 24 mmol/L (23-31) 03/28/20 05:05 BUN 26 mg/dL (9.8-20.1) H 03/28/20 05:05 Creatinine 4.93 mg/dL (0.6-1.1) H 03/28/20 05:05 Glucose 162 mg/dL (83-110) H 03/28/20 05:05 Calcium 8.7 mg/dL (7.8-10.44) 03/28/20 05:05 Total Bilirubin 0.6 mg/dL (0.2-1.2) 03/26/20 18:50 AST 20 U/L (5-34) 03/26/20 18:50 ALT 20 U/L (8-55) 03/26/20 18:50 Alkaline Phosphatase 84 U/L (40-110) 03/26/20 18:50 CK-MB (CK-2) 3.7 ng/mL (0-6.6) 03/26/20 18:50 Troponin I 0.037 ng/mL (< 0.028) H 03/27/20 07:06 Serum Total Protein 7.0 g/dL (6.0-8.3) 03/26/20 18:50 Albumin 3.9 g/dL (3.4-4.8) 03/26/20 18:50 Urine Ketones Negative mg/dL (Negative) 03/26/20 05:10 Urine Blood Trace (Negative) A 03/26/20 05:10 Urine Nitrite Negative (Negative) 03/26/20 05:10 Ur Leukocyte Esterase 250 Roxie/uL (Negative) A 03/26/20 05:10 Urine RBC 0-3 HPF (0-3) 03/26/20 05:10 Urine WBC 7-10 HPF (0-3) A 03/26/20 05:10 Ur Squamous Epith Cells 11-20 HPF (0-3) A 03/26/20 05:10 Urine Bacteria 1+ HPF (None Seen) A 03/26/20 05:10 - Radiology Interpretation MRI - head Additional Comment: MRI of the head is consistent with acute infarction in the left frontal lobe and also along the precentral gyrus. PN A/P (1) Acute CVA (cerebrovascular accident) Code(s): I63.9 - CEREBRAL INFARCTION, UNSPECIFIED Status: Acute (2) Atrial fibrillation Code(s): I48.91 - UNSPECIFIED ATRIAL FIBRILLATION Status: Chronic (3) CAD (coronary artery disease) Code(s): I25.10 - ATHSCL HEART DISEASE OF [place] CORONARY ARTERY W/O ANG PCTRS Status: Chronic (4) DM2 (diabetes mellitus, type 2) Status: Chronic (5) HTN (hypertension) Code(s): I10 - ESSENTIAL (PRIMARY) HYPERTENSION Status: Chronic (6) Aortic stenosis Code(s): I35.0 - NONRHEUMATIC AORTIC (VALVE) STENOSIS Status: Acute Qualifiers: Cardiac valve disease etiology: etiology unspecified Qualified Code(s): I35.0 - Nonrheumatic aortic (valve) stenosis (7) S/P total hip arthroplasty Code(s): Z96.649 - PRESENCE OF UNSPECIFIED ARTIFICIAL HIP JOINT Status: Acute (8) Status post coronary artery bypass graft Code(s): Z95.1 - PRESENCE OF AORTOCORONARY BYPASS GRAFT Status: Acute (9) Anemia in chronic kidney disease Code(s): N18.9 - CHRONIC KIDNEY DISEASE, UNSPECIFIED; D63.1 - ANEMIA IN CHRONIC KIDNEY DISEASE Status: Chronic Qualifiers: Chronic kidney disease stage: on chronic dialysis Qualified Code(s): N18.6 - End stage renal disease; D63.1 - Anemia in chronic kidney disease; Z99.2 - Dependence on renal dialysis (10) ESRD (end stage renal disease) Code(s): N18.6 - END STAGE RENAL DISEASE Status: Chronic (11) Type 2 diabetes mellitus Status: Chronic Qualifiers: Diabetes mellitus termination clerk insulin use: with assisted use Diabetes mellitus complication status: with kidney complications Diabetes mellitus complication detail: with chronic kidney disease Chronic kidney disease stage: on chronic dialysis Qualified Code(s): E11.22 - Type 2 diabetes mellitus with diabetic chronic kidney disease; N18.6 - End stage renal disease; Z79.4 - [facility] (current) use of insulin; Z99.2 - Dependence on renal dialysis - Plan Daily Plan: PT/OT, speech therapy, DVT proph w/SCDs Based Raphael is a 74-year-old female with history significant for hypertension, hyperlipidemia, atrial fibrillation and aortic stenosis presented with strokelike symptoms of right upper and lower extremity weakness which is now resolved but she still has some persistent mild right hand weakness. Patient feels much better today. MRI of the brain consistent with acute infarction. MRI of the brain reviewed which was consistent with acute infarction in the left frontal lobe EEG reviewed which was negative for seizure activity. 2D echo showed normal ejection fraction. No thrombus or PFO. Telemetryatrial fibrillationconsider cardiology input. Neurochecks every 4 hours. Continue high intensity statin for secondary stroke prevention. Patient was on aspirin 81 mg at home so can increase it to full dose aspirin for secondary stroke prevention. Continue home medications. Permissive control of blood pressure at this time. Strict control of blood glucose. PT/OT/speech. Continue medical management per primary team and nephrology. Plan discussed in detail with the patient and the nursing staff.
--- NOTE | 2020-03-28 17:29 | PDOC.HOSPP ---
- Subjective Encounter Date: 03/28/20 Encounter Time: 10:30 Subjective: Patient seen and examined for acute CVA. Denies any chest pain or shortness of breath. No new focal deficit. No fever or chills reported. - Objective Vital Signs & Weight: Vital Signs (12 hours) Temp Pulse Pulse Pulse Pulse Resp BP 03/28/20 15:52 98.1 F 78 16 03/28/20 11:45 98.1 F 78 18 03/28/20 08:53 79 79 178/82 H 03/28/20 08:49 78 80 80 220/78 H 03/28/20 07:35 98.2 F 91 16 BP BP BP Pulse Ox 03/28/20 15:52 166/80 H 94 L 03/28/20 11:45 167/77 H 94 L 03/28/20 08:53 190/81 H 03/28/20 08:49 139/65 192/78 H 03/28/20 07:35 178/82 H 90 L Weight Weight 176 lb 2.389 oz I&O: 03/27/20 03/28/20 03/29/20 06:59 06:59 06:59 Intake Total 400 Output Total 200 2700 Balance -200 -2300 Result Diagrams: 03/28/20 07:46 03/28/20 05:05 Additional Labs: Accuchecks 03/28/20 03/28/20 03/27/20 10:44 05:40 21:00 POC Glucose 136 H 176 H 159 H EKG Reviewed by me: Yes (Atrial fibrillation on telemetry) Hospitalist ROS - Review of Systems Respiratory: denies: cough, dry, shortness of breath, hemoptysis, SOB with excertion, pleuritic pain, sputum, wheezing, other Cardiovascular: denies: chest pain, palpitations, orthopnea, paroxysmal noc. dyspnea, edema, light headedness, other - Medication Medications: Active Medications Generic Name Dose Route Start Last Admin Trade Name Freq PRN Reason Stop Dose Admin Aspirin 325 mg 03/27/20 09:00 03/28/20 09:19 Aspirin 325 Mg Enteric Coated Tablet PO 325 mg DAILY MARCIN Administration Atorvastatin Calcium 40 mg 03/27/20 21:00 03/27/20 21:29 Atorvastatin Calcium 40 Mg Tab PO 40 mg HS MARCIN Administration Clonidine 0.1 mg 03/27/20 21:00 03/28/20 09:19 Clonidine 0.1 Mg Tab PO 0.1 mg BID MARCIN Administration Clonidine 0.1 mg 03/27/20 14:05 03/27/20 14:26 Clonidine 0.1 Mg Tab PO 0.1 mg Q4H PRN Administration SBP Greater Than 180 Cyanocobalamin 500 mcg 03/28/20 09:00 03/28/20 09:19 Cyanocobalamin (Vitamin B-12) 1,000 Mcg Tab PO 500 mcg DAILY MARCIN Administration Famotidine 20 mg 03/27/20 09:00 03/28/20 09:19 Famotidine 20 Mg Tab PO 20 mg DAILY MARCIN Administration Hydralazine HCl 10 mg 03/27/20 22:46 03/27/20 22:56 Hydralazine 20 Mg/Ml Vial SLOW IVP 10 mg Q4H PRN Administration SBP < 180 Insulin Human Lispro 0 units 03/26/20 21:15 03/28/20 06:07 Humalog 300 Units/3 Ml Vial SC 2 unit .MODERATE SLIDING SC PRN Administration Moderate Correctional Scale Nifedipine 60 mg 03/28/20 09:00 03/28/20 09:19 Nifedipine Xl 60 Mg Tab PO 60 mg DAILY MARCIN Administration Sevelamer Carbonate 1,600 mg 03/27/20 17:00 03/28/20 13:25 Sevelamer Carbonate 800 Mg Tab PO 1,600 mg TID-WM MARCIN Administration Sodium Chloride 10 ml 03/26/20 21:12 03/27/20 07:54 Flush - Normal Saline 10 Ml Syringe IVF 10 ml PRN PRN Administration Saline Flush Terazosin HCl 2 mg 03/27/20 21:00 03/27/20 21:29 Terazosin Hcl 1 Mg Cap PO 2 mg HS MARCIN Administration - Exam General Appearance: NAD Neck: supple, no JVD Heart: no rubs, irregular Respiratory: no wheezes, no rales Gastrointestinal: soft, non-distended, no guarding, no rigidity Extremities: no cyanosis Neurological: no new deficit Hosp A/P - Plan DVT proph w/SCDs 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 Continue statins. Continue clonidine, isosorbide dinitrate, Procardia XL and Terazosin. Continue sliding scale. Restart losartan continue physical therapy occupational therapy. Dialysis per nephrology. Continue modified diet. Await cardiology input
[2020-03-28] MEDS: Atorvastatin Calcium 40 MG TAB PO SCH (20:36)
[2020-03-28] MEDS: Terazosin HCl 1 MG CAP PO SCH (20:36)
[2020-03-29 05:08] LABS: #Eosinphils 0.3 thou/uL (0.0-0.7); #Lymphocytes 1.2 thou/uL (1.20-3.40); #Monocytes 0.6 thou/uL (0.11-0.59); #Neutrophils 5.3 thou/uL (1.40-6.50); %Basophils 0.4 % (0.0-1.0); %Eosinophils 3.7 % (0.0-10.0); %Lymphocytes 16.3 % (21.0-51.0); %Monocytes 8.3 % (0.0-10.0); %Neutrophils 71.3 % (42.0-75.0); Hemoglobin 11.1 g/dL (12.0-16.0); Mean Corpuscular HGB CONC 34.5 g/dL (32.0-36.0); Mean Corpuscular Hemoglobin 34.2 pg (27.0-31.0); Mean Corpuscular Volume 99.4 fL (78.0-98.0); Mean Platelet Volume 7.8 fL (7.4-10.4); Platelet Count 160 thou/uL (130-400); RBC Distribution Width 14.9 % (11.5-14.5); Red Blood Cell (RBC) Count 3.25 mill/uL (4.20-5.40); White Blood Cell (WBC) Count 7.4 thou/uL (4.8-10.8)
[2020-03-29 05:30] LABS: Anion Gap 20 mmol/L (10-20); BUN (Urea Nitrogen) 39 mg/dL (9.8-20.1); Calc. Creatinine Clearance 9 mL/min (70-130); Calcium 8.2 mg/dL (7.8-10.44); Carbon Dioxide 20 mmol/L (23-31); Chloride 100 mmol/L (98-107); Glucose 129 mg/dL (83-110); Potassium 4.9 mmol/L (3.5-5.1); Sodium 135 mmol/L (136-145)
--- NOTE | 2020-03-29 08:49 | PRG ---
DATE OF SERVICE: 03/29/2020 SUBJECTIVE: Ms. Simms is a 74-year-old white female, who was admitted for CVA and followed up by the [facility] for her maintenance hemodialysis. She has been scheduled for dialysis this morning. Plan to remove around 2 to 3 L of fluid. Her CVA is actually much improved. She is now able to move her right upper extremity. No complaints of chest pain or shortness of breath. OBJECTIVE: VITAL SIGNS: Blood pressure 190/90, heart rate 75, respiratory rate 16, temperature 98.1, O2 saturation 94%. GENERAL: Awake, alert, comfortable, not in distress. SKIN: Adequate turgor. HEENT: Pinkish conjunctivae. Anicteric sclerae. No neck mass. No carotid bruits. No JVD. CHEST: No deformities. LUNGS: Clear breath sounds. No wheezing. No crackles. HEART: Normal sinus rhythm. No murmur. No gallops. No rubs. ABDOMEN: Globular, soft, nontender. No masses. EXTREMITIES: No edema. No deformities. NEUROLOGIC: The patient is coherent and moving all extremities. MEDICATIONS: Medications of March 29, 2020, was reviewed. LABORATORY DATA: Laboratories of March 29, 2020; white count 7.4, hemoglobin 11.1. Sodium 135, potassium 4.9, chloride 100, carbon dioxide 20, BUN 39, creatinine 6.76, glucose 129, calcium 8.2. ASSESSMENT AND PLAN: 1. End-stage renal disease, stable. We will continue current Thursday, , Thursday dialysis. Again, fluid removal as tolerated by the patient. We will target between 2 and 3 L of fluid today. 2. Status post cerebrovascular accident-clinically improving. The patient is able to move her right upper extremity without any difficulty. In addition, she is not slurring anymore. 3. Chronic anemia-there is no indication for any Epogen initiation at the present time. 4. Hypertension. The patient currently on nifedipine at 60 mg tablet once a day, which was started yesterday for better BP control. 5. In addition, she will continue terazosin at the current dose. Job ID: [id number]
[2020-03-29] MEDS: Sevelamer Carbonate 800 MG TAB PO SCH ×3 (09:03→17:18)
[2020-03-29] MEDS: Famotidine 20 MG TAB PO SCH (09:04)
[2020-03-29] MEDS: Cyanocobalamin (Vitamin B-12) 1,000 MCG TAB PO SCH (09:04)
[2020-03-29] MEDS: Losartan 25 MG TAB PO SCH (09:04)
[2020-03-29] MEDS: Aspirin 325 mg Enteric Coated Tablet PO SCH (09:04)
[2020-03-29] MEDS: NIFEdipine XL 60 MG TAB PO SCH (09:05)
[2020-03-29] MEDS: cloNIDine 0.1 MG TAB PO SCH ×2 (09:05→22:04)
[2020-03-29] MEDS ORDERED: Amiodarone 200 MG TAB PO SCH ×3 (09:38→15:00)
--- NOTE | 2020-03-29 09:50 | CON ---
DATE OF CONSULTATION: 03/29/2020 REASON FOR CONSULTATION: Stroke in the setting of atrial fibrillation. HISTORY OF PRESENT ILLNESS: Ms. Lena Simms is a delightful 74-year-old woman. She has a history of aortic valve replacement with a bioprosthetic valve and single-vessel bypass surgery in 2013. Since then, the patient has developed end-stage renal disease and is on dialysis. The patient was admitted with an intracerebral hemorrhage in August of this year. At that time, apparently the patient was only taking 81 mg aspirin. From what I can tell, she was taken off aspirin for some time, then placed back on aspirin. Unfortunate this time, she came in with a recurrent stroke. This time, it looks like it is cardioembolic from newly diagnosed atrial fibrillation. The patient has recovered quite a bit since had been coming to the hospital here. The patient is not having chest pain, pressure, heaviness, or squeezing. MEDICATIONS: At home, she was taking, 1. Aspirin. 2. Nifedipine. 3. Clonidine. 4. Isosorbide. 5. Terazosin. 6. Vitamin D. 7. Renvela. ALLERGIES: TO PENICILLIN. PAST MEDICAL HISTORY: Atrial fibrillation, which looks like it is newly diagnosed. Coronary artery disease, status post bypass. Previous aortic valve replacement, bioprosthetic. Previous cerebral hemorrhage with no residual defects. PAST SURGICAL HISTORY: As outlined above. SOCIAL HISTORY: Lives alone. No alcohol or drugs. No smoking. PHYSICAL EXAMINATION: GENERAL: This is a pleasant elderly woman, in no distress. VITAL SIGNS: Blood pressure 190/90, pulse 70 and it is irregularly irregular. NECK: Neck veins normal. Carotid normal upstrokes. LUNGS: Clear. CARDIAC: Irregularly irregular. ABDOMEN: Soft and nontender. EXTREMITIES: Warm and dry. No clubbing or cyanosis. There is no edema. DIAGNOSTIC STUDIES: She had carotid Dopplers done. No obstructions. Brain MRI, acute infarct left frontal lobe involving precentral and probably postcentral gyrus in the left middle cerebral artery distribution. ASSESSMENT: 1. Previous aortic valve replacement and single-vessel bypass with normally functioning aortic valve. 2. Some elevation of pulmonary artery pressure. 3. Newly diagnosed atrial fibrillation. 4. History of intracerebral hemorrhage. 5. Stroke, probably related to cardioembolic source at this time. PLAN: Very difficult situation. Unfortunately, long-term anticoagulation will probably result in significant risk of recurrent intracerebral bleeding. We will discuss with Electrophysiology, consideration for? Watchman device with short term anticoagulation, difficult decision. We will continue to follow with you. Job ID: [id number]
--- NOTE | 2020-03-29 10:56 | CON ---
DATE OF CONSULTATION: 03/29/2020 REASON FOR CONSULTATION: I am seeing Ms. Simms at our [facility] telemetry floor for electrophysiology consultation. Her problems are: 1. Subacute CVA/RIND with right facial droop. a. Brain MRI from 03/27/2020 shows acute left frontal lobe infarct in the left MCA distribution and moderately severe chronic ischemic white matter changes. 2. Newly found persisting atrial fibrillation. 3. History of valvular heart disease. a. Status post bioprosthetic aortic valve replacement and single-vessel bypass surgery in 2013. b. 2D echo from 03/27/2020 showed LVEF 55% to 60%. No significant aortic regurgitation or stenosis. Mild to moderate MR. Moderately enlarged left atrium. Moderate pulmonary pressure elevation. 4. End-stage renal disease, on hemodialysis. ALLERGIES: PENICILLINS. MEDICATIONS: At home, included: 1. Terazosin. 2. Isosorbide dinitrate. 3. Clonidine. 4. Nifedipine. 5. Aspirin. 6. Vitamin D3. 7. Renvela. 8. Tresiba. SUBJECTIVE: Ms. Simms was admitted on the with complaints of right finger numbness and facial droop. Right hand weakness is also felt. She was evaluated in the ER with findings as above. As she has history of intracranial hemorrhage, she did not receive tPA. Her symptoms nevertheless subsided. Currently, she has no more neurological deficit. She does not pass out. No CHF like symptoms. She has mild palpitations at times, but not severe. No fever, chills, or cough. REVIEW OF SYSTEMS: Rest of 12-point review of system otherwise unremarkable. PAST MEDICAL HISTORY: As above, also has: 1. History of type 2 diabetes. 2. Hypertension. 3. 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 This was noted in 08/2019. This possibly related to poor hypertension control, has not resolved. She was on aspirin at that time. She has no other bleeding issues. No history of recent coronary artery disease or angina. She has seen Dr. Plascencia for peripheral vascular disease and outpatient procedure is planned for the future. SOCIAL HISTORY: The patient never smoked. Denies EtOH or drug abuse. Lives alone. She is retired. SURGICAL HISTORY: Significant for: 1. Back surgery. 2. Left hip surgery. 3. Right upper extremity dialysis fistula placement. 4. CABG x1 vessel with a bioprosthetic AVR for aortic stenosis in 2013. FAMILY HISTORY: Noncontributory. OBJECTIVE DATA: VITAL SIGNS: Blood pressure is 190/90, heart rate 75, respirations 16, and temperature 98.1. GENERAL: This is an alert and oriented woman, in no apparent distress. NECK: Supple. Jugular veins not distended. CHEST: Coarse without crackles. HEART: Sounds are irregularly irregular. S1 is variable. No murmur or gallop. ABDOMEN: Benign. Bowel sounds positive. EXTREMITIES: Lower extremities without edema, clubbing, or cyanosis. Pulses are adequate. NEUROLOGIC: The patient is nonfocal. MUSCULOSKELETAL: Without joint swelling or deformity. SKIN: Without rash. DATABASE: The EKG is reviewed, revealing atrial fibrillation with rates of 113 beats per minute, narrow QRS is noted, QTc is 406 millisecond. Telemetry strips revealed complete atrial fibrillation improving ventricular rate control. LABORATORY DATA: White cell count is 7.4, hemoglobin is 11.1, and platelet count is 160. Sodium 135, potassium 4.9, BUN is 39, and creatinine is 6.76. The brain MRI as noted above. A 2D echo also as noted above. ASSESSMENT AND PLAN: Ms. Simms is a 74-year-old woman with prior history of hypertension, diabetes, minor pontine hemorrhage noted in 08/2019, on aspirin alone. She also has chronic history of single-vessel bypass and bioprosthetic aortic valve replacement for aortic stenosis in 2013, but that has been stable and current echo reveals no significant bioprosthetic valve malfunction. The current cerebrovascular accident is high suspicious for atrial fibrillation related thromboembolism. She has not been recognized prior to this admit to have atrial fibrillation and has been only on aspirin for anticoagulation. Clearly, she would require higher dose of anticoagulation for prevention of further stroke. On the other hand, she carries a history of cerebrovascular accident, albeit there was a minor pontine hemorrhage, which is more typical for hypertensive disease related bleed. Nevertheless, future intracranial hemorrhage is , but I think recurrent ischemic thromboembolism is higher chance than that. Nevertheless, on long-term, she may benefit from consideration for a watchman device. I discussed briefly the rationale, risks, and benefits. She is interested and will plan to follow up with us in the office. In the meantime, she may benefit from reduced doses anticoagulant. Kavon could be a reasonable choice, although I would use likely half a dose, 2.5 mg twice a day. Atrial fibrillation currently persist. For now, ventricular rate control is recommended long-term after adequate anticoagulation, she could benefit for a LIV-guided cardioversion, possible rhythm suppression may be a consideration, although she is fairly asymptomatic. Discussed with Dr. Levy. Thank you for allowing me to participate in the care of this patient. Job ID: [id number]
--- NOTE | 2020-03-29 14:04 | PDOC.NEUPN ---
- Subjective Encounter Date: 03/29/20 Subjective: Ms. Byrant has been undergoing hemodialysis and denies any new complaints in the last 24 hours - Objective Vital Signs & Weight: Vital Signs (12 hours) Temp Pulse Resp BP Pulse Ox 03/29/20 08:00 98.1 F 75 16 190/90 H 94 L 03/29/20 04:15 82 178/70 H Weight Weight 176 lb 2.389 oz I&O: 03/28/20 03/29/20 03/30/20 06:59 06:59 06:59 Intake Total 400 840 Output Total 2700 Balance -2300 840 Result Diagrams: 03/29/20 04:49 03/29/20 04:49 Additional Labs: Accuchecks 03/29/20 03/29/20 03/28/20 10:35 05:26 20:37 POC Glucose 137 H 131 H 213 H 03/28/20 16:52 POC Glucose 128 H Radiology Reviewed by me: Yes EKG Reviewed by me: Yes ROS - Review of Systems Constitutional: denies: fever, chills, sweats, weakness, malaise, other Eyes: denies: pain, vision change, conjunctivae inflammation, eyelid inflammation, redness, other ENT: denies: ear pain, ear discharge, nose pain, nose discharge, nose congestion, mouth pain, mouth swelling, throat pain, throat swelling, other Cardiovascular: reports: AFIB Gastrointestinal: denies: nausea, vomiting, abdominal pain, diarrhea, constipation, melena, hematochezia, other Genitourinary: denies: dysuria, frequency, incontinence, hematuria, retention, other Musculoskeletal: denies: neck pain, shoulder pain, arm pain, back pain, hand pain, leg pain, foot pain, other Skin: denies: rash, lesions, umair, bruising, other Neurological: reports: weakness. denies: numbness, incoordination, change in speech, confusion, seizures (Right hand), other - Medication Medications: Active Medications Generic Name Dose Route Start Last Admin Trade Name Freq PRN Reason Stop Dose Admin Atorvastatin Calcium 40 mg 03/27/20 21:00 03/28/20 20:36 Atorvastatin Calcium 40 Mg Tab PO 40 mg HS MARCIN Administration Clonidine 0.1 mg 03/27/20 21:00 03/29/20 09:05 Clonidine 0.1 Mg Tab PO 0.1 mg BID MARCIN Administration Clonidine 0.1 mg 03/27/20 14:05 03/27/20 14:26 Clonidine 0.1 Mg Tab PO 0.1 mg Q4H PRN Administration SBP Greater Than 180 Cyanocobalamin 500 mcg 03/28/20 09:00 03/29/20 09:04 Cyanocobalamin (Vitamin B-12) 1,000 Mcg Tab PO 500 mcg DAILY MARCIN Administration Famotidine 20 mg 03/27/20 09:00 03/29/20 09:04 Famotidine 20 Mg Tab PO 20 mg DAILY MARCIN Administration Hydralazine HCl 10 mg 03/27/20 22:46 03/27/20 22:56 Hydralazine 20 Mg/Ml Vial SLOW IVP 10 mg Q4H PRN Administration SBP < 180 Insulin Human Lispro 0 units 03/26/20 21:15 03/28/20 06:07 Humalog 300 Units/3 Ml Vial SC 2 unit .MODERATE SLIDING SC PRN Administration Moderate Correctional Scale Insulin Human Lispro 0 units 03/26/20 21:15 03/28/20 20:38 Humalog 300 Units/3 Ml Vial SC 2 unit .BEDTIME SLIDING SC PRN Administration Bedtime Correctional Scale Losartan Potassium 100 mg 03/29/20 09:00 03/29/20 09:04 Losartan 25 Mg Tab PO 100 mg DAILY MARCIN Administration Nifedipine 60 mg 03/28/20 09:00 03/29/20 09:05 Nifedipine Xl 60 Mg Tab PO 60 mg DAILY MARCIN Administration Sevelamer Carbonate 1,600 mg 03/27/20 17:00 03/29/20 13:54 Sevelamer Carbonate 800 Mg Tab PO 1,600 mg TID-WM MARCIN Administration Sodium Chloride 10 ml 03/26/20 21:12 03/27/20 07:54 Flush - Normal Saline 10 Ml Syringe IVF 10 ml PRN PRN Administration Saline Flush Terazosin HCl 2 mg 03/27/20 21:00 03/28/20 20:36 Terazosin Hcl 1 Mg Cap PO 2 mg HS MARCIN Administration - Exam General Appearance: awake alert Eye: PERRL ENT: normocephalic atraumatic Neck: supple Respiratory: CTAB Cardiovascular: RRR Gastrointestinal: soft Extremities: no cyanosis Skin: normal turgor Neurological: CN's grossly intact, normal sensation to touch, no new deficit Musculoskeletal: normal tone, no muscle wasting PSYCH: normal affect, normal behavior, A&O x 3 Results - Labs Result Diagrams: 03/29/20 04:49 03/29/20 04:49 Lab results: WBC 7.4 thou/uL (4.8-10.8) 03/29/20 04:49 Hgb 11.1 g/dL (12.0-16.0) L 03/29/20 04:49 Hct 32.3 % (36.0-47.0) L 03/29/20 04:49 MCV 99.4 fL (78.0-98.0) H 03/29/20 04:49 Plt Count 160 thou/uL (130-400) 03/29/20 04:49 Neutrophils % 71.3 % (42.0-75.0) 03/29/20 04:49 Sodium 135 mmol/L (136-145) L 03/29/20 04:49 Potassium 4.9 mmol/L (3.5-5.1) 03/29/20 04:49 Chloride 100 mmol/L (98-107) 03/29/20 04:49 Carbon Dioxide 20 mmol/L (23-31) L 03/29/20 04:49 BUN 39 mg/dL (9.8-20.1) H 03/29/20 04:49 Creatinine 6.76 mg/dL (0.6-1.1) H 03/29/20 04:49 Glucose 129 mg/dL (83-110) H 03/29/20 04:49 Calcium 8.2 mg/dL (7.8-10.44) 03/29/20 04:49 Total Bilirubin 0.6 mg/dL (0.2-1.2) 03/26/20 18:50 AST 20 U/L (5-34) 03/26/20 18:50 ALT 20 U/L (8-55) 03/26/20 18:50 Alkaline Phosphatase 84 U/L (40-110) 03/26/20 18:50 CK-MB (CK-2) 3.7 ng/mL (0-6.6) 03/26/20 18:50 Troponin I 0.037 ng/mL (< 0.028) H 03/27/20 07:06 Serum Total Protein 7.0 g/dL (6.0-8.3) 03/26/20 18:50 Albumin 3.9 g/dL (3.4-4.8) 03/26/20 18:50 Urine Ketones Negative mg/dL (Negative) 03/26/20 05:10 Urine Blood Trace (Negative) A 03/26/20 05:10 Urine Nitrite Negative (Negative) 03/26/20 05:10 Ur Leukocyte Esterase 250 Roxie/uL (Negative) A 03/26/20 05:10 Urine RBC 0-3 HPF (0-3) 03/26/20 05:10 Urine WBC 7-10 HPF (0-3) A 03/26/20 05:10 Ur Squamous Epith Cells 11-20 HPF (0-3) A 03/26/20 05:10 Urine Bacteria 1+ HPF (None Seen) A 03/26/20 05:10 - EKG Interpretation EKG: Atrial fibrillation - Radiology Interpretation MRI - head Additional Comment: RI of the brain was consistent with acute infarction in the left frontal lobe PN A/P (1) Acute CVA (cerebrovascular accident) Code(s): I63.9 - CEREBRAL INFARCTION, UNSPECIFIED Status: Acute (2) Atrial fibrillation Code(s): I48.91 - UNSPECIFIED ATRIAL FIBRILLATION Status: Chronic (3) CAD (coronary artery disease) Code(s): I25.10 - ATHSCL HEART DISEASE OF [place] CORONARY ARTERY W/O ANG PCTRS Status: Chronic (4) DM2 (diabetes mellitus, type 2) Status: Chronic (5) HTN (hypertension) Code(s): I10 - ESSENTIAL (PRIMARY) HYPERTENSION Status: Chronic (6) Aortic stenosis Code(s): I35.0 - NONRHEUMATIC AORTIC (VALVE) STENOSIS Status: Acute Qualifiers: Cardiac valve disease etiology: etiology unspecified Qualified Code(s): I35.0 - Nonrheumatic aortic (valve) stenosis (7) S/P total hip arthroplasty Code(s): Z96.649 - PRESENCE OF UNSPECIFIED ARTIFICIAL HIP JOINT Status: Acute (8) Status post coronary artery bypass graft Code(s): Z95.1 - PRESENCE OF AORTOCORONARY BYPASS GRAFT Status: Acute (9) Anemia in chronic kidney disease Code(s): N18.9 - CHRONIC KIDNEY DISEASE, UNSPECIFIED; D63.1 - ANEMIA IN CHRONIC KIDNEY DISEASE Status: Chronic Qualifiers: Chronic kidney disease stage: on chronic dialysis Qualified Code(s): N18.6 - End stage renal disease; D63.1 - Anemia in chronic kidney disease; Z99.2 - Dependence on renal dialysis (10) ESRD (end stage renal disease) Code(s): N18.6 - END STAGE RENAL DISEASE Status: Chronic (11) Type 2 diabetes mellitus Status: Chronic Qualifiers: Diabetes mellitus correction insulin use: with correction use Diabetes mellitus complication status: with kidney complications Diabetes mellitus complication detail: with chronic kidney disease Chronic kidney disease stage: on chronic dialysis Qualified Code(s): E11.22 - Type 2 diabetes mellitus with diabetic chronic kidney disease; N18.6 - End stage renal disease; Z79.4 - penitentiary (current) use of insulin; Z99.2 - Dependence on renal dialysis - Plan Daily Plan: PT/OT, speech therapy, DVT proph w/SCDs Based Raphael is a 74-year-old female with history significant for hypertension, hyperlipidemia, atrial fibrillation and aortic stenosis presented with strokelike symptoms of right upper and lower extremity weakness which is now resolved but she still has some persistent mild right hand weakness. Patient feels much better today and is going dialysis. MRI of the brain consistent with acute infarction. MRI of the brain reviewed which was consistent with acute infarction in the left frontal lobe EEG reviewed which was negative for seizure activity. 2D echo showed normal ejection fraction. No thrombus or PFO. Telemetryatrial fibrillationaudiology on board. Suggested starting Eliquis 2.5 mg p.o. twice daily and discontinuing aspirin Neurochecks every 4 hours. Continue high intensity statin for secondary stroke prevention. Discontinue aspirin since patient will be started on Eliquis for atrial fibrillation and also for secondary stroke prevention Continue home medications. Permissive control of blood pressure at this time. Strict control of blood glucose. PT/OT/speech. Continue medical management per primary team and nephrology. Plan discussed in detail with the patient , nursing staff also with the primary attending Dr. Carballo.
--- NOTE | 2020-03-29 15:43 | PDOC.HOSPP ---
- Subjective Encounter Date: 03/29/20 Encounter Time: 11:00 Subjective: Patient seen and examined for acute CVA. Denies any new focal deficit. No chest pain or shortness of breath reported. - Objective Vital Signs & Weight: Vital Signs (12 hours) Temp Pulse Resp BP Pulse Ox 03/29/20 15:38 97.7 F 77 18 168/96 H 95 03/29/20 08:00 98.1 F 75 16 190/90 H 94 L 03/29/20 04:15 82 178/70 H Weight Weight 176 lb 2.389 oz I&O: 03/28/20 03/29/20 03/30/20 06:59 06:59 06:59 Intake Total 400 840 Output Total 2700 Balance -2300 840 Result Diagrams: 03/29/20 04:49 03/29/20 04:49 Additional Labs: Accuchecks 03/29/20 03/29/20 03/28/20 10:35 05:26 20:37 POC Glucose 137 H 131 H 213 H 03/28/20 16:52 POC Glucose 128 H EKG Reviewed by me: Yes (Atrial fibrillation on telemetry) Hospitalist ROS - Review of Systems Respiratory: denies: cough, dry, shortness of breath, hemoptysis, SOB with excertion, pleuritic pain, sputum, wheezing, other Cardiovascular: denies: chest pain, palpitations, orthopnea, paroxysmal noc. dyspnea, edema, light headedness, other - Medication Medications: Active Medications Generic Name Dose Route Start Last Admin Trade Name Freq PRN Reason Stop Dose Admin Atorvastatin Calcium 40 mg 03/27/20 21:00 03/28/20 20:36 Atorvastatin Calcium 40 Mg Tab PO 40 mg HS MARCIN Administration Clonidine 0.1 mg 03/27/20 21:00 03/29/20 09:05 Clonidine 0.1 Mg Tab PO 0.1 mg BID MARCIN Administration Clonidine 0.1 mg 03/27/20 14:05 03/27/20 14:26 Clonidine 0.1 Mg Tab PO 0.1 mg Q4H PRN Administration SBP Greater Than 180 Cyanocobalamin 500 mcg 03/28/20 09:00 03/29/20 09:04 Cyanocobalamin (Vitamin B-12) 1,000 Mcg Tab PO 500 mcg DAILY MARCIN Administration Famotidine 20 mg 03/27/20 09:00 03/29/20 09:04 Famotidine 20 Mg Tab PO 20 mg DAILY MARCIN Administration Hydralazine HCl 10 mg 03/27/20 22:46 03/27/20 22:56 Hydralazine 20 Mg/Ml Vial SLOW IVP 10 mg Q4H PRN Administration SBP < 180 Insulin Human Lispro 0 units 03/26/20 21:15 03/28/20 06:07 Humalog 300 Units/3 Ml Vial SC 2 unit .MODERATE SLIDING SC PRN Administration Moderate Correctional Scale Insulin Human Lispro 0 units 03/26/20 21:15 03/28/20 20:38 Humalog 300 Units/3 Ml Vial SC 2 unit .BEDTIME SLIDING SC PRN Administration Bedtime Correctional Scale Losartan Potassium 100 mg 03/29/20 09:00 03/29/20 09:04 Losartan 25 Mg Tab PO 100 mg DAILY MARCIN Administration Nifedipine 60 mg 03/28/20 09:00 03/29/20 09:05 Nifedipine Xl 60 Mg Tab PO 60 mg DAILY MARCIN Administration Sevelamer Carbonate 1,600 mg 03/27/20 17:00 03/29/20 13:54 Sevelamer Carbonate 800 Mg Tab PO 1,600 mg TID-WM MARCIN Administration Sodium Chloride 10 ml 03/26/20 21:12 03/27/20 07:54 Flush - Normal Saline 10 Ml Syringe IVF 10 ml PRN PRN Administration Saline Flush Terazosin HCl 2 mg 03/27/20 21:00 03/28/20 20:36 Terazosin Hcl 1 Mg Cap PO 2 mg HS MARCIN Administration - Exam General Appearance: NAD Heart: RRR, no gallops Respiratory: no wheezes, no ronchi Gastrointestinal: soft, non-distended (GI) Extremities: no cyanosis Neurological: no new deficit Psychiatric: normal affect, A&O x 3 Hosp A/P - Plan DVT proph w/SCDs 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 Patient has history of intracranial bleed earlier this year. There is no contraindication to start anticoagulation per neurosurgery. Case discussed with cardiology and neurology as well. Patient will be started on Eliquis 2.5 mg twice daily. Aspirin has been discontinued. Continue Procardia XL, isosorbide dinitrate. Increase clonidine to 0.1 mg 3 times daily. Continue dialysis per nephrology. Patient understands the risk associated with anticoagulation not limited to life- threatening complication including . Await inpatient rehab evaluation. Continue other medications as above
[2020-03-29] MEDS ORDERED: cloNIDine 0.1 MG TAB PO SCH (15:45)
[2020-03-29] MEDS ORDERED: Isosorbide Dinitrate 20 MG TAB PO SCH (16:30)
[2020-03-29] MEDS: Terazosin HCl 1 MG CAP PO SCH (22:01)
[2020-03-29] MEDS: Apixaban 2.5 MG TAB PO SCH (22:05)
[2020-03-29] MEDS: Atorvastatin Calcium 40 MG TAB PO SCH (22:05)
[2020-03-30 05:03] LABS: #Eosinphils 0.2 thou/uL (0.0-0.7); #Lymphocytes 1.4 thou/uL (1.20-3.40); #Monocytes 0.6 thou/uL (0.11-0.59); #Neutrophils 5.1 thou/uL (1.40-6.50); %Basophils 0.7 % (0.0-1.0); %Eosinophils 3.2 % (0.0-10.0); %Lymphocytes 19.2 % (21.0-51.0); %Monocytes 8.2 % (0.0-10.0); %Neutrophils 68.7 % (42.0-75.0); Hemoglobin 11.6 g/dL (12.0-16.0); Mean Corpuscular HGB CONC 34.3 g/dL (32.0-36.0); Mean Corpuscular Hemoglobin 33.7 pg (27.0-31.0); Mean Corpuscular Volume 98.4 fL (78.0-98.0); Mean Platelet Volume 7.7 fL (7.4-10.4); Platelet Count 188 thou/uL (130-400); RBC Distribution Width 14.9 % (11.5-14.5); Red Blood Cell (RBC) Count 3.44 mill/uL (4.20-5.40); White Blood Cell (WBC) Count 7.4 thou/uL (4.8-10.8)
[2020-03-30 05:28] LABS: Anion Gap 19 mmol/L (10-20); BUN (Urea Nitrogen) 24 mg/dL (9.8-20.1); Calc. Creatinine Clearance 13 mL/min (70-130); Calcium 8.8 mg/dL (7.8-10.44); Carbon Dioxide 25 mmol/L (23-31); Chloride 98 mmol/L (98-107); Glucose 143 mg/dL (83-110); Potassium 4.5 mmol/L (3.5-5.1); Sodium 137 mmol/L (136-145)
[2020-03-30] MEDS: Famotidine 20 MG TAB PO SCH (08:21)
[2020-03-30] MEDS: NIFEdipine XL 60 MG TAB PO SCH (08:21)
[2020-03-30] MEDS: Losartan 25 MG TAB PO SCH (08:22)
[2020-03-30] MEDS: Sevelamer Carbonate 800 MG TAB PO SCH ×2 (08:22→11:46)
[2020-03-30] MEDS: cloNIDine 0.1 MG TAB PO SCH ×2 (08:22→15:36)
[2020-03-30] MEDS: Cyanocobalamin (Vitamin B-12) 1,000 MCG TAB PO SCH (08:23)
[2020-03-30] MEDS ORDERED: Isosorbide Dinitrate 20 MG TAB PO SCH (09:00)
--- NOTE | 2020-03-30 09:09 | PRG ---
DATE OF SERVICE: 03/30/2020 SUBJECTIVE: Ms. Simms is a 74-year-old white female with ESRD and admitted for CVA. Doing well. Neurologically improving. We are following her up for her maintenance hemodialysis. She underwent hemodialysis without any difficulty yesterday. She voices no new complaints. No chest pain or shortness of breath. OBJECTIVE: VITAL SIGNS: Blood pressure ranging from 164/82 to 183/91, heart rate 68, respiratory rate 16, temperature 97.6, O2 saturation 97%. GENERAL: Awake, sitting, comfortable, not in distress. SKIN: Adequate turgor. HEENT: Pinkish conjunctivae. Anicteric sclerae. NECK: No neck mass. No carotid bruits. No JVD. CHEST: No deformities. LUNGS: Clear breath sounds. No wheezing. No crackles. HEART: Normal sinus rhythm. No murmurs. No gallops. No rubs. ABDOMEN: Globular, soft, nontender. No masses. EXTREMITIES: No edema. MEDICATIONS: Medications of March 30, 2020, was reviewed. LABORATORY DATA: Laboratories of March 30, 2020; white count 7.4, hemoglobin 11.6. Sodium 137, potassium 4.5, chloride 98, carbon dioxide 25, BUN 24, creatinine 4.96, glucose 143, calcium 8.8. ASSESSMENT AND PLAN: 1. End-stage renal disease, stable. The patient tolerating current hemodialysis regimen. Continue Thursday, , Thursday dialysis regimen. No indication for any emergency dialysis today. Potassium is normal and the patient is euvolemic. 2. Status post cerebrovascular accident. Continue supportive care. Neurologically improving. The patient able to move her right upper extremity. Job ID: [id number]
--- NOTE | 2020-03-30 09:22 | PRG ---
DATE OF SERVICE: 03/30/2020 SUBJECTIVE: Weekly followup. Ms. Simms is awake and alert, feeling well. OBJECTIVE: VITAL SIGNS: Her blood pressure is high 180/90, pulse 70. LUNGS: Clear. CARDIAC: Normal S1, normal S2. ABDOMEN: Soft, nontender. ASSESSMENT: 1. Recent embolic stroke. 2. End-stage renal disease. 3. History of intracranial hemorrhage, although looking back, it looks like it is probably related to uncontrolled hypertension. 4. The patient is now in persistent atrial fibrillation. PLAN: 1. Increase Procardia XL to 90 mg a day. 2. Spoke with Dr. Boudreaux who has elected to put her on low-dose apixaban. 3. Stop aspirin. 4. Ultimately consideration for Watchman. Job ID: [id number]
[2020-03-30] MEDS: Apixaban 2.5 MG TAB PO SCH (10:25)
[2020-03-30 10:31] VITALS: TEMP 98.2
[2020-03-30] MEDS: HumaLOG 300 UNITS/3 ML VIAL SC PRN (11:46)
--- NOTE | 2020-03-30 12:52 | PDOC.NEUPN ---
- Subjective Encounter Date: 03/30/20 Subjective: Patient feels much better today and denies any new complaints in the last 24 hours. - Objective Vital Signs & Weight: Vital Signs (12 hours) Temp Pulse Pulse Resp BP BP Pulse Ox 03/30/20 10:30 98.2 F 76 18 132/65 97 03/30/20 08:41 83 146/79 H 03/30/20 07:56 97.6 F 68 16 183/91 H 97 03/30/20 04:00 98.0 F 78 16 164/82 H 98 Weight Weight 176 lb 2.389 oz I&O: 03/29/20 03/30/20 03/31/20 06:59 06:59 06:59 Intake Total 1080 Balance 1080 Result Diagrams: 03/30/20 04:49 03/30/20 04:49 Additional Labs: Accuchecks 03/30/20 03/29/20 03/29/20 10:30 21:17 16:40 POC Glucose 213 H 149 H 144 H Radiology Reviewed by me: Yes EKG Reviewed by me: Yes ROS - Review of Systems Constitutional: denies: fever, chills, sweats, weakness, malaise, other Eyes: denies: pain, vision change, conjunctivae inflammation, eyelid inflammation, redness, other ENT: denies: ear pain, ear discharge, nose pain, nose discharge, nose congestion, mouth pain, mouth swelling, throat pain, throat swelling, other Gastrointestinal: denies: nausea, vomiting, abdominal pain, diarrhea, constipation, melena, hematochezia, other Skin: denies: rash, lesions, umair, bruising, other Neurological: denies: weakness, numbness, incoordination, change in speech, confusion, seizures, other - Medication Medications: Active Medications Generic Name Dose Route Start Last Admin Trade Name Freq PRN Reason Stop Dose Admin Apixaban 2.5 mg 03/29/20 21:00 03/30/20 10:25 Apixaban 2.5 Mg Tab PO 2.5 mg BID MARCIN Administration Atorvastatin Calcium 40 mg 03/27/20 21:00 03/29/20 22:05 Atorvastatin Calcium 40 Mg Tab PO 40 mg HS MARCIN Administration Clonidine 0.1 mg 03/27/20 14:05 03/27/20 14:26 Clonidine 0.1 Mg Tab PO 0.1 mg Q4H PRN Administration SBP Greater Than 180 Clonidine 0.1 mg 03/29/20 21:00 03/30/20 08:22 Clonidine 0.1 Mg Tab PO 0.1 mg TID MARCIN Administration Cyanocobalamin 500 mcg 03/28/20 09:00 03/30/20 08:23 Cyanocobalamin (Vitamin B-12) 1,000 Mcg Tab PO 500 mcg DAILY MARCIN Administration Famotidine 20 mg 03/27/20 09:00 03/30/20 08:21 Famotidine 20 Mg Tab PO 20 mg DAILY MARCIN Administration Hydralazine HCl 10 mg 03/27/20 22:46 03/27/20 22:56 Hydralazine 20 Mg/Ml Vial SLOW IVP 10 mg Q4H PRN Administration SBP < 180 Insulin Human Lispro 0 units 03/26/20 21:15 03/30/20 11:46 Humalog 300 Units/3 Ml Vial SC 4 unit .MODERATE SLIDING SC PRN Administration Moderate Correctional Scale Insulin Human Lispro 0 units 03/26/20 21:15 03/28/20 20:38 Humalog 300 Units/3 Ml Vial SC 2 unit .BEDTIME SLIDING SC PRN Administration Bedtime Correctional Scale Isosorbide Dinitrate 20 mg 03/30/20 09:00 03/30/20 08:22 Isosorbide Dinitrate 20 Mg Tab PO 20 mg BID MARCIN Administration Losartan Potassium 100 mg 03/29/20 09:00 03/30/20 08:22 Losartan 25 Mg Tab PO 100 mg DAILY MARCIN Administration Sevelamer Carbonate 1,600 mg 03/27/20 17:00 03/30/20 11:46 Sevelamer Carbonate 800 Mg Tab PO 1,600 mg TID-WM MARCIN Administration Sodium Chloride 10 ml 03/26/20 21:12 03/30/20 08:23 Flush - Normal Saline 10 Ml Syringe IVF 10 ml PRN PRN Administration Saline Flush Terazosin HCl 2 mg 03/27/20 21:00 03/29/20 22:01 Terazosin Hcl 1 Mg Cap PO 2 mg HS MARCIN Administration - Exam General Appearance: awake alert Eye: PERRL ENT: normocephalic atraumatic Neck: supple Respiratory: CTAB Cardiovascular: RRR Gastrointestinal: soft Extremities: no cyanosis Skin: normal turgor Neurological: no new deficit Musculoskeletal: normal tone, no muscle wasting PSYCH: normal affect, normal behavior, A&O x 3 Results - Labs Result Diagrams: 03/30/20 04:49 03/30/20 04:49 Lab results: WBC 7.4 thou/uL (4.8-10.8) 03/30/20 04:49 Hgb 11.6 g/dL (12.0-16.0) L 03/30/20 04:49 Hct 33.8 % (36.0-47.0) L 03/30/20 04:49 MCV 98.4 fL (78.0-98.0) H 03/30/20 04:49 Plt Count 188 thou/uL (130-400) 03/30/20 04:49 Neutrophils % 68.7 % (42.0-75.0) 03/30/20 04:49 Sodium 137 mmol/L (136-145) 03/30/20 04:49 Potassium 4.5 mmol/L (3.5-5.1) 03/30/20 04:49 Chloride 98 mmol/L (98-107) 03/30/20 04:49 Carbon Dioxide 25 mmol/L (23-31) 03/30/20 04:49 BUN 24 mg/dL (9.8-20.1) H 03/30/20 04:49 Creatinine 4.96 mg/dL (0.6-1.1) H 03/30/20 04:49 Glucose 143 mg/dL (83-110) H 03/30/20 04:49 Calcium 8.8 mg/dL (7.8-10.44) 03/30/20 04:49 Total Bilirubin 0.6 mg/dL (0.2-1.2) 03/26/20 18:50 AST 20 U/L (5-34) 03/26/20 18:50 ALT 20 U/L (8-55) 03/26/20 18:50 Alkaline Phosphatase 84 U/L (40-110) 03/26/20 18:50 CK-MB (CK-2) 3.7 ng/mL (0-6.6) 03/26/20 18:50 Troponin I 0.037 ng/mL (< 0.028) H 03/27/20 07:06 Serum Total Protein 7.0 g/dL (6.0-8.3) 03/26/20 18:50 Albumin 3.9 g/dL (3.4-4.8) 03/26/20 18:50 Urine Ketones Negative mg/dL (Negative) 03/26/20 05:10 Urine Blood Trace (Negative) A 03/26/20 05:10 Urine Nitrite Negative (Negative) 03/26/20 05:10 Ur Leukocyte Esterase 250 Roxie/uL (Negative) A 03/26/20 05:10 Urine RBC 0-3 HPF (0-3) 03/26/20 05:10 Urine WBC 7-10 HPF (0-3) A 03/26/20 05:10 Ur Squamous Epith Cells 11-20 HPF (0-3) A 03/26/20 05:10 Urine Bacteria 1+ HPF (None Seen) A 03/26/20 05:10 - Radiology Interpretation MRI - head Additional Comment: MRI of the head was consistent with acute infarct PN A/P (1) Acute CVA (cerebrovascular accident) Code(s): I63.9 - CEREBRAL INFARCTION, UNSPECIFIED Status: Acute (2) Atrial fibrillation Code(s): I48.91 - UNSPECIFIED ATRIAL FIBRILLATION Status: Chronic (3) CAD (coronary artery disease) Code(s): I25.10 - ATHSCL HEART DISEASE OF [place] CORONARY ARTERY W/O ANG PCTRS Status: Chronic (4) DM2 (diabetes mellitus, type 2) Status: Chronic (5) HTN (hypertension) Code(s): I10 - ESSENTIAL (PRIMARY) HYPERTENSION Status: Chronic (6) Aortic stenosis Code(s): I35.0 - NONRHEUMATIC AORTIC (VALVE) STENOSIS Status: Acute Qualifiers: Cardiac valve disease etiology: etiology unspecified Qualified Code(s): I3 5.0 - Nonrheumatic aortic (valve) stenosis (7) S/P total hip arthroplasty Code(s): Z96.649 - PRESENCE OF UNSPECIFIED ARTIFICIAL HIP JOINT Status: Acute (8) Status post coronary artery bypass graft Code(s): Z95.1 - PRESENCE OF AORTOCORONARY BYPASS GRAFT Status: Acute (9) Anemia in chronic kidney disease Code(s): N18.9 - CHRONIC KIDNEY DISEASE, UNSPECIFIED; D63.1 - ANEMIA IN CHRONIC KIDNEY DISEASE Status: Chronic Qualifiers: Chronic kidney disease stage: on chronic dialysis Qualified Code(s): N18.6 - End stage renal disease; D63.1 - Anemia in chronic kidney disease; Z99.2 - Dependence on renal dialysis (10) ESRD (end stage renal disease) Code(s): N18.6 - END STAGE RENAL DISEASE Status: Chronic (11) Type 2 diabetes mellitus Status: Chronic Qualifiers: 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: with nursing home use Diabetes mellitus complication status: with kidney complications Diabetes mellitus complication detail: with chronic kidney disease Chronic kidney disease stage: on chronic dialysis Qualified Code(s): E11.22 - Type 2 diabetes mellitus with diabetic chronic kidney disease; N18.6 - End stage renal disease; Z79.4 - investment manager (current) use of insulin; Z99.2 - Dependence on renal dialysis - Plan Daily Plan: PT/OT, speech therapy, DVT proph w/SCDs Based Raphael is a 74-year-old female with history significant for hypertension, hyperlipidemia, atrial fibrillation and aortic stenosis presented with strokelike symptoms of right upper and lower extremity weakness which are almost resolved except for right hand weakness. Patient feels much better today . MRI of the brain reviewed which was consistent with acute infarction in the left frontal lobe EEG reviewed which was negative for seizure activity. 2D echo showed normal ejection fraction. No thrombus or PFO. Telemetryatrial fibrillationaudiology on board. Suggested starting Eliquis 2.5 mg p.o. twice daily and discontinuing aspirin yesterday which she tolerated well Neurochecks every 4 hours. Continue high intensity statin for secondary stroke prevention. Discontinue aspirin since patient will be started on Eliquis for atrial fibrillation and also for secondary stroke prevention Continue home medications. Permissive control of blood pressure at this time. Strict control of blood glucose. PT/OT/speech. Continue medical management per primary team and nephrology. Case management on board regarding discharge planning. Patient will be discharged home with home health. Plan discussed in detail with the patient the nursing staff .
[2020-03-30 15:39] VITALS: BP 151/77
--- NOTE | 2020-03-30 19:19 | PDOC.DS.DS ---
Provider - Provider Date of Admission: 03/26/20 21:21 Admitting Provider: Melvin Marquez MD Consultations: Cardiology, Nephrology, Neurology, Other (Electrophysiology) Primary Care Physician: CASIMIRO Alvarenga Course - Hospital Course Hospital Course: Patient is 74-year-old female with coronary artery disease, atrial fibrillation, end-stage renal disease, hypertension and diabetes mellitus type 2 and intracerebral hemorrhage earlier this year presented to the emergency room with right-sided weakness on 03/26. Please refer to the history and physical for furt her details The patient was admitted to the stroke unit with a diagnosis of acute CVA. Aspirin was continued. She underwent echocardiogram that showed ejection fraction 55 to 60% with moderate tricuspid regurgitation. Carotid Doppler was negative for hemodynamically significant stenosis. MRI of the brain on 03/27 showed evidence of acute infarct in the left frontal lobe involving precentral and probably postcentral gyrus along with central sulcus in the left MCA distribution. Patient was evaluated by multiple consultants including neurology, cardiology and electrophysiology. Anticoagulation was recommended. I discussed with neurosurgery due to history of intracranial bleed earlier this year. Per neurosurgery there is no contraindication for anticoagulation. Aspirin has been discontinued by cardiology. Patient also underwent hemodialysis per nephrology. Patient also was found to have uncontrolled hypertension for which had medication adjustment by cardiology. Patient will follow up with electrophysiology as outpatient for consideration of watchman device. 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 Diabetes mellitus type 2 Coronary artery disease End-stage renal disease on hemodialysis Atrial fibrillationstarted on anticoagulation this admission Hypertension Hyperlipidemia History of intracerebral bleed in August- Swallow dysfunctionon modified diet Resuscitation Status: 03/26/20 21:17 Resuscitation Status Routine Co-Sign Provider: Resuscitation Status: FULL: Full Resuscitation Discussed with: Patient - Labs Lab Results: 03/30/20 04:49 03/30/20 04:49 Abnormal Lab Results - Last 48 hrs 03/29/20 04:49: Sodium 135 L, Carbon Dioxide 20 L, BUN 39 H, Creatinine 6.76 H 03/29/20 04:49: RBC 3.25 L, Hgb 11.1 L, Hct 32.3 L, MCV 99.4 H, MCH 34.2 H, RDW 14.9 H, Lymphocytes % 16.3 L, Monocytes # 0.6 H 03/30/20 04:49: BUN 24 H, Creatinine 4.96 H 03/30/20 04:49: RBC 3.44 L, Hgb 11.6 L, Hct 33.8 L, MCV 98.4 H, MCH 33.7 H, RDW 14.9 H, Lymphocytes % 19.2 L, Monocytes # 0.6 H - Physical Exam Vitals: Vital Signs (12 hours) Temp Pulse Pulse Resp BP BP BP 03/30/20 15:36 151/77 H 03/30/20 10:30 98.2 F 76 18 132/65 03/30/20 08:41 83 146/79 H 03/30/20 07:56 97.6 F 68 16 183/91 H Pulse Ox 03/30/20 15:36 03/30/20 10:30 97 03/30/20 08:41 03/30/20 07:56 97 Weight Weight 176 lb 2.389 oz Physical Exam: The patient was seen and examined on the day of discharge. Plan - Discharge Medications Prescriptions: cloNIDine [Catapres] 0.1 mg PO BID PRN #20 tab PRN Reason: Sbp Greater Than 180 cloNIDine [Catapres] 0.1 mg PO TID #90 tab Apixaban [Eliquis] 2.5 mg PO BID #60 tab Atorvastatin Calcium [Lipitor] 40 mg PO HS #30 tab NIFEdipine [Procardia XL] 90 mg PO DAILY #30 tab Home Medications: Medication Instructions Recorded Confirmed Type Isosorbide Dinitrate 20 mg PO ASDIR 04/14/17 03/27/20 History Terazosin HCl 2 mg PO HS 04/14/17 03/27/20 History Cyanocobalamin (Vitamin B-12) 500 mcg PO DAILY 09/01/19 03/27/20 History [Vitamin B-12] Insulin Degludec [Tresiba 42 units SC HS 09/01/19 03/27/20 History Flextouch U-100] B,C/Folic/Zinc/Selenometh/D3/E 1 tab PO DAILY 03/27/20 03/27/20 History [Renaplex-D Tablet] Cholecalciferol (Vitamin D3) 25 mcg PO DAILY 03/27/20 03/27/20 History [Vitamin D3] Fish Oil 1,200 mg PO DAILY 03/27/20 03/27/20 History Lidocaine/Prilocaine 2.5% [EMLA 1 applic TOP ASDIR 03/27/20 03/27/20 History Cream] Losartan [Cozaar] 100 mg PO DAILY 03/27/20 03/27/20 History Magnesium 500 mg PO ASDIR 03/27/20 03/27/20 History Sevelamer Carbonate [Renvela] 1,600 mg PO TID-WM 03/27/20 03/27/20 History Apixaban [Eliquis] 2.5 mg PO BID #60 tab 03/30/20 Rx Atorvastatin Calcium [Lipitor] 40 mg PO HS #30 tab 03/30/20 Rx NIFEdipine [Procardia XL] 90 mg PO DAILY #30 tab 03/30/20 Rx cloNIDine [Catapres] 0.1 mg PO BID PRN #20 tab 03/30/20 Rx cloNIDine [Catapres] 0.1 mg PO TID #90 tab 03/30/20 Rx Allergies: Penicillins Allergy (Verified 03/27/20 02:06) - Follow up Plan Referrals: [facility] [Outside] Mendoza Moses MD [Active] - 7 Days Shreyas Boudreaux MD [Digital Forensic Examiner] - Gloria Miller PA [Primary Care Provider] - 7 Days Ketan Levy MD [Active] - Disposition: HOME HEALTH Quality - Care Measures CORE MEASURES:: Stroke/TIA - Stroke/TIA Did you prescribe antithrombotic therapy?: No Specify reason for no DC antithrombotic therapy: Medical contraindication (Aspirin discontinued by cardiology due to history of intracerebral bleed in the past) Did you prescribe anticoagulant for A Fib/Flutter?: Yes Did you prescribe a statin medication?: Yes
[2020-03-31] MEDS ORDERED: NIFEdipine XL 90 MG TAB PO SCH (09:00)
== END 2020-03-30 15:45 | disposition home health service (06) | DRG 64 ==
LOC: ERS 18:41 → 2SE 21:21
PROVIDERS: ADMIT Internal Medicine; ATTEND Internal Medicine
PROC: 5A1D70Z Performance of Urinary Filtration, Intermittent, Less than 6 Hours Per Day (ICD-10-PCS; principal; 2020-03-27)
DX: I63.512 Cerebral infarction due to unspecified occlusion or stenosis of left middle cerebral artery (principal); N18.6 End stage renal disease; G81.94 Hemiplegia, unspecified affecting left nondominant side; I12.0 Hypertensive chronic kidney disease with stage 5 chronic kidney disease or end stage renal disease; I48.19 Other persistent atrial fibrillation; Z20.828 Contact with and (suspected) exposure to other viral communicable diseases; R29.703 NIHSS score 3; I25.10 Atherosclerotic heart disease of native coronary artery without angina pectoris; E78.5 Hyperlipidemia, unspecified; E11.22 Type 2 diabetes mellitus with diabetic chronic kidney disease; R29.810 Facial weakness; R47.81 Slurred speech; R13.10 Dysphagia, unspecified; Z96.649 Presence of unspecified artificial hip joint; I08.3 Combined rheumatic disorders of mitral, aortic and tricuspid valves; D63.1 Anemia in chronic kidney disease; R47.01 Aphasia; Z88.2 Allergy status to sulfonamides; Z86.73 Personal history of transient ischemic attack (TIA), and cerebral infarction without residual deficits; Z79.899 Other long term (current) drug therapy; Z79.4 Long term (current) use of insulin; Z79.82 Long term (current) use of aspirin; Z88.0 Allergy status to penicillin; Z95.1 Presence of aortocoronary bypass graft; Z90.49 Acquired absence of other specified parts of digestive tract; Z95.2 Presence of prosthetic heart valve
CPT/HCPCS: 36415; 36416; 70450; 70551; 71045; 80048; 80053; 80061; 81001; 82553; 82607; 82746; 83735; 84443; 84484; 85025; 86706; 87340; 87635; 90935; 93005; 93306; 93880; 94760; G0257; J0360; U0003

== ENCOUNTER 2020-04-27 07:19 | Outpatient (CLI) | payer MEDICARE, OTHER ==
[2020-04-27 14:11] LABS: #Eosinphils 0.1 10x3/uL (0.0-0.5); #Monocytes 0.5 10x3/uL (0.0-1.1); #Neutrophils 4.1 10x3/uL (1.5-8.4); %Basophils 0.6 % (0.0-2.0); %Eosinophils 1.9 % (0.0-6.0); %Lymphocytes 23.3 % (18.0-47.0); %Monocytes 7.5 % (0.0-10.0); %Neutrophils 66.5 % (40.0-75.0); Hemoglobin 10.9 g/dL (12.0-16.0); Mean Corpuscular Hemoglobin 31.7 PG (27.0-33.0); Mean Corpuscular Volume 95.9 fl (80.0-100.0); Mean Platelet Volume 11.3 fl (7.4-10.4); Platelet Count 137 10x3/uL (130-400); RBC Distribution Width 13.2 % (11.5-14.5); Red Blood Cell (RBC) Count 3.44 10x6/uL (3.90-5.20); White Blood Cell (WBC) Count 6.2 10x3/uL (4.5-11.0)
[2020-04-27 14:30] LABS: Anion Gap 17 mmol/L (10-20); BUN (Urea Nitrogen) 32 mg/dL (9.8-20.1); Calc. Creatinine Clearance 0 mL/min (70-130); Calcium 8.7 mg/dL (7.8-10.44); Carbon Dioxide 28 mmol/L (23-31); Chloride 97 mmol/L (98-107); Glucose 104 mg/dL (83-110); Potassium 4.5 mmol/L (3.5-5.1); Sodium 137 mmol/L (136-145)
[2020-04-28 02:28] LABS: SARS-CoV-2 MS2 Positive; SARS-CoV-2 N Gene Negative; SARS-CoV-2 S Gene Negative; SARS-CoV-2 by NAA Not Detected (NotDetected); SARS-CoV-2 orf1ab Negative
== END 2020-04-27 07:20 | disposition home or self-care (01) ==
LOC: LABBT 07:19
PROVIDERS: ATTEND Internal Medicine Cardiovascular Disease
DX: Z01.818 Encounter for other preprocedural examination (principal); Z20.828 Contact with and (suspected) exposure to other viral communicable diseases; I48.91 Unspecified atrial fibrillation
CPT/HCPCS: 80048; 85025; 93005; U0003; 87635; 93010

== ENCOUNTER 2020-05-02 06:00 | Day surgery (SDC) | payer MEDICARE, OTHER ==
[2020-04-30 11:08] VITALS: BMI 27.4
--- NOTE | 2020-05-02 11:22 | OP ---
DATE OF PROCEDURE: 05/02/2020 PROCEDURE PERFORMED: Transesophageal echocardiogram. INDICATIONS FOR PROCEDURE: A 74-year-old woman with mitral and tricuspid regurgitation. DESCRIPTION OF PROCEDURE: The patient was taken to the PACU. The patient sedated by Anesthesiology. A transesophageal probe was placed into the distal esophagus and stomach. Echocardiographic images were obtained. The transesophageal probe was removed. FINDINGS: 1. Normal left systolic function. 2. Severe right atrial enlargement. 3. Moderate left atrial enlargement. 4. Normal functioning prosthetic aortic valve. 5. Severe tricuspid regurgitation. 6. Moderate mitral regurgitation. 7. No thrombus noted in the left atrial or left atrial appendage. 8. Atherosclerotic debris in the descending aorta. IMPRESSION: Moderate mitral regurgitation with no formed thrombus in left atrial or left atrial appendage. Job ID: [id number]
[2020-05-02] MEDS ORDERED: PROPOFOL 200 MG/20 ML VIAL ONE (12:32)
== END 2020-05-02 10:30 | disposition home or self-care (01) ==
LOC: CCL 06:00
PROVIDERS: ATTEND Internal Medicine Cardiovascular Disease
PROC: B245ZZ4 Ultrasonography of Left Heart, Transesophageal (ICD-10-PCS; principal; 2020-05-02)
DX: I48.0 Paroxysmal atrial fibrillation (principal); I08.1 Rheumatic disorders of both mitral and tricuspid valves; I25.10 Atherosclerotic heart disease of native coronary artery without angina pectoris; I12.0 Hypertensive chronic kidney disease with stage 5 chronic kidney disease or end stage renal disease; E11.22 Type 2 diabetes mellitus with diabetic chronic kidney disease; N18.6 End stage renal disease; E78.5 Hyperlipidemia, unspecified; E78.00 Pure hypercholesterolemia, unspecified; Z79.01 Long term (current) use of anticoagulants; Z79.4 Long term (current) use of insulin; Z79.899 Other long term (current) drug therapy; Z99.2 Dependence on renal dialysis; Z95.2 Presence of prosthetic heart valve
CPT/HCPCS: 92960; 93312

== ENCOUNTER 2020-06-20 13:27 | Outpatient (CLI) | payer MEDICARE, OTHER ==
[2020-06-20] MEDS ORDERED: Iopamidol 370 76% 100 ML VIAL ONE (13:53)
== END 2020-06-20 13:28 | disposition home or self-care (01) ==
LOC: BICCT 13:27
PROVIDERS: ATTEND Thoracic Surgery (Cardiothoracic Vascular Surgery)
DX: I70.212 Atherosclerosis of native arteries of extremities with intermittent claudication, left leg (principal); I77.1 Stricture of artery; M47.816 Spondylosis without myelopathy or radiculopathy, lumbar region
CPT/HCPCS: 75635; Q9967

== ENCOUNTER 2021-12-02 08:30 | Inpatient (IN) | payer MEDICARE, OTHER ==
[2021-12-13 10:58] LABS: Hemoglobin 10.2 g/dL (12.0-15.5); Mean Corpuscular HGB CONC 32.7 g/dL (32.0-36.0); Mean Corpuscular Hemoglobin 31.7 pg (27.0-33.0); Mean Corpuscular Volume 96.9 fl (81.6-98.3); Mean Platelet Volume 11.3 fl (7.4-10.4); Platelet Count 128 10x3/uL (150-450); RBC Distribution Width 15.1 % (11.5-14.5); Red Blood Cell (RBC) Count 3.22 10x6/uL (3.90-5.03); White Blood Cell (WBC) Count 6.4 10x3/uL (3.5-10.5)
[2021-12-13 11:04] LABS: INR-International Normal Ratio 1.1; Prothrombin Time 12.1 sec (9.5-12.1)
[2021-12-13 15:56] VITALS: BMI 28.2
[2021-12-17] MEDS ORDERED: Iopamidol 370 76% 100 ML VIAL ONE (09:18)
[2021-12-17] MEDS ORDERED: Dextrose 50% Abboject 50 ML SYRINGE ONE ×2 (11:18→15:22)
[2021-12-17] MEDS ORDERED: Clindamycin/D5W 600 mg/50 ml Premix Bag ONE (12:37)
[2021-12-17] MEDS ORDERED: Protamine Sulfate 50 MG/5 ML VIAL ONE (12:37)
[2021-12-17] MEDS ORDERED: Heparin 10,000 UNITS/ 10 ML VIAL ONE (12:37)
[2021-12-17] MEDS ORDERED: SUGAMMADEX SODIUM 200 MG/2 ML VIAL ONE (13:02)
[2021-12-17] MEDS ORDERED: Famotidine/PF 20 mg/2ml Vial ONE (13:02)
[2021-12-17] MEDS ORDERED: fentaNYL Citrate/PF 100 MCG/2 ML SYRINGE ONE (13:03)
[2021-12-17] MEDS ORDERED: Neostigmine Methylsulfate 3 MG/3 ML SYRINGE ONE (13:38)
[2021-12-17] MEDS ORDERED: Ondansetron PF 4 MG/2 ML Vial ONE (13:38)
[2021-12-17] MEDS ORDERED: Dexamethasone 20 MG/5 ML VIAL ONE (13:38)
[2021-12-17] MEDS ORDERED: Lidocaine 1% MPF 2 ML VIAL ONE (13:38)
[2021-12-17] MEDS ORDERED: Ketorolac Tromethamine 30 MG/ML VIAL ONE (13:38)
[2021-12-17] MEDS ORDERED: Glycopyrrolate 0.2 MG/ML 5 ML SYRINGE ONE (13:38)
[2021-12-17] MEDS ORDERED: Rocuronium Bromide 10 MG/ML (10ML VIAL) ONE (13:38)
[2021-12-17] MEDS ORDERED: PROPOFOL 200 MG/20 ML VIAL ONE (13:38)
[2021-12-17] MEDS ORDERED: Clindamycin/D5W 900 mg/50 ml Premix Bag ONE (14:03)
[2021-12-17] MEDS ORDERED: Ondansetron HCl/PF 4 MG/2 ML Vial IVP PRN (15:57)
[2021-12-17] MEDS ORDERED: Promethazine HCl 25 MG/ML VIAL IVPB PRN (15:57)
[2021-12-17] MEDS ORDERED: Promethazine HCl 25 MG/ML VIAL IM PRN (15:57)
[2021-12-17] MEDS ORDERED: Insulin Regular 300 UNITS/3 ML VIAL SC PRN (16:15)
[2021-12-17] MEDS ORDERED: Lidocaine-Prilocaine 2.5% Cream 5 GM TUBE TOP SCH (16:15)
[2021-12-17] MEDS ORDERED: Dextrose 5% in Water 1,000 ML IV PRN (16:15)
[2021-12-17] MEDS ORDERED: Dextrose 50% Abboject 50 ML SYRINGE IVP PRN (16:15)
[2021-12-17] MEDS ORDERED: HYDROcodone/Acetaminophen 5/325 mg Tablet PO PRN ×2 (19:00)
[2021-12-17] MEDS: Sevelamer Carbonate 800 MG TAB PO SCH ×3 (20:19→20:42)
[2021-12-17] MEDS: Icosapent Ethyl 1 GM CAPSULE PO SCH (20:34)
[2021-12-17] MEDS: Isosorbide Dinitrate 20 MG TAB PO SCH (20:35)
[2021-12-17] MEDS ORDERED: Insulin Glargine 30 UNITS/0.3 ML VIAL SC SCH (21:00)
[2021-12-17] MEDS ORDERED: Terazosin HCl 1 MG CAP PO SCH (21:00)
[2021-12-17] MEDS ORDERED: Atorvastatin Calcium 40 MG TAB PO SCH (21:00)
[2021-12-18] MEDS: Losartan 25 MG TAB PO SCH ×3 (00:35→10:12)
[2021-12-18] MEDS ORDERED: Aspirin 81 mg Enteric Coated Tablet PO SCH (09:00)
[2021-12-18] MEDS ORDERED: Cyanocobalamin (Vitamin B-12) 1,000 MCG TAB PO SCH (09:00)
[2021-12-18] MEDS ORDERED: Cholecalciferol 1,000 UNITS (25 MCG) TAB PO SCH (09:00)
[2021-12-18] MEDS ORDERED: Clopidogrel Bisulfate 75 MG TAB PO SCH (09:00)
[2021-12-18 09:44] VITALS: TEMP 97.6
[2021-12-18] MEDS: NIFEdipine XL 90 MG TAB PO SCH ×2 (09:44→10:12)
[2021-12-18] MEDS: Icosapent Ethyl 1 GM CAPSULE PO SCH (09:44)
[2021-12-18] MEDS: Sevelamer Carbonate 800 MG TAB PO SCH ×2 (09:44→11:47)
[2021-12-18] MEDS: Isosorbide Dinitrate 20 MG TAB PO SCH (09:44)
[2021-12-18 12:10] VITALS: BP 150/67
[2021-12-19] MEDS ORDERED: Isosorbide Dinitrate 20 MG TAB PO SCH (15:00)
== END 2021-12-18 14:10 | disposition home or self-care (01) | DRG 273 ==
LOC: SURG A 12-17 09:05 → 2NO 12-17 18:10
PROVIDERS: ADMIT Internal Medicine Cardiovascular Disease; ATTEND Internal Medicine Cardiovascular Disease
PROC: 02L73DK Occlusion of Left Atrial Appendage with Intraluminal Device, Percutaneous Approach (ICD-10-PCS; principal; 2021-12-17)
PROC: B24BZZ4 Ultrasonography of Heart with Aorta, Transesophageal (ICD-10-PCS; 2021-12-17)
DX: I48.19 Other persistent atrial fibrillation (principal); N18.6 End stage renal disease; I12.0 Hypertensive chronic kidney disease with stage 5 chronic kidney disease or end stage renal disease; I25.10 Atherosclerotic heart disease of native coronary artery without angina pectoris; E11.22 Type 2 diabetes mellitus with diabetic chronic kidney disease; E78.5 Hyperlipidemia, unspecified; E11.51 Type 2 diabetes mellitus with diabetic peripheral angiopathy without gangrene; D63.1 Anemia in chronic kidney disease; Z98.890 Other specified postprocedural states; Z90.49 Acquired absence of other specified parts of digestive tract; Z95.1 Presence of aortocoronary bypass graft; Z82.3 Family history of stroke; Z99.2 Dependence on renal dialysis; Z79.01 Long term (current) use of anticoagulants; Z88.0 Allergy status to penicillin; Z80.9 Family history of malignant neoplasm, unspecified; Z82.49 Family history of ischemic heart disease and other diseases of the circulatory system; Z79.899 Other long term (current) drug therapy; Z86.73 Personal history of transient ischemic attack (TIA), and cerebral infarction without residual deficits; Z79.4 Long term (current) use of insulin; Z20.822 Contact with and (suspected) exposure to COVID-19
CPT/HCPCS: 33340; 36416; 36430; 85027; 85347; 85610; 86850; 86900; 86901; 87811; 93306; 93312; C1725; C1759; C1760; C1769; C1894; J1100; J1644; J1815; J1885; J2405; J2704; J2720; J3490; J7999; Q9967; S0028

== ENCOUNTER 2022-02-03 08:35 | Outpatient (CLI) | payer MEDICARE, OTHER ==
[2022-02-03 09:40] LABS: Hemoglobin 10.4 g/dL (12.0-15.5); Mean Corpuscular HGB CONC 33.2 g/dL (32.0-36.0); Mean Corpuscular Hemoglobin 30.9 pg (27.0-33.0); Mean Corpuscular Volume 92.9 fl (81.6-98.3); Mean Platelet Volume 11.6 fl (7.4-10.4); Platelet Count 103 10x3/uL (150-450); RBC Distribution Width 14.6 % (11.5-14.5); Red Blood Cell (RBC) Count 3.37 10x6/uL (3.90-5.03); White Blood Cell (WBC) Count 5.4 10x3/uL (3.5-10.5)
[2022-02-03 09:42] LABS: INR-International Normal Ratio 1.1; Prothrombin Time 11.8 sec (9.5-12.1)
[2022-02-03 09:52] LABS: Anion Gap 16 mmol/L (10-20); BUN (Urea Nitrogen) 39 mg/dL (9.8-20.1); Calc. Creatinine Clearance 0 mL/min (70-130); Carbon Dioxide 29 mmol/L (23-31); Chloride 98 mmol/L (98-107); Estimated GFR 8; Glucose 71 mg/dL (83-110); Potassium 5.1 mmol/L (3.5-5.1); Sodium 138 mmol/L (136-145)
== END 2022-02-03 08:36 | disposition home or self-care (01) ==
LOC: LABBT 08:35
PROVIDERS: ATTEND Internal Medicine Cardiovascular Disease
DX: Z01.812 Encounter for preprocedural laboratory examination (principal); I48.19 Other persistent atrial fibrillation
CPT/HCPCS: 80048; 85027; 85610

== ENCOUNTER 2022-02-13 08:06 | Day surgery (SDC) | payer MEDICARE, OTHER ==
[2022-02-12 11:37] VITALS: BMI 29.2
[2022-02-13] MEDS ORDERED: PHENYLEPHRINE-NS 100 MCG/ML 10 ML SYRINGE ONE (10:28)
[2022-02-13] MEDS ORDERED: PROPOFOL 200 MG/20 ML VIAL ONE (10:28)
== END 2022-02-13 12:06 | disposition home or self-care (01) ==
LOC: SDC 08:06
PROVIDERS: ATTEND Internal Medicine Cardiovascular Disease
PROC: B246ZZ4 Ultrasonography of Right and Left Heart, Transesophageal (ICD-10-PCS; principal; 2022-02-13)
DX: I48.19 Other persistent atrial fibrillation (principal); I08.1 Rheumatic disorders of both mitral and tricuspid valves; I12.0 Hypertensive chronic kidney disease with stage 5 chronic kidney disease or end stage renal disease; E11.22 Type 2 diabetes mellitus with diabetic chronic kidney disease; N18.6 End stage renal disease; D63.1 Anemia in chronic kidney disease; I25.10 Atherosclerotic heart disease of native coronary artery without angina pectoris; E78.5 Hyperlipidemia, unspecified; Z86.73 Personal history of transient ischemic attack (TIA), and cerebral infarction without residual deficits; Z79.02 Long term (current) use of antithrombotics/antiplatelets; Z79.4 Long term (current) use of insulin; Z79.82 Long term (current) use of aspirin; Z79.899 Other long term (current) drug therapy; Z88.0 Allergy status to penicillin; Z95.1 Presence of aortocoronary bypass graft; Z95.2 Presence of prosthetic heart valve; Z95.818 Presence of other cardiac implants and grafts; Z99.2 Dependence on renal dialysis
CPT/HCPCS: 36416; 93312; J2704

== ENCOUNTER 2022-05-28 12:58 | Inpatient (IN) | payer MEDICARE, OTHER ==
[2022-05-28 14:21] LABS: #Eosinphils 0.1 thou/uL (0.0-0.7); #Lymphocytes 0.5 thou/uL (1.20-3.40); #Monocytes 0.8 thou/uL (0.11-0.59); #Neutrophils 10.4 thou/uL (1.40-6.50); %Basophils 0.2 % (0.0-1.0); %Eosinophils 0.7 % (0.0-10.0); %Lymphocytes 4.1 % (21.0-51.0); %Monocytes 6.3 % (0.0-10.0); %Neutrophils 88.7 % (42.0-75.0); Hemoglobin 10.9 g/dL (12.0-16.0); Mean Corpuscular HGB CONC 32.8 g/dL (32.0-36.0); Platelet Count 123 10x3/uL (130-400); RBC Distribution Width 14.5 % (11.5-14.5); Red Blood Cell (RBC) Count 3.31 mill/uL (4.20-5.40); White Blood Cell (WBC) Count 11.8 10x3/uL (4.8-10.8)
[2022-05-28 14:35] LABS: INR-International Normal Ratio 1.2; PTT 30.2 sec (22.9-36.1); Prothrombin Time 15.4 sec (12.0-14.7)
[2022-05-28] MEDS ORDERED: Fentanyl 100 MCG/2 ML VIAL ONE (14:40)
[2022-05-28 14:45] LABS: ALT (SGPT) 16 U/L (8-55); AST (SGOT) 21 U/L (5-34); Albumin 4.1 g/dL (3.4-4.8); Alkaline Phosphatase 87 U/L (40-110); Anion Gap 18 mmol/L (10-20); BUN (Urea Nitrogen) 20 mg/dL (9.8-20.1); Calc. Creatinine Clearance 0 mL/min (70-130); Calcium 9.1 mg/dL (7.8-10.44); Carbon Dioxide 27 mmol/L (23-31); Chloride 98 mmol/L (98-107); Estimated GFR 8; Globulin 2.9 g/dL (2.4-3.5); Glucose 167 mg/dL (83-110); Potassium 4.6 mmol/L (3.5-5.1); Sodium 138 mmol/L (136-145)
[2022-05-28 20:56] VITALS: BMI 28.0
[2022-05-28] MEDS ORDERED: Ipratropium/Albuterol 3 ML NEB NEB PRN (21:00)
[2022-05-28] MEDS ORDERED: Morphine 2 MG/ML VIAL SLOW IVP PRN (21:00)
[2022-05-28] MEDS ORDERED: Insulin Regular 300 UNITS/3 ML VIAL SC PRN ×2 (21:00)
[2022-05-28] MEDS ORDERED: Dextrose 5% in Water 1,000 ML IV PRN (21:00)
[2022-05-28] MEDS ORDERED: Dextrose 50% Abboject 50 ML SYRINGE SLOW IVP PRN (21:00)
[2022-05-28] MEDS ORDERED: hydrALAZINE 20 MG/ML VIAL SLOW IVP PRN (21:00)
[2022-05-28] MEDS ORDERED: Cyclobenzaprine 10 MG TAB PO PRN (21:12)
[2022-05-28] MEDS: Famotidine 20 MG TAB PO SCH (21:35)
[2022-05-28] MEDS ORDERED: traMADol HCl 50 MG TAB PO SCH (22:00)
[2022-05-28] MEDS ORDERED: hydrALAZINE 20 MG/ML VIAL ONE (22:00)
[2022-05-28] MEDS: Acetaminophen 500 MG TAB PO SCH (23:16)
[2022-05-28] MEDS: Ondansetron ODT 4 MG TAB PO PRN (23:16)
[2022-05-29 06:16] LABS: #Eosinphils 0.1 thou/uL (0.0-0.7); #Lymphocytes 0.8 thou/uL (1.20-3.40); #Monocytes 0.7 thou/uL (0.11-0.59); #Neutrophils 6.6 thou/uL (1.40-6.50); %Basophils 0.2 % (0.0-1.0); %Eosinophils 0.9 % (0.0-10.0); %Lymphocytes 9.5 % (21.0-51.0); %Neutrophils 81.4 % (42.0-75.0); Hemoglobin 10.9 g/dL (12.0-16.0); Mean Corpuscular HGB CONC 33.7 g/dL (32.0-36.0); Mean Corpuscular Hemoglobin 34.5 pg (27.0-31.0); Platelet Count 111 10x3/uL (130-400); Red Blood Cell (RBC) Count 3.15 mill/uL (4.20-5.40); White Blood Cell (WBC) Count 8.1 10x3/uL (4.8-10.8)
[2022-05-29] MEDS: Ondansetron ODT 4 MG TAB PO PRN (06:24)
[2022-05-29] MEDS: Acetaminophen 500 MG TAB PO SCH (06:24)
[2022-05-29 06:27] LABS: Anion Gap 18 mmol/L (10-20); BUN (Urea Nitrogen) 27 mg/dL (9.8-20.1); Calc. Creatinine Clearance 9 mL/min (70-130); Calcium 9.3 mg/dL (7.8-10.44); Carbon Dioxide 23 mmol/L (23-31); Chloride 99 mmol/L (98-107); Estimated GFR 6; Glucose 132 mg/dL (83-110); Magnesium 2.1 mg/dL (1.6-2.6); Phosphorus 3.9 mg/dL (2.3-4.7); Potassium 5.2 mmol/L (3.5-5.1); Sodium 135 mmol/L (136-145)
[2022-05-29] MEDS ORDERED: Acetaminophen/Codeine 30-300mg Tablet PO PRN (07:11)
[2022-05-29] MEDS ORDERED: Acetaminophen 500 MG TAB PO SCH (07:11)
[2022-05-29] MEDS: Polyethylene Glycol 3350 17 GM Packet PO SCH ×2 (08:27→13:54)
[2022-05-29] MEDS ORDERED: Non-Formulary Item 1 EACH (Levothyroxine Sodium [Levothyroxine] 50 MCG Capsule) PO SCH (09:00)
[2022-05-29] MEDS ORDERED: Non-Formulary Item 1 EACH (Icosapent Ethyl [Vascepa] 1 GM Capsule) PO SCH (09:00)
[2022-05-29] MEDS ORDERED: TETANUS, DIPHTHERIA TOX,ADULT (TDVAX) 0.5 ML VIAL IM ONE (09:00)
[2022-05-29] MEDS ORDERED: Lidocaine-Prilocaine 2.5% Cream 5 GM TUBE TOP SCH (09:15)
[2022-05-29 11:19] LABS: HBSAg Index 0.24 S/CO (0-0.99); Hep B Core Total Ab Non-Reactive (NonReactive); Hep B Core Total Index 0.07 S/CO (0-0.79); Hep B Surf Ag Non-Reactive S/CO (NonReactive); Hep C IgG Ab Non-Reactive (NonReactive); Hep C Index 0.16 S/CO (0-0.79)
[2022-05-29 11:21] LABS: HBSAB Concentration 128.11 mIU/mL; Hep B Surf AB Reactive (NonReactive)
[2022-05-29] MEDS: Sevelamer Carbonate 800 MG TAB PO SCH ×3 (13:00→18:36)
[2022-05-29] MEDS: Isosorbide Dinitrate 20 MG TAB PO SCH ×3 (13:13→21:30)
[2022-05-29] MEDS: Ondansetron PF 4 MG/2 ML Vial IVP PRN (13:17)
[2022-05-29] MEDS: Senokot S 8.6-50 MG TAB PO SCH ×2 (13:54→21:32)
[2022-05-29] MEDS: Gabapentin 100 MG CAP PO SCH ×2 (13:56→21:31)
[2022-05-29] MEDS: Icosapent Ethyl 1 GM CAPSULE PO SCH ×2 (13:56→21:28)
[2022-05-29] MEDS: Acetaminophen 325 MG TAB PO SCH ×2 (15:59→18:36)
[2022-05-29] MEDS: Acetaminophen/Codeine 30-300mg Tablet PO SCH ×2 (15:59→18:37)
[2022-05-29] MEDS: Losartan 25 MG TAB PO SCH (21:30)
[2022-05-29] MEDS: Atorvastatin Calcium 40 MG TAB PO SCH (21:31)
[2022-05-29] MEDS: Famotidine 20 MG TAB PO SCH (21:31)
[2022-05-29] MEDS: NIFEdipine XL 90 MG TAB PO SCH (21:31)
[2022-05-30] MEDS: Acetaminophen 325 MG TAB PO SCH ×4 (00:02→18:51)
[2022-05-30] MEDS: Acetaminophen/Codeine 30-300mg Tablet PO SCH ×4 (00:02→18:50)
[2022-05-30] MEDS: Levothyroxine Sodium 50 MCG TAB PO SCH (05:05)
[2022-05-30 07:50] LABS: #Eosinphils 0.1 thou/uL (0.0-0.7); #Lymphocytes 0.9 thou/uL (1.20-3.40); #Monocytes 0.7 thou/uL (0.11-0.59); #Neutrophils 4.7 thou/uL (1.40-6.50); %Basophils 0.5 % (0.0-1.0); %Eosinophils 0.9 % (0.0-10.0); %Lymphocytes 13.8 % (21.0-51.0); %Monocytes 11.5 % (0.0-10.0); %Neutrophils 73.3 % (42.0-75.0); Hemoglobin 9.3 g/dL (12.0-16.0); Mean Corpuscular HGB CONC 33.2 g/dL (32.0-36.0); Mean Corpuscular Hemoglobin 33.6 pg (27.0-31.0); Mean Platelet Volume 8.1 fL (7.4-10.4); Platelet Count 109 10x3/uL (130-400); RBC Distribution Width 15.2 % (11.5-14.5); Red Blood Cell (RBC) Count 2.76 mill/uL (4.20-5.40); White Blood Cell (WBC) Count 6.4 10x3/uL (4.8-10.8)
[2022-05-30 08:08] LABS: Anion Gap 14 mmol/L (10-20); BUN (Urea Nitrogen) 31 mg/dL (9.8-20.1); Calc. Creatinine Clearance 9 mL/min (70-130); Calcium 8.4 mg/dL (7.8-10.44); Carbon Dioxide 27 mmol/L (23-31); Chloride 97 mmol/L (98-107); Estimated GFR 6; Glucose 113 mg/dL (83-110); Phosphorus 4.5 mg/dL (2.3-4.7); Potassium 4.8 mmol/L (3.5-5.1); Sodium 133 mmol/L (136-145)
[2022-05-30] MEDS: Polyethylene Glycol 3350 17 GM Packet PO SCH (10:11)
[2022-05-30] MEDS: Sevelamer Carbonate 800 MG TAB PO SCH ×3 (10:12→18:50)
[2022-05-30] MEDS: Isosorbide Dinitrate 20 MG TAB PO SCH ×2 (10:12→21:48)
[2022-05-30] MEDS: Senokot S 8.6-50 MG TAB PO SCH ×2 (10:12→21:09)
[2022-05-30] MEDS: Gabapentin 100 MG CAP PO SCH ×2 (10:12→21:08)
[2022-05-30] MEDS: Icosapent Ethyl 1 GM CAPSULE PO SCH ×2 (10:12→21:08)
[2022-05-30] MEDS: Heparin 5,000 UNITS/ML VIAL SC SCH ×2 (10:13→21:07)
[2022-05-30] MEDS ORDERED: Epoetin (ESRD) 20,000 UNITS/ML MDV SC SCH (11:00)
[2022-05-30] MEDS ORDERED: EPOETIN ALFA-EPBX (ESRD) 10,000 UNIT/ML VIAL SC SCH (12:00)
[2022-05-30] MEDS: Apixaban 2.5 MG TAB PO SCH (21:08)
[2022-05-30] MEDS: Atorvastatin Calcium 40 MG TAB PO SCH (21:08)
[2022-05-30] MEDS: Famotidine 20 MG TAB PO SCH (21:09)
[2022-05-30] MEDS: Losartan 25 MG TAB PO SCH (21:49)
[2022-05-30] MEDS: NIFEdipine XL 90 MG TAB PO SCH (21:49)
[2022-05-31] MEDS: Acetaminophen 325 MG TAB PO SCH ×4 (00:24→18:00)
[2022-05-31] MEDS: Acetaminophen/Codeine 30-300mg Tablet PO SCH ×4 (00:25→18:00)
[2022-05-31] MEDS: Levothyroxine Sodium 50 MCG TAB PO SCH (05:30)
[2022-05-31 06:10] LABS: #Eosinphils 0.1 thou/uL (0.0-0.7); #Lymphocytes 1.1 thou/uL (1.20-3.40); #Monocytes 0.8 thou/uL (0.11-0.59); #Neutrophils 6.4 thou/uL (1.40-6.50); %Basophils 0.4 % (0.0-1.0); %Eosinophils 1.6 % (0.0-10.0); %Lymphocytes 13.1 % (21.0-51.0); %Monocytes 9.1 % (0.0-10.0); %Neutrophils 75.8 % (42.0-75.0); Hemoglobin 9.9 g/dL (12.0-16.0); Mean Corpuscular HGB CONC 34.1 g/dL (32.0-36.0); Mean Corpuscular Hemoglobin 34.1 pg (27.0-31.0); Mean Platelet Volume 8.4 fL (7.4-10.4); Platelet Count 108 10x3/uL (130-400); RBC Distribution Width 15.2 % (11.5-14.5); White Blood Cell (WBC) Count 8.5 10x3/uL (4.8-10.8)
[2022-05-31 06:27] LABS: Anion Gap 17 mmol/L (10-20); BUN (Urea Nitrogen) 43 mg/dL (9.8-20.1); Calc. Creatinine Clearance 7 mL/min (70-130); Calcium 8.6 mg/dL (7.8-10.44); Carbon Dioxide 25 mmol/L (23-31); Chloride 95 mmol/L (98-107); Estimated GFR 5; Glucose 94 mg/dL (83-110); Magnesium 2.1 mg/dL (1.6-2.6); Phosphorus 4.8 mg/dL (2.3-4.7); Potassium 5.5 mmol/L (3.5-5.1); Sodium 131 mmol/L (136-145)
[2022-05-31] MEDS: Aspirin 81 mg Enteric Coated Tablet PO SCH (09:13)
[2022-05-31] MEDS: Icosapent Ethyl 1 GM CAPSULE PO SCH ×2 (09:13→21:12)
[2022-05-31] MEDS: Apixaban 2.5 MG TAB PO SCH ×2 (09:13→21:14)
[2022-05-31] MEDS: Senokot S 8.6-50 MG TAB PO SCH ×2 (09:13→21:14)
[2022-05-31] MEDS: Clopidogrel Bisulfate 75 MG TAB PO SCH (09:14)
[2022-05-31] MEDS: Gabapentin 100 MG CAP PO SCH ×2 (09:14→21:13)
[2022-05-31] MEDS: Sevelamer Carbonate 800 MG TAB PO SCH ×3 (09:14→17:00)
[2022-05-31] MEDS: Polyethylene Glycol 3350 17 GM Packet PO SCH (09:14)
[2022-05-31] MEDS: Isosorbide Dinitrate 20 MG TAB PO SCH ×3 (10:55→21:14)
[2022-05-31] MEDS ORDERED: Metoprolol Tartrate 25 MG TAB PO SCH (11:15)
[2022-05-31] MEDS ORDERED: Heparin 10,000 UNITS/ 10 ML VIAL ONE (13:43)
[2022-05-31 20:15] LABS: Bacteria/HPF 3+ HPF (None Seen); Bilirubin Negative (Negative); Blood, Urine 1+ (Negative); CAUTI Indications for Culture Alt mental st,lethar; Clarity Extra Turbid (Clear); Glucose, Urine (Dipstick) Normal (Negative); Ketone, Urine Negative (Negative); Leukocyte 500 Leu/uL (Negative); Nitrite Negative (Negative); Protein, Urine (Dipstick) 200 mg/dL (Neg-Trace); Urobilinogen Normal mg/dL (Less than 2); WBC/HPF Greater than 50 HPF (0-3); pH, Urine 7.5 (5.0-9.0)
[2022-05-31 20:16] LABS: Urine Culture Reflex Yes Yes
[2022-05-31] MEDS ORDERED: diphenhydrAMINE 25 MG CAP PO PRN (20:23)
[2022-05-31] MEDS: cefTRIAXone\\ROCEPHIN 1 GM in Sodium Chloride 0.9% 100 ML IVPB SCH (21:11)
[2022-05-31] MEDS: Atorvastatin Calcium 40 MG TAB PO SCH (21:12)
[2022-05-31] MEDS: Metoprolol Tartrate 25 MG TAB PO SCH (21:13)
[2022-05-31] MEDS: NIFEdipine XL 90 MG TAB PO SCH (21:13)
[2022-05-31] MEDS: Losartan 25 MG TAB PO SCH (21:13)
[2022-05-31] MEDS: Famotidine 20 MG TAB PO SCH (21:14)
[2022-05-31] MEDS: Terazosin HCl 1 MG CAP PO SCH (21:15)
[2022-06-01] MEDS: Acetaminophen/Codeine 30-300mg Tablet PO SCH ×2 (03:54→06:54)
[2022-06-01] MEDS: Acetaminophen 325 MG TAB PO SCH ×5 (03:54→23:28)
[2022-06-01] MEDS: Levothyroxine Sodium 50 MCG TAB PO SCH (05:29)
[2022-06-01 05:31] LABS: #Eosinphils 0.1 thou/uL (0.0-0.7); #Lymphocytes 0.9 thou/uL (1.20-3.40); #Monocytes 0.7 thou/uL (0.11-0.59); #Neutrophils 5.3 thou/uL (1.40-6.50); %Basophils 0.2 % (0.0-1.0); %Eosinophils 1.8 % (0.0-10.0); %Lymphocytes 13.3 % (21.0-51.0); %Monocytes 9.5 % (0.0-10.0); %Neutrophils 75.2 % (42.0-75.0); Hemoglobin 9.6 g/dL (12.0-16.0); Mean Corpuscular HGB CONC 34.4 g/dL (32.0-36.0); Mean Corpuscular Hemoglobin 34.3 pg (27.0-31.0); Mean Corpuscular Volume 99.7 fl (78.0-98.0); Mean Platelet Volume 8.3 fL (7.4-10.4); Platelet Count 107 10x3/uL (130-400); RBC Distribution Width 15.1 % (11.5-14.5); Red Blood Cell (RBC) Count 2.79 mill/uL (4.20-5.40)
[2022-06-01 05:50] LABS: Anion Gap 14 mmol/L (10-20); BUN (Urea Nitrogen) 23 mg/dL (9.8-20.1); Calc. Creatinine Clearance 12 mL/min (70-130); Calcium 8.6 mg/dL (7.8-10.44); Carbon Dioxide 30 mmol/L (23-31); Chloride 98 mmol/L (98-107); Estimated GFR 8; Glucose 89 mg/dL (83-110); Potassium 4.4 mmol/L (3.5-5.1); Sodium 138 mmol/L (136-145)
[2022-06-01] MEDS: Icosapent Ethyl 1 GM CAPSULE PO SCH ×2 (09:37→19:57)
[2022-06-01] MEDS: Polyethylene Glycol 3350 17 GM Packet PO SCH (09:37)
[2022-06-01] MEDS: Sevelamer Carbonate 800 MG TAB PO SCH ×3 (09:38→18:55)
[2022-06-01] MEDS: Apixaban 2.5 MG TAB PO SCH ×2 (09:40→19:59)
[2022-06-01] MEDS: Aspirin 81 mg Enteric Coated Tablet PO SCH (09:40)
[2022-06-01] MEDS: Senokot S 8.6-50 MG TAB PO SCH ×2 (09:40→19:59)
[2022-06-01] MEDS: Clopidogrel Bisulfate 75 MG TAB PO SCH (09:40)
[2022-06-01] MEDS: Isosorbide Dinitrate 20 MG TAB PO SCH ×3 (09:40→19:59)
[2022-06-01] MEDS: Gabapentin 100 MG CAP PO SCH (09:40)
[2022-06-01] MEDS ORDERED: Acetaminophen/Codeine 30-300mg Tablet PO PRN ×2 (10:46→10:47)
[2022-06-01] MEDS ORDERED: Bisacodyl 10 MG SUPP PR SCH (11:00)
[2022-06-01] MEDS: Metoprolol Tartrate 25 MG TAB PO SCH ×2 (11:01→20:00)
[2022-06-01] MEDS: Sodium Chloride 0.9% 1,000 ML IV SCH ×2 (11:36→20:01)
[2022-06-01] MEDS: Ondansetron PF 4 MG/2 ML Vial IVP PRN (11:36)
[2022-06-01] MEDS: cefTRIAXone\\ROCEPHIN 1 GM in Sodium Chloride 0.9% 100 ML IVPB SCH (19:57)
[2022-06-01] MEDS: Terazosin HCl 1 MG CAP PO SCH (19:58)
[2022-06-01] MEDS: Atorvastatin Calcium 40 MG TAB PO SCH (19:59)
[2022-06-01] MEDS: Famotidine 20 MG TAB PO SCH (19:59)
[2022-06-01] MEDS: Losartan 25 MG TAB PO SCH (20:00)
[2022-06-02 05:39] LABS: #Eosinphils 0.1 thou/uL (0.0-0.7); #Lymphocytes 0.9 thou/uL (1.20-3.40); #Monocytes 0.9 thou/uL (0.11-0.59); #Neutrophils 7.1 thou/uL (1.40-6.50); %Basophils 0.4 % (0.0-1.0); %Eosinophils 0.9 % (0.0-10.0); %Lymphocytes 9.9 % (21.0-51.0); %Monocytes 10.1 % (0.0-10.0); %Neutrophils 78.7 % (42.0-75.0); Hemoglobin 9.4 g/dL (12.0-16.0); Mean Corpuscular HGB CONC 33.7 g/dL (32.0-36.0); Mean Corpuscular Hemoglobin 33.6 pg (27.0-31.0); Mean Corpuscular Volume 99.6 fl (78.0-98.0); Mean Platelet Volume 8.2 fL (7.4-10.4); Platelet Count 116 10x3/uL (130-400); RBC Distribution Width 14.8 % (11.5-14.5); Red Blood Cell (RBC) Count 2.79 mill/uL (4.20-5.40)
[2022-06-02 05:56] LABS: Anion Gap 19 mmol/L (10-20); BUN (Urea Nitrogen) 42 mg/dL (9.8-20.1); Calc. Creatinine Clearance 9 mL/min (70-130); Calcium 8.5 mg/dL (7.8-10.44); Carbon Dioxide 24 mmol/L (23-31); Chloride 100 mmol/L (98-107); Estimated GFR 6; Glucose 75 mg/dL (83-110); Potassium 4.8 mmol/L (3.5-5.1); Sodium 138 mmol/L (136-145)
[2022-06-02] MEDS: Acetaminophen 325 MG TAB PO SCH ×4 (06:10→23:26)
[2022-06-02] MEDS: Sodium Chloride 0.9% 1,000 ML IV SCH ×2 (06:10→16:24)
[2022-06-02] MEDS: Levothyroxine Sodium 50 MCG TAB PO SCH (06:10)
[2022-06-02] MEDS: Clopidogrel Bisulfate 75 MG TAB PO SCH (08:46)
[2022-06-02] MEDS: Aspirin 81 mg Enteric Coated Tablet PO SCH (08:46)
[2022-06-02] MEDS: Apixaban 2.5 MG TAB PO SCH ×2 (08:46→20:43)
[2022-06-02] MEDS: Senokot S 8.6-50 MG TAB PO SCH ×2 (08:46→20:44)
[2022-06-02] MEDS: Sevelamer Carbonate 800 MG TAB PO SCH ×3 (08:46→16:23)
[2022-06-02] MEDS: Polyethylene Glycol 3350 17 GM Packet PO SCH (08:47)
[2022-06-02] MEDS: Icosapent Ethyl 1 GM CAPSULE PO SCH ×2 (08:47→20:42)
[2022-06-02] MEDS: Isosorbide Dinitrate 20 MG TAB PO SCH ×2 (08:47→20:43)
[2022-06-02] MEDS: Metoprolol Tartrate 25 MG TAB PO SCH ×2 (08:47→20:44)
[2022-06-02] MEDS: Terazosin HCl 1 MG CAP PO SCH (20:42)
[2022-06-02] MEDS: Atorvastatin Calcium 40 MG TAB PO SCH (20:43)
[2022-06-02] MEDS: Losartan 25 MG TAB PO SCH (20:43)
[2022-06-02] MEDS: Famotidine 20 MG TAB PO SCH (20:43)
[2022-06-03] MEDS: Sodium Chloride 0.9% 1,000 ML IV SCH (01:45)
[2022-06-03] MEDS: Acetaminophen 325 MG TAB PO SCH ×3 (05:29→17:43)
[2022-06-03] MEDS: Levothyroxine Sodium 50 MCG TAB PO SCH (05:29)
[2022-06-03 06:03] LABS: #Eosinphils 0.1 thou/uL (0.0-0.7); #Monocytes 0.6 thou/uL (0.11-0.59); #Neutrophils 6.6 thou/uL (1.40-6.50); %Basophils 0.4 % (0.0-1.0); %Eosinophils 1.1 % (0.0-10.0); %Lymphocytes 12.2 % (21.0-51.0); %Neutrophils 79.3 % (42.0-75.0); Hemoglobin 9.2 g/dL (12.0-16.0); Mean Corpuscular HGB CONC 33.7 g/dL (32.0-36.0); Mean Corpuscular Hemoglobin 33.6 pg (27.0-31.0); Mean Corpuscular Volume 99.8 fl (78.0-98.0); Mean Platelet Volume 8.3 fL (7.4-10.4); Platelet Count 127 10x3/uL (130-400); RBC Distribution Width 15.1 % (11.5-14.5); Red Blood Cell (RBC) Count 2.73 mill/uL (4.20-5.40); White Blood Cell (WBC) Count 8.3 10x3/uL (4.8-10.8)
[2022-06-03 06:24] LABS: Anion Gap 16 mmol/L (10-20); BUN (Urea Nitrogen) 53 mg/dL (9.8-20.1); Calc. Creatinine Clearance 8 mL/min (70-130); Calcium 8.3 mg/dL (7.8-10.44); Carbon Dioxide 22 mmol/L (23-31); Chloride 103 mmol/L (98-107); Estimated GFR 5; Glucose 96 mg/dL (83-110); Magnesium 2.5 mg/dL (1.6-2.6); Phosphorus 6.5 mg/dL (2.3-4.7); Sodium 136 mmol/L (136-145)
[2022-06-03] MEDS: Icosapent Ethyl 1 GM CAPSULE PO SCH (09:28)
[2022-06-03] MEDS: Sevelamer Carbonate 800 MG TAB PO SCH ×3 (09:29→17:42)
[2022-06-03] MEDS: Apixaban 2.5 MG TAB PO SCH (09:29)
[2022-06-03] MEDS: Clopidogrel Bisulfate 75 MG TAB PO SCH (09:29)
[2022-06-03] MEDS: Senokot S 8.6-50 MG TAB PO SCH (09:29)
[2022-06-03] MEDS: Metoprolol Tartrate 25 MG TAB PO SCH (09:29)
[2022-06-03] MEDS: Isosorbide Dinitrate 20 MG TAB PO SCH ×2 (09:29→17:43)
[2022-06-03] MEDS: Aspirin 81 mg Enteric Coated Tablet PO SCH (09:29)
[2022-06-03] MEDS: Polyethylene Glycol 3350 17 GM Packet PO SCH (09:30)
[2022-06-03] MEDS ORDERED: hydrALAZINE 20 MG/ML VIAL SLOW IVP PRN (09:47)
[2022-06-03 17:25] VITALS: BP 157/69; TEMP 98
== END 2022-06-03 19:30 | DRG 535 ==
LOC: ERS 12:58 → SURG A 18:45
PROVIDERS: ADMIT Specialist; ATTEND Specialist
PROC: 5A1D70Z Performance of Urinary Filtration, Intermittent, Less than 6 Hours Per Day (ICD-10-PCS; principal; 2022-05-29)
DX: S72.22XA Displaced subtrochanteric fracture of left femur, initial encounter for closed fracture (principal); N18.6 End stage renal disease; I12.0 Hypertensive chronic kidney disease with stage 5 chronic kidney disease or end stage renal disease; Z20.822 Contact with and (suspected) exposure to COVID-19; E78.5 Hyperlipidemia, unspecified; D63.1 Anemia in chronic kidney disease; E11.51 Type 2 diabetes mellitus with diabetic peripheral angiopathy without gangrene; I25.10 Atherosclerotic heart disease of native coronary artery without angina pectoris; E11.22 Type 2 diabetes mellitus with diabetic chronic kidney disease; I95.9 Hypotension, unspecified; Z60.2 Problems related to living alone; E83.39 Other disorders of phosphorus metabolism; I48.91 Unspecified atrial fibrillation; Z95.2 Presence of prosthetic heart valve; Z95.1 Presence of aortocoronary bypass graft; Z79.82 Long term (current) use of aspirin; Z79.02 Long term (current) use of antithrombotics/antiplatelets; Z86.73 Personal history of transient ischemic attack (TIA), and cerebral infarction without residual deficits; Z99.2 Dependence on renal dialysis; Z90.49 Acquired absence of other specified parts of digestive tract; Z90.710 Acquired absence of both cervix and uterus; Z88.0 Allergy status to penicillin; W01.0XXA Fall on same level from slipping, tripping and stumbling without subsequent striking against object, initial encounter
CPT/HCPCS: 36415; 36416; 70450; 71045; 72170; 80048; 80053; 81001; 82140; 83735; 84100; 85025; 85610; 85730; 86704; 86850; 86900; 86901; 87086; 90935; 93005; 96374; G0257; G0390; J0360; J0696; J1644; J1815; J2405; J3010; J3490; J7050; Q0162; Q5105; U0003; U0005

== ENCOUNTER 2023-06-30 14:11 | Emergency (ER) | payer MEDICARE, OTHER | END 2023-06-30 14:43 | disposition home or self-care (01) | LOC: ERS 14:11 | DX: S00.12XA Contusion of left eyelid and periocular area, initial encounter (principal); W01.10XA Fall on same level from slipping, tripping and stumbling with subsequent striking against unspecified object, initial encounter; Y93.01 Activity, walking, marching and hiking; Y92.009 Unspecified place in unspecified non-institutional (private) residence as the place of occurrence of the external cause | CPT/HCPCS: 70450; 70486; 72125; 93005 ==

== ENCOUNTER 2023-11-02 10:28 | Inpatient (IN) | payer MEDICARE, OTHER ==
[2023-11-02] MEDS ORDERED: Magnevist 469MG/ML 20 ML VIAL ONE (10:59)
[2023-11-02] MEDS ORDERED: Sodium Chloride 0.9% 100 ML ONE (11:29)
[2023-11-02] MEDS ORDERED: Cefepime 2 GM VIAL ONE (11:29)
[2023-11-02 11:47] LABS: #Basophils Less than 0.03 10x3/uL (0.0-0.2); %Basophils 0.2 % (0.0-1.0); %Eosinophils 0.3 % (0.0-10.0); %Lymphocytes 10.4 % (21.0-51.0); %Monocytes 6.2 % (0.0-10.0); %Neutrophils 82.5 % (42.0-75.0); Hematocrit 17.6 % (36.0-47.0); Hemoglobin 5.9 g/dL (12.0-16.0); Mean Corpuscular HGB CONC 33.5 g/dL (32.0-36.0); Mean Corpuscular Hemoglobin 32.6 pg (27.0-31.0); Mean Corpuscular Volume 97.2 fL (78.0-98.0); Mean Platelet Volume 10.7 fL (7.4-10.4); Platelet Count 187 10x3/uL (130-400); RBC Distribution Width 16.2 % (11.5-14.5); Red Blood Cell (RBC) Count 1.81 mill/uL (4.20-5.40)
[2023-11-02 12:11] LABS: ALT (SGPT) 13 U/L (8-55); AST (SGOT) 20 U/L (5-34); Albumin 3.2 g/dL (3.4-4.8); Alkaline Phosphatase 63 U/L (40-110); Anion Gap 15 mmol/L (10-20); BUN (Urea Nitrogen) 29 mg/dL (9.8-20.1); Bilirubin, Total 0.8 mg/dL (0.2-1.2); Calc. Creatinine Clearance 0 mL/min (70-130); Calcium 8.8 mg/dL (7.8-10.44); Carbon Dioxide 28 mmol/L (23-31); Chloride 94 mmol/L (98-107); Estimated GFR 7; Globulin 3.1 g/dL (2.4-3.5); Glucose 201 mg/dL (83-110); Potassium 3.9 mmol/L (3.5-5.1); Protein, Total 6.3 g/dL (5.8-8.1); Sodium 133 mmol/L (136-145)
[2023-11-02 13:21] LABS: #Basophils Less than 0.03 10x3/uL (0.0-0.2); %Basophils 0.2 % (0.0-1.0); %Eosinophils 0.5 % (0.0-10.0); %Lymphocytes 13.5 % (21.0-51.0); %Monocytes 7.7 % (0.0-10.0); %Neutrophils 77.9 % (42.0-75.0); Hematocrit 26.9 % (36.0-47.0); Mean Corpuscular HGB CONC 33.5 g/dL (32.0-36.0); Mean Corpuscular Hemoglobin 33.3 pg (27.0-31.0); Mean Corpuscular Volume 99.6 fL (78.0-98.0); Mean Platelet Volume 10.4 fL (7.4-10.4); Platelet Count 158 10x3/uL (130-400); RBC Distribution Width 16.3 % (11.5-14.5)
[2023-11-02] MEDS: Vancomycin (BATCH) 2 GM in Premix 1 BAG IVPB SCH (15:25)
[2023-11-02 15:28] VITALS: BMI 27.1
[2023-11-02] MEDS ORDERED: Acetaminophen 325 MG TAB PO PRN (16:08)
[2023-11-02] MEDS ORDERED: Ondansetron PF 4 MG/2 ML Vial IVP PRN (16:08)
[2023-11-02] MEDS ORDERED: Acetaminophen/Codeine 30-300mg Tablet PO PRN (16:08)
[2023-11-02] MEDS ORDERED: Vancomycin Diaylsis Sliding Scale (Wt 71-99) FS SCH (16:45)
[2023-11-02] MEDS ORDERED: Vancomycin 1 GM in Premix 1 BAG IVPB SCH (21:00)
[2023-11-02] MEDS: Sevelamer Carbonate 800 MG TAB PO SCH (21:26)
[2023-11-02] MEDS: Atorvastatin Calcium 40 MG TAB PO SCH (21:26)
[2023-11-02] MEDS: traMADol HCl 50 MG TAB PO SCH (21:27)
[2023-11-02] MEDS: NIFEdipine XL 90 MG ER.TAB PO SCH (21:27)
[2023-11-02] MEDS: Isosorbide Dinitrate 20 MG TAB PO SCH (21:27)
[2023-11-02] MEDS: Losartan 25 MG TAB PO SCH (21:28)
[2023-11-02] MEDS: Terazosin HCl 1 MG CAP PO SCH (21:28)
[2023-11-02] MEDS: Heparin 5,000 UNITS/ML VIAL SC SCH (21:29)
[2023-11-03] MEDS: Levothyroxine Sodium 50 MCG TAB PO SCH (05:56)
[2023-11-03 07:19] LABS: #Basophils 0.03 10x3/uL (0.0-0.2); %Basophils 0.3 % (0.0-1.0); %Eosinophils 1.2 % (0.0-10.0); %Lymphocytes 8.5 % (21.0-51.0); %Monocytes 5.2 % (0.0-10.0); %Neutrophils 84.4 % (42.0-75.0); Hematocrit 27.1 % (36.0-47.0); Hemoglobin 9.1 g/dL (12.0-16.0); Mean Corpuscular HGB CONC 33.6 g/dL (32.0-36.0); Mean Corpuscular Hemoglobin 33.3 pg (27.0-31.0); Mean Corpuscular Volume 99.3 fL (78.0-98.0); Mean Platelet Volume 10.2 fL (7.4-10.4); Platelet Count 159 10x3/uL (130-400); RBC Distribution Width 16.4 % (11.5-14.5); Red Blood Cell (RBC) Count 2.73 mill/uL (4.20-5.40)
[2023-11-03 07:40] LABS: Vancomycin, Trough 22.1 ug/mL
[2023-11-03 07:42] LABS: Anion Gap 17 mmol/L (10-20); BUN (Urea Nitrogen) 36 mg/dL (9.8-20.1); Calc. Creatinine Clearance 8 mL/min (70-130); Calcium 8.8 mg/dL (7.8-10.44); Carbon Dioxide 28 mmol/L (23-31); Chloride 95 mmol/L (98-107); Estimated GFR 5; Glucose 108 mg/dL (83-110); Potassium 4.2 mmol/L (3.5-5.1); Sodium 136 mmol/L (136-145)
[2023-11-03] MEDS: Cholecalciferol 1,000 UNITS (25 MCG) TAB PO SCH (07:49)
[2023-11-03] MEDS: Aspirin 81 mg Enteric Coated Tablet PO SCH (07:49)
[2023-11-03 09:47] LABS: HBSAB Concentration 130.33 mIU/mL; HBsAg Index 0.25 S/CO (0-0.99); Hep B Core Total Ab NONREACTIVE (NonReactive); Hep B Surf AB REACTIVE (NonReactive); Hep B Surf Ag NONREACTIVE S/CO (NonReactive); Hep C IgG Ab NONREACTIVE S/CO (NonReactive); Hep C Index 0.11 S/CO (0-0.79)
[2023-11-03] MEDS: EPOETIN ALFA-EPBX (ESRD) 10,000 UNITS/ML VIAL SC SCH (12:19)
[2023-11-03 13:18] VITALS: BMI 27.1
[2023-11-03] MEDS: HYDROcodone/Acetaminophen 10/325 mg Tablet PO PRN (14:45)
[2023-11-03] MEDS: Cefepime 1 GM in Sodium Chloride 0.9% 100 ML IVPB SCH (16:08)
[2023-11-03] MEDS: Vancomycin 250 MG in Sodium Chloride 0.9% 100 ML IVPB SCH (17:50)
[2023-11-04 08:13] LABS: #Basophils 0.03 10x3/uL (0.0-0.2); %Basophils 0.3 % (0.0-1.0); %Eosinophils 1.6 % (0.0-10.0); %Lymphocytes 5.8 % (21.0-51.0); %Monocytes 4.5 % (0.0-10.0); %Neutrophils 87.2 % (42.0-75.0); Hematocrit 27.5 % (36.0-47.0); Hemoglobin 9.2 g/dL (12.0-16.0); Mean Corpuscular HGB CONC 33.5 g/dL (32.0-36.0); Mean Corpuscular Hemoglobin 32.9 pg (27.0-31.0); Mean Corpuscular Volume 98.2 fL (78.0-98.0); Platelet Count 155 10x3/uL (130-400); RBC Distribution Width 17.2 % (11.5-14.5)
[2023-11-04 08:24] LABS: Anion Gap 15 mmol/L (10-20); BUN (Urea Nitrogen) 18 mg/dL (9.8-20.1); Calc. Creatinine Clearance 10 mL/min (70-130); Calcium 9.1 mg/dL (7.8-10.44); Carbon Dioxide 28 mmol/L (23-31); Chloride 99 mmol/L (98-107); Estimated GFR 8; Glucose 92 mg/dL (83-110); Potassium 4.3 mmol/L (3.5-5.1); Sodium 138 mmol/L (136-145)
[2023-11-04] MEDS ORDERED: PROPOFOL 20 ML ONE (11:22)
[2023-11-04] MEDS ORDERED: fentaNYL PF 100 MCG/2 ML SYRINGE ONE ×2 (11:22→11:43)
[2023-11-04] MEDS ORDERED: PHENYLEPHRINE-NS 100 MCG/ML 10 ML SYRINGE ONE (11:38)
[2023-11-04] MEDS ORDERED: Ondansetron PF 4 MG/2 ML Vial ONE (11:55)
[2023-11-04] MEDS ORDERED: diphenhydrAMINE 50 MG/ML VIAL ONE (11:55)
[2023-11-04] MEDS ORDERED: HYDROmorphone 2 MG/ML VIAL ONE (12:07)
[2023-11-04] MEDS ORDERED: Promethazine HCl 25 MG/ML VIAL IM PRN (12:23)
[2023-11-04] MEDS ORDERED: HYDROmorphone 2 MG/ML VIAL SLOW IVP PRN (12:23)
[2023-11-04] MEDS ORDERED: Ondansetron HCl/PF 4 MG/2 ML Vial IVP PRN (12:23)
[2023-11-04] MEDS ORDERED: Morphine 4 MG/ML VIAL SLOW IVP PRN (15:58)
[2023-11-04] MEDS: Morphine 2 MG/ML VIAL SLOW IVP PRN (18:01)
[2023-11-05 04:41] LABS: #Basophils Less than 0.03 10x3/uL (0.0-0.2); %Basophils 0.3 % (0.0-1.0); %Eosinophils 1.6 % (0.0-10.0); %Lymphocytes 8.4 % (21.0-51.0); %Monocytes 9.1 % (0.0-10.0); %Neutrophils 80.2 % (42.0-75.0); Hematocrit 26.1 % (36.0-47.0); Hemoglobin 8.7 g/dL (12.0-16.0); Mean Corpuscular HGB CONC 33.3 g/dL (32.0-36.0); Mean Corpuscular Hemoglobin 32.7 pg (27.0-31.0); Mean Corpuscular Volume 98.1 fL (78.0-98.0); Platelet Count 159 10x3/uL (130-400); RBC Distribution Width 17.2 % (11.5-14.5); Red Blood Cell (RBC) Count 2.66 mill/uL (4.20-5.40)
[2023-11-05] MEDS: Metoprolol Tartrate 5 MG (5 mL) VIAL IVP SCH (04:43)
[2023-11-05 05:18] LABS: Anion Gap 18 mmol/L (10-20); BUN (Urea Nitrogen) 27 mg/dL (9.8-20.1); Calc. Creatinine Clearance 8 mL/min (70-130); Calcium 8.6 mg/dL (7.8-10.44); Carbon Dioxide 26 mmol/L (23-31); Chloride 99 mmol/L (98-107); Estimated GFR 6; Glucose 96 mg/dL (83-110); Magnesium 2.3 mg/dL (1.6-2.6); Potassium 4.2 mmol/L (3.5-5.1); Sodium 139 mmol/L (136-145)
[2023-11-05 16:21] VITALS: BP 152/78
[2023-11-06 08:24] LABS: #Basophils Less than 0.03 10x3/uL (0.0-0.2); %Basophils 0.3 % (0.0-1.0); %Eosinophils 1.8 % (0.0-10.0); %Lymphocytes 8.6 % (21.0-51.0); %Neutrophils 77.7 % (42.0-75.0); Hematocrit 26.7 % (36.0-47.0); Hemoglobin 8.6 g/dL (12.0-16.0); Mean Corpuscular HGB CONC 32.2 g/dL (32.0-36.0); Mean Corpuscular Volume 102.3 fL (78.0-98.0); Mean Platelet Volume 10.5 fL (7.4-10.4); Platelet Count 178 10x3/uL (130-400); RBC Distribution Width 17.2 % (11.5-14.5); Red Blood Cell (RBC) Count 2.61 mill/uL (4.20-5.40)
[2023-11-06 08:42] LABS: Anion Gap 16 mmol/L (10-20); BUN (Urea Nitrogen) 24 mg/dL (9.8-20.1); Calc. Creatinine Clearance 11 mL/min (70-130); Calcium 8.8 mg/dL (7.8-10.44); Carbon Dioxide 27 mmol/L (23-31); Chloride 101 mmol/L (98-107); Estimated GFR 8; Glucose 118 mg/dL (83-110); Potassium 3.7 mmol/L (3.5-5.1); Sodium 140 mmol/L (136-145)
[2023-11-06 13:29] VITALS: TEMP 98
== END 2023-11-06 17:20 | disposition home or self-care (01) | DRG 239 ==
LOC: ERS 10:28 → T4-A 15:12 → IMCU/EMU 11-05 04:15
PROVIDERS: ADMIT Internal Medicine; ATTEND Internal Medicine
PROC: 5A1D70Z Performance of Urinary Filtration, Intermittent, Less than 6 Hours Per Day (ICD-10-PCS; 2023-11-03)
PROC: 0Y6J0Z3 Detachment at Left Lower Leg, Low, Open Approach (ICD-10-PCS; principal; 2023-11-04)
DX: E11.52 Type 2 diabetes mellitus with diabetic peripheral angiopathy with gangrene (principal); N18.6 End stage renal disease; L03.116 Cellulitis of left lower limb; I96 Gangrene, not elsewhere classified; E87.1 Hypo-osmolality and hyponatremia; I12.0 Hypertensive chronic kidney disease with stage 5 chronic kidney disease or end stage renal disease; L97.222 Non-pressure chronic ulcer of left calf with fat layer exposed; L97.421 Non-pressure chronic ulcer of left heel and midfoot limited to breakdown of skin; Z88.0 Allergy status to penicillin; E11.22 Type 2 diabetes mellitus with diabetic chronic kidney disease; E78.5 Hyperlipidemia, unspecified; I48.91 Unspecified atrial fibrillation; I25.10 Atherosclerotic heart disease of native coronary artery without angina pectoris; Z90.49 Acquired absence of other specified parts of digestive tract; Z90.710 Acquired absence of both cervix and uterus; Z96.641 Presence of right artificial hip joint; D63.1 Anemia in chronic kidney disease; E03.9 Hypothyroidism, unspecified; Z79.899 Other long term (current) drug therapy; Z79.4 Long term (current) use of insulin; Z79.82 Long term (current) use of aspirin; E11.621 Type 2 diabetes mellitus with foot ulcer; I70.244 Atherosclerosis of native arteries of left leg with ulceration of heel and midfoot; I70.212 Atherosclerosis of native arteries of extremities with intermittent claudication, left leg; L97.512 Non-pressure chronic ulcer of other part of right foot with fat layer exposed; L97.522 Non-pressure chronic ulcer of other part of left foot with fat layer exposed
CPT/HCPCS: 36415; 36416; 80048; 80053; 80202; 83605; 83735; 84443; 85025; 86141; 86704; 86706; 86803; 87040; 87340; 88307; 88311; 90935; 93005; 93010; 96374; 96375; 97139; 99215; A9579; G0257; G0463; J0692; J1170; J1200; J1644; J2272; J2405; J2704; J3370; J3371; J3490; Q5105

== ENCOUNTER 2024-01-11 09:03 | Outpatient (CLI) | payer MEDICARE, OTHER ==
[2024-01-11 09:49] LABS: #Basophils 0.03 10x3/uL (0.0-0.2); %Basophils 0.4 % (0.0-1.0); %Eosinophils 2.7 % (0.0-10.0); %Lymphocytes 10.8 % (21.0-51.0); %Monocytes 9.4 % (0.0-10.0); %Neutrophils 76.3 % (42.0-75.0); Hematocrit 37.3 % (36.0-47.0); Hemoglobin 11.8 g/dL (12.0-16.0); Mean Corpuscular HGB CONC 31.6 g/dL (32.0-36.0); Mean Corpuscular Hemoglobin 31.2 pg (27.0-31.0); Mean Corpuscular Volume 98.7 fL (78.0-98.0); Mean Platelet Volume 10.4 fL (7.4-10.4); Platelet Count 218 10x3/uL (130-400); RBC Distribution Width 16.2 % (11.5-14.5); Red Blood Cell (RBC) Count 3.78 mill/uL (4.20-5.40)
[2024-01-11 10:15] LABS: Anion Gap 17 mmol/L (10-20); BUN (Urea Nitrogen) 36 mg/dL (9.8-20.1); Calc. Creatinine Clearance 0 mL/min (70-130); Calcium 9.3 mg/dL (7.8-10.44); Carbon Dioxide 28 mmol/L (23-31); Chloride 95 mmol/L (98-107); Estimated GFR 7; Glucose 122 mg/dL (83-110); Potassium 4.7 mmol/L (3.5-5.1); Sodium 135 mmol/L (136-145)
== END 2024-01-11 09:04 | disposition home or self-care (01) ==
LOC: LABBT 09:03
PROVIDERS: ATTEND Thoracic Surgery (Cardiothoracic Vascular Surgery)
DX: Z01.812 Encounter for preprocedural laboratory examination (principal); I73.9 Peripheral vascular disease, unspecified
CPT/HCPCS: 80048; 85025

== ENCOUNTER 2024-01-13 06:17 | Day surgery (SDC) | payer MEDICARE, OTHER ==
[2024-01-11 09:23] VITALS: BMI 25.8
[2024-01-13] MEDS ORDERED: Dextrose 50% Abboject 50 ML SYRINGE ONE (08:04)
[2024-01-13] MEDS ORDERED: Heparin 10,000 UNITS/ 10 ML VIAL ONE (08:42)
== END 2024-01-13 13:50 | disposition home or self-care (01) ==
LOC: CCL 06:17
PROVIDERS: ATTEND Thoracic Surgery (Cardiothoracic Vascular Surgery)
PROC: B40DYZZ Plain Radiography of Aorta and Bilateral Lower Extremity Arteries using Other Contrast (ICD-10-PCS; principal; 2024-01-13)
PROC: B40JYZZ Plain Radiography of Other Lower Arteries using Other Contrast (ICD-10-PCS; 2024-01-13)
DX: I70.262 Atherosclerosis of native arteries of extremities with gangrene, left leg (principal); I12.0 Hypertensive chronic kidney disease with stage 5 chronic kidney disease or end stage renal disease; N18.6 End stage renal disease; E11.22 Type 2 diabetes mellitus with diabetic chronic kidney disease; D63.1 Anemia in chronic kidney disease; Z98.890 Other specified postprocedural states; E78.5 Hyperlipidemia, unspecified; I25.10 Atherosclerotic heart disease of native coronary artery without angina pectoris; E03.9 Hypothyroidism, unspecified; Z79.82 Long term (current) use of aspirin; Z79.84 Long term (current) use of oral hypoglycemic drugs; Z79.899 Other long term (current) drug therapy; Z88.0 Allergy status to penicillin; Z95.1 Presence of aortocoronary bypass graft; Z96.641 Presence of right artificial hip joint; Z90.49 Acquired absence of other specified parts of digestive tract; Z95.818 Presence of other cardiac implants and grafts
CPT/HCPCS: 37226; 85347; C1725 ×2; C1760; C1769 ×5; C1874; C1887 ×2; C1894; J1644; J7999; 36416; 75625; 75710; 75774

== ENCOUNTER 2024-02-05 15:40 | Emergency (ER) | payer MEDICARE, OTHER | END 2024-02-05 16:08 | disposition home or self-care (01) | LOC: ERS 15:40 | DX: I48.20 Chronic atrial fibrillation, unspecified (principal); E11.22 Type 2 diabetes mellitus with diabetic chronic kidney disease; N18.9 Chronic kidney disease, unspecified; I25.10 Atherosclerotic heart disease of native coronary artery without angina pectoris; Z79.82 Long term (current) use of aspirin; Z55.0 Illiteracy and low-level literacy | CPT/HCPCS: 93005; 99285 ==

== ENCOUNTER 2025-02-07 18:52 | Inpatient (IN) | payer MEDICARE, OTHER ==
[2025-02-07] MEDS ORDERED: Acetaminophen 500 MG TAB ONE (19:33)
[2025-02-07 19:57] LABS: #Basophils 0.04 10x3/uL (0.0-0.2); #Eosinophils Less than 0.03 10x3/uL (0.0-0.7); #Monocytes 0.46 10x3/uL (0.11-0.59); #Neutrophils 9.11 10x3/uL (1.40-6.50); %Basophils 0.4 % (0.0-1.0); %Eosinophils 0.0 % (0.0-10.0); %Lymphocytes 2.8 % (21.0-51.0); %Monocytes 4.6 % (0.0-10.0); %Neutrophils 91.3 % (42.0-75.0); Hematocrit 29.8 % (36.0-47.0); Hemoglobin 9.9 g/dL (12.0-16.0); Mean Corpuscular Hemoglobin 33.0 pg (27.0-31.0); Mean Corpuscular Volume 99.3 fL (78.0-98.0); Platelet Count 145 10x3/uL (130-400); Red Blood Cell (RBC) Count 3.00 mill/uL (4.20-5.40); White Blood Cell (WBC) Count 9.98 10x3/uL (4.8-10.8)
[2025-02-07 20:14] LABS: ALT (SGPT) 25 U/L (Less than 34); AST (SGOT) 37 U/L (11-34); Albumin 3.8 g/dL (3.1-4.5); Alkaline Phosphatase 69 U/L (40-110); Anion Gap 24 mmol/L (10-20); BUN (Urea Nitrogen) 51 mg/dL (9.8-20.1); Bilirubin, Total 1.0 mg/dL (0.3-1.2); Calc. Creatinine Clearance 0 mL/min (70-130); Calcium 9.1 mg/dL (7.8-10.44); Carbon Dioxide 22 mmol/L (23-31); Chloride 90 mmol/L (98-107); Globulin 3.2 g/dL (2.4-3.5); Glucose 344 mg/dL (83-110); Potassium 5.7 mmol/L (3.5-5.1); Sodium 130 mmol/L (136-145)
[2025-02-07 20:19] LABS: Actual Bicarbonate (HCO3v) 20.7 mEq/L (22-28); Analyzer IN Cardio ER; Base Excess -3.0 mEq/L (-2.0 to +3.0); Calcium, Ionized (venous) 1.02 mmol/L (1.16-1.32); Chloride (VBG) 90 mmol/L (98-106); Hematocrit-VBG 32 % (36.0-47.0); Hemoglobin (Hb) 10.8 g/dL (11.7-16.1); Potassium (VBG) 5.56 mmol/L (3.70-5.30); Sodium 129 mmol/L (133-146)
[2025-02-07] MEDS ORDERED: VANCOMYCIN 2 GRAM/400 ML BAG ONE (20:44)
[2025-02-07] MEDS ORDERED: Calcium Carbonate 500 MG ChewTAB PO PRN (22:07)
[2025-02-07] MEDS ORDERED: Guaifenesin DM 100-10/5 ML UDCUP PO PRN (22:07)
[2025-02-07] MEDS ORDERED: Ondansetron PF 4 MG/2 ML Vial IVP PRN (22:07)
[2025-02-07] MEDS ORDERED: Dextrose 50% Abboject 50 ML SYRINGE SLOW IVP PRN (22:10)
[2025-02-07] MEDS ORDERED: Glucagon 1 MG/ML KIT IM PRN (22:10)
[2025-02-07 22:49] VITALS: BMI 32.5
[2025-02-07] MEDS ORDERED: Vancomycin Diaylsis Sliding Scale (Wt 71-99) FS SCH (23:45)
[2025-02-07] MEDS: Acetaminophen 325 MG TAB PO SCH (23:51)
[2025-02-08] MEDS: Metoprolol Tartrate 5 MG (5 mL) VIAL IVP SCH (06:12)
[2025-02-08 06:15] LABS: #Eosinophils Less than 0.03 10x3/uL (0.0-0.7); %Monocytes 6.4 % (0.0-10.0); Hemoglobin 10.0 g/dL (12.0-16.0)
[2025-02-08] MEDS ORDERED: Epoetin (ESRD) 20,000 UNITS/ML MDV SC SCH (07:00)
[2025-02-08] MEDS: Cholecalciferol 1,000 UNITS (25 MCG) TAB PO SCH (08:42)
[2025-02-08] MEDS: Sertraline 25 MG TAB PO SCH (08:42)
[2025-02-08] MEDS: Heparin 5,000 UNITS/ML VIAL SC SCH (08:43)
[2025-02-08] MEDS: Aspirin 81 mg Enteric Coated Tablet PO SCH (08:44)
[2025-02-08] MEDS ORDERED: Vancomycin 1 GM in Sodium Chloride 0.9% 250 ML 250 ML IVPB SCH (09:00)
[2025-02-08 09:03] LABS: #Basophils 0.03 10x3/uL (0.0-0.2); #Monocytes 0.62 10x3/uL (0.11-0.59); #Neutrophils 8.16 10x3/uL (1.40-6.50); %Basophils 0.3 % (0.0-1.0); %Eosinophils 0.2 % (0.0-10.0); %Lymphocytes 7.7 % (21.0-51.0); %Neutrophils 84.4 % (42.0-75.0); Hematocrit 31.1 % (36.0-47.0); Mean Corpuscular Hemoglobin 34.5 pg (27.0-31.0); Mean Corpuscular Volume 107.2 fL (78.0-98.0); Platelet Count 143 10x3/uL (130-400); Red Blood Cell (RBC) Count 2.90 mill/uL (4.20-5.40); White Blood Cell (WBC) Count 9.67 10x3/uL (4.8-10.8)
[2025-02-08 09:19] LABS: Vancomycin, Trough 31.9 ug/mL
[2025-02-08 09:32] LABS: HBSAB Concentration 80.82 mIU/mL; Hep B Core Total Ab NONREACTIVE (NonReactive); Hep B Core Total Index 0.11 S/CO (0-0.79); Hep B Surf Ag NONREACTIVE S/CO (NonReactive); Hep C IgG Ab NONREACTIVE S/CO (NonReactive); Hep C Index 0.13 S/CO (0-0.79)
[2025-02-08] MEDS: EPOETIN ALFA-EPBX (ESRD) 10,000 UNITS/ML VIAL SC SCH (13:21)
[2025-02-08 13:29] LABS: Anion Gap 26 mmol/L (10-20); BUN (Urea Nitrogen) 50 mg/dL (9.8-20.1); Calc. Creatinine Clearance 7 mL/min (70-130); Calcium 9.3 mg/dL (7.8-10.44); Carbon Dioxide 17 mmol/L (23-31); Chloride 95 mmol/L (98-107); Glucose 221 mg/dL (83-110); Potassium 5.7 mmol/L (3.5-5.1); Sodium 132 mmol/L (136-145)
[2025-02-08] MEDS: Isosorbide Mononitrate 30 MG ER.TAB.S PO SCH (19:54)
[2025-02-08] MEDS: Insulin Glargine 30 UNITS/0.3 ML VIAL SC SCH (19:54)
[2025-02-08] MEDS: Losartan 25 MG TAB PO SCH (19:54)
[2025-02-08] MEDS: NIFEdipine XL 90 MG ER.TAB PO SCH (19:55)
[2025-02-08] MEDS: Cyanocobalamin (Vitamin B-12) 1,000 MCG TAB PO SCH (19:56)
[2025-02-09 05:16] LABS: #Basophils Less than 0.03 10x3/uL (0.0-0.2); #Eosinophils Less than 0.03 10x3/uL (0.0-0.7); #Monocytes 0.55 10x3/uL (0.11-0.59); #Neutrophils 5.93 10x3/uL (1.40-6.50); %Basophils 0.3 % (0.0-1.0); %Eosinophils 0.0 % (0.0-10.0); %Lymphocytes 5.5 % (21.0-51.0); %Monocytes 7.9 % (0.0-10.0); %Neutrophils 85.6 % (42.0-75.0); Hematocrit 26.1 % (36.0-47.0); Hemoglobin 8.2 g/dL (12.0-16.0); Mean Corpuscular Hemoglobin 32.4 pg (27.0-31.0); Mean Corpuscular Volume 103.2 fL (78.0-98.0); Platelet Count 118 10x3/uL (130-400); Red Blood Cell (RBC) Count 2.53 mill/uL (4.20-5.40); White Blood Cell (WBC) Count 6.93 10x3/uL (4.8-10.8)
[2025-02-09 05:30] LABS: Anion Gap 23 mmol/L (10-20); BUN (Urea Nitrogen) 38 mg/dL (9.8-20.1); Calc. Creatinine Clearance 10 mL/min (70-130); Calcium 8.6 mg/dL (7.8-10.44); Carbon Dioxide 22 mmol/L (23-31); Chloride 95 mmol/L (98-107); Glucose 211 mg/dL (83-110); Potassium 4.5 mmol/L (3.5-5.1); Sodium 135 mmol/L (136-145)
[2025-02-09 18:10] LABS: Vancomycin, Trough 15.4 ug/mL
[2025-02-09] MEDS: Vancomycin HCl 750 MG in Sodium Chloride 0.9% 250 ML 250 ML IVPB SCH (23:22)
[2025-02-10 05:19] LABS: Anion Gap 16 mmol/L (10-20); BUN (Urea Nitrogen) 25 mg/dL (9.8-20.1); Calc. Creatinine Clearance 14 mL/min (70-130); Calcium 8.6 mg/dL (7.8-10.44); Carbon Dioxide 30 mmol/L (23-31); Chloride 96 mmol/L (98-107); Glucose 112 mg/dL (83-110); Potassium 3.9 mmol/L (3.5-5.1); Sodium 138 mmol/L (136-145)
[2025-02-10 05:21] LABS: #Basophils 0.03 10x3/uL (0.0-0.2); #Eosinophils 0.16 10x3/uL (0.0-0.7); #Monocytes 0.53 10x3/uL (0.11-0.59); #Neutrophils 2.96 10x3/uL (1.40-6.50); %Basophils 0.7 % (0.0-1.0); %Eosinophils 3.6 % (0.0-10.0); %Lymphocytes 16.2 % (21.0-51.0); %Monocytes 11.9 % (0.0-10.0); %Neutrophils 66.7 % (42.0-75.0); Hematocrit 24.8 % (36.0-47.0); Hemoglobin 7.8 g/dL (12.0-16.0); Mean Corpuscular Hemoglobin 32.2 pg (27.0-31.0); Mean Corpuscular Volume 102.5 fL (78.0-98.0); Platelet Count 126 10x3/uL (130-400); Red Blood Cell (RBC) Count 2.42 mill/uL (4.20-5.40); White Blood Cell (WBC) Count 4.44 10x3/uL (4.8-10.8)
[2025-02-11 05:19] LABS: #Basophils Less than 0.03 10x3/uL (0.0-0.2); #Eosinophils 0.19 10x3/uL (0.0-0.7); #Monocytes 0.51 10x3/uL (0.11-0.59); #Neutrophils 3.29 10x3/uL (1.40-6.50); %Basophils 0.4 % (0.0-1.0); %Eosinophils 3.9 % (0.0-10.0); %Lymphocytes 17.3 % (21.0-51.0); %Monocytes 10.4 % (0.0-10.0); %Neutrophils 66.8 % (42.0-75.0); Hematocrit 25.5 % (36.0-47.0); Hemoglobin 8.1 g/dL (12.0-16.0); Mean Corpuscular Hemoglobin 32.3 pg (27.0-31.0); Mean Corpuscular Volume 101.6 fL (78.0-98.0); Platelet Count 130 10x3/uL (130-400); Red Blood Cell (RBC) Count 2.51 mill/uL (4.20-5.40); White Blood Cell (WBC) Count 4.92 10x3/uL (4.8-10.8)
[2025-02-11 05:48] LABS: Anion Gap 16 mmol/L (10-20); BUN (Urea Nitrogen) 38 mg/dL (9.8-20.1); Calc. Creatinine Clearance 10 mL/min (70-130); Calcium 8.6 mg/dL (7.8-10.44); Carbon Dioxide 29 mmol/L (23-31); Chloride 94 mmol/L (98-107); Glucose 104 mg/dL (83-110); Potassium 4.0 mmol/L (3.5-5.1); Sodium 135 mmol/L (136-145)
[2025-02-11 07:47] LABS: Vancomycin, Trough 23.6 ug/mL
[2025-02-11] MEDS: FLU (Fluad Triv) 25-26 (65UP)PF 45 MCG/0.5 ML Syringe IM ONE (14:37)
[2025-02-12 05:25] LABS: #Basophils 0.04 10x3/uL (0.0-0.2); #Eosinophils 0.18 10x3/uL (0.0-0.7); #Monocytes 0.51 10x3/uL (0.11-0.59); #Neutrophils 2.82 10x3/uL (1.40-6.50); %Basophils 0.8 % (0.0-1.0); %Eosinophils 3.8 % (0.0-10.0); %Lymphocytes 22.7 % (21.0-51.0); %Monocytes 10.8 % (0.0-10.0); %Neutrophils 60.0 % (42.0-75.0); Hematocrit 28.3 % (36.0-47.0); Hemoglobin 9.1 g/dL (12.0-16.0); Mean Corpuscular Hemoglobin 32.9 pg (27.0-31.0); Mean Corpuscular Volume 102.2 fL (78.0-98.0); Platelet Count 145 10x3/uL (130-400); Red Blood Cell (RBC) Count 2.77 mill/uL (4.20-5.40); White Blood Cell (WBC) Count 4.71 10x3/uL (4.8-10.8)
[2025-02-12 05:44] LABS: Anion Gap 15 mmol/L (10-20); BUN (Urea Nitrogen) 20 mg/dL (9.8-20.1); Calc. Creatinine Clearance 16 mL/min (70-130); Calcium 8.9 mg/dL (7.8-10.44); Carbon Dioxide 29 mmol/L (23-31); Chloride 98 mmol/L (98-107); Glucose 91 mg/dL (83-110); Potassium 3.7 mmol/L (3.5-5.1); Sodium 138 mmol/L (136-145)
[2025-02-13 07:14] LABS: Anion Gap 19 mmol/L (10-20); BUN (Urea Nitrogen) 34 mg/dL (9.8-20.1); Calc. Creatinine Clearance 11 mL/min (70-130); Calcium 9.1 mg/dL (7.8-10.44); Carbon Dioxide 27 mmol/L (23-31); Chloride 96 mmol/L (98-107); Glucose 94 mg/dL (83-110); Potassium 4.2 mmol/L (3.5-5.1); Sodium 138 mmol/L (136-145)
[2025-02-13 08:10] LABS: #Basophils 0.05 10x3/uL (0.0-0.2); #Eosinophils 0.18 10x3/uL (0.0-0.7); #Monocytes 0.46 10x3/uL (0.11-0.59); #Neutrophils 3.64 10x3/uL (1.40-6.50); %Basophils 0.9 % (0.0-1.0); %Eosinophils 3.2 % (0.0-10.0); %Lymphocytes 20.8 % (21.0-51.0); %Monocytes 8.1 % (0.0-10.0); %Neutrophils 64.2 % (42.0-75.0); Hematocrit 30.9 % (36.0-47.0); Hemoglobin 10.1 g/dL (12.0-16.0); Mean Corpuscular Hemoglobin 33.2 pg (27.0-31.0); Mean Corpuscular Volume 101.6 fL (78.0-98.0); Platelet Count 144 10x3/uL (130-400); Red Blood Cell (RBC) Count 3.04 mill/uL (4.20-5.40); White Blood Cell (WBC) Count 5.67 10x3/uL (4.8-10.8)
[2025-02-13] MEDS: PNEUMOC 20-VAL CONJ-DIP CRM/PF 0.5 ML SYRINGE IM ONE (18:13)
[2025-02-13 21:46] VITALS: BMI 32.5
[2025-02-14 08:47] LABS: #Basophils 0.04 10x3/uL (0.0-0.2); #Eosinophils 0.16 10x3/uL (0.0-0.7); #Monocytes 0.41 10x3/uL (0.11-0.59); #Neutrophils 5.06 10x3/uL (1.40-6.50); %Basophils 0.5 % (0.0-1.0); %Eosinophils 2.2 % (0.0-10.0); %Lymphocytes 19.9 % (21.0-51.0); %Monocytes 5.6 % (0.0-10.0); %Neutrophils 69.6 % (42.0-75.0); Hematocrit 29.9 % (36.0-47.0); Hemoglobin 9.7 g/dL (12.0-16.0); Mean Corpuscular Hemoglobin 32.7 pg (27.0-31.0); Mean Corpuscular Volume 100.7 fL (78.0-98.0); Platelet Count 142 10x3/uL (130-400); Red Blood Cell (RBC) Count 2.97 mill/uL (4.20-5.40); White Blood Cell (WBC) Count 7.28 10x3/uL (4.8-10.8)
[2025-02-14 09:03] LABS: Vancomycin, Trough 20.3 ug/mL
[2025-02-14 09:05] LABS: ALT (SGPT) 18 U/L (Less than 34); AST (SGOT) 29 U/L (11-34); Albumin 3.1 g/dL (3.1-4.5); Alkaline Phosphatase 64 U/L (40-110); Anion Gap 20 mmol/L (10-20); BUN (Urea Nitrogen) 43 mg/dL (9.8-20.1); Bilirubin, Total 0.5 mg/dL (0.3-1.2); Calc. Creatinine Clearance 9 mL/min (70-130); Calcium 8.7 mg/dL (7.8-10.44); Carbon Dioxide 24 mmol/L (23-31); Chloride 98 mmol/L (98-107); Globulin 3.2 g/dL (2.4-3.5); Glucose 74 mg/dL (83-110); Magnesium 2.2 mg/dL (1.6-2.6); Potassium 4.3 mmol/L (3.5-5.1); Sodium 138 mmol/L (136-145)
[2025-02-15 04:22] LABS: #Basophils 0.05 10x3/uL (0.0-0.2); #Eosinophils 0.12 10x3/uL (0.0-0.7); #Monocytes 0.47 10x3/uL (0.11-0.59); #Neutrophils 4.18 10x3/uL (1.40-6.50); %Basophils 0.8 % (0.0-1.0); %Eosinophils 2.0 % (0.0-10.0); %Lymphocytes 16.9 % (21.0-51.0); %Monocytes 7.8 % (0.0-10.0); %Neutrophils 69.5 % (42.0-75.0); Hematocrit 31.9 % (36.0-47.0); Hemoglobin 10.2 g/dL (12.0-16.0); Mean Corpuscular Hemoglobin 32.6 pg (27.0-31.0); Mean Corpuscular Volume 101.9 fL (78.0-98.0); Platelet Count 136 10x3/uL (130-400); Red Blood Cell (RBC) Count 3.13 mill/uL (4.20-5.40); White Blood Cell (WBC) Count 6.02 10x3/uL (4.8-10.8)
[2025-02-15 04:42] LABS: ALT (SGPT) 21 U/L (Less than 34); AST (SGOT) 32 U/L (11-34); Albumin 3.3 g/dL (3.1-4.5); Alkaline Phosphatase 72 U/L (40-110); Anion Gap 18 mmol/L (10-20); BUN (Urea Nitrogen) 20 mg/dL (9.8-20.1); Bilirubin, Total 0.5 mg/dL (0.3-1.2); Calc. Creatinine Clearance 15 mL/min (70-130); Calcium 9.1 mg/dL (7.8-10.44); Carbon Dioxide 24 mmol/L (23-31); Chloride 101 mmol/L (98-107); Globulin 3.4 g/dL (2.4-3.5); Glucose 75 mg/dL (83-110); Magnesium 2.2 mg/dL (1.6-2.6); Potassium 4.4 mmol/L (3.5-5.1); Sodium 139 mmol/L (136-145)
[2025-02-15 20:04] VITALS: BP 141/61; TEMP 97.5
== END 2025-02-15 20:29 | DRG 871 ==
LOC: ERS 18:52 → ERHOLD 21:15 → 2NO 02-08 00:52
PROVIDERS: ADMIT Internal Medicine; ATTEND Student in an Organized Health Care Education/Training Program
PROC: 3E03329 Introduction of Other Anti-infective into Peripheral Vein, Percutaneous Approach (ICD-10-PCS; principal; 2025-02-07)
PROC: 3E0234Z Introduction of Serum, Toxoid and Vaccine into Muscle, Percutaneous Approach (ICD-10-PCS; 2025-02-08)
PROC: 3E02340 Introduction of Influenza Vaccine into Muscle, Percutaneous Approach (ICD-10-PCS; 2025-02-08)
PROC: 5A1D70Z Performance of Urinary Filtration, Intermittent, Less than 6 Hours Per Day (ICD-10-PCS; 2025-02-11)
DX: A41.02 Sepsis due to Methicillin resistant Staphylococcus aureus (principal); G93.41 Metabolic encephalopathy; J15.212 Pneumonia due to Methicillin resistant Staphylococcus aureus; J96.01 Acute respiratory failure with hypoxia; N18.6 End stage renal disease; I21.A1 Myocardial infarction type 2; I48.91 Unspecified atrial fibrillation; E11.22 Type 2 diabetes mellitus with diabetic chronic kidney disease; D63.1 Anemia in chronic kidney disease; E87.5 Hyperkalemia; E03.9 Hypothyroidism, unspecified; E83.39 Other disorders of phosphorus metabolism; Z99.2 Dependence on renal dialysis; Z98.890 Other specified postprocedural states; Z95.2 Presence of prosthetic heart valve; Z90.49 Acquired absence of other specified parts of digestive tract; Z88.0 Allergy status to penicillin; Z79.899 Other long term (current) drug therapy; Z79.82 Long term (current) use of aspirin; Z87.440 Personal history of urinary (tract) infections; Z89.512 Acquired absence of left leg below knee; Z23 Encounter for immunization
CPT/HCPCS: 36415; 36416; 51701; 71045; 80048; 80053; 80202; 82805; 83605; 83735; 83880; 83970; 84100; 84145; 84484; 85025; 86141; 86704; 86706; 86803; 87040; 87081; 87340; 90935; 93005; 94760; 96361; 96365; 96366; 96367; G0257; J0692; J1644; J1815; J2543; J3373; J3375; J7050; Q5105

== ENCOUNTER 2025-04-07 12:11 | Emergency (ER) | payer MEDICARE, OTHER ==
[2025-04-07 12:50] LABS: #Basophils 0.05 10x3/uL (0.0-0.2); #Eosinophils Less than 0.03 10x3/uL (0.0-0.7); #Monocytes 1.13 10x3/uL (0.11-0.59); #Neutrophils 18.99 10x3/uL (1.40-6.50); %Basophils 0.2 % (0.0-1.0); %Eosinophils 0.1 % (0.0-10.0); %Lymphocytes 4.2 % (21.0-51.0); %Monocytes 5.3 % (0.0-10.0); %Neutrophils 89.4 % (42.0-75.0); Hematocrit 29.1 % (36.0-47.0); Hemoglobin 9.7 g/dL (12.0-16.0); Mean Corpuscular Hemoglobin 31.5 pg (27.0-31.0); Mean Corpuscular Volume 94.5 fL (78.0-98.0); Platelet Count 177 10x3/uL (130-400); Red Blood Cell (RBC) Count 3.08 mill/uL (4.20-5.40); White Blood Cell (WBC) Count 21.27 10x3/uL (4.8-10.8)
[2025-04-07 13:04] LABS: ALT (SGPT) 40 U/L (Less than 34); AST (SGOT) 76 U/L (11-34); Albumin 2.8 g/dL (3.1-4.5); Alkaline Phosphatase 209 U/L (40-110); Anion Gap 19 mmol/L (10-20); BUN (Urea Nitrogen) 39 mg/dL (9.8-20.1); Bilirubin, Total 0.7 mg/dL (0.3-1.2); CK (CPK) 358 U/L (29-168); Calc. Creatinine Clearance 0 mL/min (70-130); Calcium 9.5 mg/dL (7.8-10.44); Carbon Dioxide 27 mmol/L (23-31); Chloride 91 mmol/L (98-107); Globulin 4.5 g/dL (2.4-3.5); Glucose 150 mg/dL (83-110); Potassium 3.9 mmol/L (3.5-5.1); Sodium 133 mmol/L (136-145)
[2025-04-07 13:07] LABS: INR-International Normal Ratio 1.4; PTT 35.4 sec (22.9-36.1); Prothrombin Time 17.6 sec (12.0-14.7)
[2025-04-07] MEDS ORDERED: Iopamidol-370 76% 500 ML MDV (1 ML CHARGE) ONE (13:30)
[2025-04-07] MEDS ORDERED: Heparin 5,000 UNITS/ML VIAL ONE (15:10)
== END 2025-04-07 16:40 | disposition short-term general hospital (02) ==
LOC: ERS 12:11
DX: I74.3 Embolism and thrombosis of arteries of the lower extremities (principal); E11.22 Type 2 diabetes mellitus with diabetic chronic kidney disease; N18.9 Chronic kidney disease, unspecified; E78.5 Hyperlipidemia, unspecified; E03.9 Hypothyroidism, unspecified; Z79.899 Other long term (current) drug therapy; Z79.82 Long term (current) use of aspirin; Z79.890 Hormone replacement therapy
CPT/HCPCS: 73706; 80053; 82550; 83605; 85025; 85610; 85730; 93971; 96365; 96366; 96375; 99285; J1644 ×2; Q9967; 36415